=== PATIENT | female | born 1930 | race Caucasian/White ===

== ENCOUNTER 2016-10-08 07:45 | Inpatient (IN) | payer OTHER ==
[~2016-10-08] VITALS: Ht 152.4 cm; Wt 68.0 kg
--- NOTE | 2016-10-08 07:51 | ED GI/GU/ABDOMINAL COMPLAINT ---
History of Present Illness General Chief Complaint: Abdominal Pain/Flank Pain Stated Complaint: BIBA R FLANK PAIN Source: patient, EMS Exam Limitations: no limitations Vital Signs & Intake/Output Vital Signs & Intake/Output Vital Signs Date Time Temp Pulse Resp B/P Pulse O2 O2 Flow FiO2 Ox Delivery Rate 10/08 1650 98.5 69 20 200/90 92 Nasal 3.0L Cannula 10/08 1411 94 Nasal 3.0L Cannula 10/08 1410 99.0 64 22 178/75 87 Room Air 10/08 0946 98.3 10/08 0930 98.3 62 16 156/74 92 Room Air 10/08 0838 62 196/84 10/08 0819 98.3 10/08 0759 98.3 62 18 196/84 94 Room Air Allergies Coded Allergies: Penicillins (Intermediate, HIVES, ITCHING 10/08/16) Reconcile Medications Acetaminophen With Codeine (Acetaminophen-Cod #3 Tablet) 300 MG-30 MG TABLET 1 TAB PO DAILY PRN PAIN (Reported) Amlodipine Besylate/Benazepril (Amlodipine-Benazepril 10-40 MG) 10 MG-40 MG CAPSULE 1 CAP PO DAILY HEART (Reported) Clopidogrel Bisulfate (Clopidogrel) 75 MG TABLET 1 TAB PO DAILY BLOOD THINNER (Reported) Levothyroxine Sodium (Synthroid) 50 MCG TABLET 1 TAB PO DAILY AC THYROID ( Reported) Metoprolol Tartrate 25 MG TABLET 1 TAB PO BID HEART (Reported) Olanzapine 5 MG TABLET 0.5 TAB PO QPM SLEEP (Reported) Rabeprazole Sodium 20 MG TABLET.DR 1 TAB PO DAILY GI (Reported) Triage Nurses Notes Reviewed? yes ? n Is pt currently ? No Onset: Abrupt Duration: day(s): (1) Timing: multiple episodes today Location: right flank Activities at Onset: none No Modifying Factors: none Associated Symptoms: abdominal pain, nausea/vomiting HPI: 86 year female h/o previous AVR presents via EMS from home for chief complaint of sudden onset 8/10 right flank pain. Had similar symptoms 2 days ago which resolved on its own. Denies urinary symptoms. Positive vomiting, chills, epigastric pain, diarrhea. Denies chest pain, sob, blood in urine or stool. She reports vomiting all night long. Past History Travel History Traveled to [place] past 21 day No Medical History Any Pertinent Medical History? see below for history Cardiovascular: hypertension Endocrine: hypothyroidism Pneumonia Vaccine: 07/04/09 Influenza Vaccine: 04/17/12 Surgical History Surgical History: AVR Psychosocial History Who do you live with Patient/Self Services at Home None What is your primary language Romansh Tobacco Use: Quit >30 days ago Family History Hx Contributory? No Review of Systems Review of Systems Constitutional: Reports: chills, fever. EENTM: Reports: no symptoms. Respiratory: Reports: no symptoms. Cardiovascular: Reports: no symptoms. GI: Reports: abdominal pain, diarrhea, nausea, vomiting. Genitourinary: Denies: discharge, dysuria, frequency, hematuria. Musculoskeletal: Reports: no symptoms. Skin: Reports: no symptoms. Neurological/Psychological: Reports: no symptoms. Hematologic/Endocrine: Denies: bruising, bleeding, polyuria, polydipsia. Immunologic/Allergic: Denies: splenectomy. All Other Systems: Reviewed and Negative Physical Exam Physical Exam General Appearance: well developed/nourished, alert, awake, mild distress, moderate distress Head: atraumatic, normal appearance Eyes: Bilateral: normal appearance, PERRL, EOMI. Ears, Nose, Throat, Mouth: hearing grossly normal, DRY MUCUS MEMBRANES Neck: normal inspection, supple, full range of motion Respiratory: normal breath sounds, chest non-tender, no respiratory distress Cardiovascular: murmur Peripheral Pulses: 2+ radial (R), 2+ radial (L) Gastrointestinal: soft, tenderness (RUQ) Extremities: normal range of motion Neurologic/Psych: awake, alert, oriented x 3 Skin: intact, normal color, warm/dry Core Measures ACS in differential dx? No Severe Sepsis Present: No Septic Shock Present: No Progress Differential Diagnosis: biliary colic, cholecystitis, diverticulitis, gastritis, hepatitis, hernia, ischemic bowel, inflamm bowel dis, kidney stone, pancreatitis , peptic ulcer, PUD/GERD, perforated viscous, UTI/pyelo Plan of Care: Orders Procedure Date/time Status OXYGEN 10/16 UNK Complete OXYGEN DAILY CHARGE 10/16 UNK Complete INCENTIVE SPIROMETRY TRX CHG 10/15 UNK Complete OXYGEN 10/15 UNK Complete OXYGEN DAILY CHARGE 10/15 UNK Complete 12:39 PM Acute cholecystitis on MRI. Multiple gallstones, pericholecystic fluid, dilated cbp/pancreatic dilitation. CBD 1.1, panc duct 0.7 cm 1:14 PM D/W DR BOSWELL, SURGICAL PA PAGED. 3:15 PM PATIENT IN GI SUITE FOR ERCP. SUCCESSFUL ERCP. PATIENT WILL BE ADMITTD TO MEDICAL SERVICE UNDER DR WIGGINS. ([facility] ACEVEDO,CECILIA) Diagnostic Imaging: Viewed by Me: Radiology Read, CT Scan, MRI. Discussed w/RAD: Radiology Read, CT Scan, MRI. Initial ED EKG: LBBB Prior EKG: unchanged Comments: PATIENT: SRAVANTHI PARIKH PRESENT AGE: 86 PATIENT ACCOUNT NO: [id number] : [birth year] LOCATION: [facility] ORDERING PHYSICIAN: CECILIA BOURGEOIS MD SERVICE DATE: 10/08/16 EXAM TYPE: CAT - CT ABD & PELVIS W IV CONTRAST EXAMINATION: CT ABDOMEN AND PELVIS WITH CONTRAST CLINICAL INFORMATION: Right-sided abdominal pain and diarrhea. COMPARISON: CT of the abdomen and pelvis from 03/13/2010, CT chest from 01/28/2012 TECHNIQUE: Multidetector volumetric imaging was performed of the abdomen and pelvis before and after the IV administration of 95 mL of Optiray 320 intravenous contrast. Sagittal and coronal reformatted images were obtained on the technologist's workstation. DLP: 782 mGy-cm FINDINGS: LUNG BASES: There is partially visualized nodular pleural thickening along the right anterior pleural surface, stable from 2012. There are dependent changes within the lungs. Platelike opacities in the left base compatible with atelectasis. There is a large partially visualized hiatal hernia. Mild cardiomegaly is stable. There is calcification in the region of the mitral annulus are are partially imaged median sternotomy wires. A prosthetic aortic valve is imaged on the fractionating still operator. LIVER, GALLBLADDER, AND BILIARY TREE: The liver is normal in contour and attenuation. There is mild scattered intrahepatic biliary ductal dilatation. The common bile duct measures approximately 1 cm in diameter with normal tapering in the pancreatic head. There is mild prominence of the distal pancreatic duct as well, measuring 4 to 5 mm in diameter. The gallbladder is unremarkable with no evidence of radiopaque gallstones, gallbladder wall thickening, or obvious pericholecystic inflammatory changes. PANCREAS: Unremarkable. SPLEEN: Unremarkable. 2 tiny nodularities along the left anterior abdominal periphery appear to have been present previously as well and are most suggestive of small splenules. ADRENAL GLANDS: Mild thickening of the adrenal glands bilaterally, stable. KIDNEYS AND URETERS: There is no hydronephrosis or nephrolithiasis. Oval hypodensities are visualized within both kidneys, the largest of which in the interpolar region of the left kidney appears to have slightly grown in the interval since 2009 and currently measures 2.5 cm. The course of both ureters appears unremarkable. BLADDER: The bladder is under distended and unremarkable. GASTROINTESTINAL TRACT: Numerous sigmoid diverticula are visualized. Scattered diverticula are also present throughout the remainder of the colon. No convincing surrounding inflammation. 2 tiny outpouchings in the region of the cecum are noted which may reflect small diverticula although a short appendix could be represented by either 1. Otherwise no definitive appendix is visualized. Loops of small bowel appear fairly normal in caliber. ABDOMINAL WALL: No significant hernia is appreciated. LYMPH NODES: Small mesenteric and retroperitoneal lymph nodes are visualized without lymphadenopathy. A stable small calcified gastrohepatic ligament node is redemonstrated. VASCULAR: There is heavy atherosclerotic calcification without aneurysmal dilatation of the aorta. PELVIC VISCERA: There is a left adnexal cyst measuring 1.6 cm, which has grown in the interval since 2009. There appears to have been hysterectomy. OSSEOUS STRUCTURES: No compression deformities are visualized. There is multilevel spondylosis and a mild levoconvex lumbar scoliosis. No acute fractures are evident IMPRESSION: There are numerous colonic diverticula particularly in the sigmoid region without definitive superimposed inflammation. Mild intrahepatic biliary ductal dilatation. Correlation with LFTs is suggested. The common bile duct and distal pancreatic duct are slightly prominent, but taper normally. Left adnexal cyst measuring 1.6 cm. This could be further characterized with pelvic ultrasound. Partially visualized right-sided pleural plaques, stable from a chest CT of 2011. Mild cardiomegaly, aortic valve replacement, and median sternotomy wires, stable. Moderate sized hiatal hernia. Lumbar spondylosis and levoconvex lumbar scoliosis without compression deformity. DICTATED BY: DONA ELIZALDE MD DATE/TIME DICTATED:10/08/16952 ELECTRICAL INSTRUMENT MAKER:DAYAN DATE/TIME TRANSCRIBED:10/08/16952 CONFIDENTIAL, DO NOT COPY WITHOUT APPROPRIATE AUTHORIZATION. <Electronically signed in Other Vendor System> SIGNED BY: DONA ELIZALDE MD 10/08/16 1011 PATIENT: SRAVANTHI PARIKH PRESENT AGE: 86 PATIENT ACCOUNT NO: [id number] : [birth year] LOCATION: [facility] ORDERING PHYSICIAN: CECILIA BOURGEOIS MD SERVICE DATE: 10/08/16 EXAM TYPE: MRI - MRI-ABD W/O-W LILA EXAMINATION: MR ABDOMEN WITHOUT AND WITH CONTRAST CLINICAL INFORMATION: Evaluate for mass or biliary stones COMPARISON: CT abdomen and pelvis most recent prior dated 10/08/2016 TECHNIQUE: MRI of the abdomen before and after the IV administration of 14 mL of Magnevist was obtained using routine sequences. FINDINGS: Images are partly degraded by patient motion. Lung bases demonstrate dependent atelectatic changes. GALLBLADDER AND BILIARY TREE: Multiple small gallstones and sludge noted in the gallbladder extending into the gallbladder neck and cystic duct. (Series 8 image 28-51). There is mild pericholecystic edema especially evident at the level of the gallbladder neck. No gross evidence of gallbladder wall thickness. Multiple small calculi and sludge also noted within the CBD (series 8 image 32) . CBD measures approximately 1 to 1.1 cm in maximal diameter. Although it tapers the study, there is persistent presence of small amount of sludge and tiny stones. Intrahepatic biliary ductal dilatation. Distended gallbladder with mild enhancement of the gallbladder wall. LIVER: No evidence of hepatic steatosis. Post gadolinium images are degraded by patient motion. No gross evidence of abnormal enhancement. Intrahepatic biliary ductal dilatation. PANCREAS: Mild diffuse atrophy. There is pancreatic ductal dilatation especially evident at the level of the pancreatic head measuring approximately 0.6 cm (series 8 image 38). No gross evidence of peripancreatic fluid or edema. Post gadolinium images also degraded by patient motion do not demonstrate any gross evidence of abnormal enhancement. Spleen: Unremarkable. Adrenal glands: Within normal limits. Kidneys: T1 hypointense and T2 hyperintense dominant cystic structure noted in the mid outer aspect left kidney (series 3 image 22) measuring approximately 2.6 x 2.2 cm. There is suggestion of a debris level in the dependent portion of the cyst range disease series 3 image 22-23). Although the evaluation is significantly degraded post gadolinium sequences, there is subtle suggestion of enhancement along the posterior lateral aspect of the complex cyst (series 13-15 image 32/52 and series 17 image 31). Smaller T2 hyperintense cystic foci noted in bilateral renal cortices varying in size from 0.2 cm to 0.5 cm. GI TRACT: Moderate to large hiatal hernia. Visualized bowel loops are otherwise unremarkable. LYMPHOVASCULAR STRUCTURES: Evaluation of the portal venous system is limited due to motion degradation. No gross abnormality. Aorta is within normal limits in size. No gross evidence of lymphadenopathy. Additional findings: T2 hyperintense cystic foci noted in the regions of bilateral ovary/adnexa (series 2 image 10). These can be further assessed with nonemergent pelvic ultrasound. OSSEOUS STRUCTURES: Moderate scoliosis. No acute or suspicious osseous abnormality. IMPRESSION: 1. Multiple gallstones extending to the neck of the gallbladder and possibly cystic duct. Mild enhancement of the gallbladder wall with mild pericholecystic edema . Findings are suspicious for acute cholecystitis. 2. Choledocholithiasis with intrahepatic and extrahepatic biliary ductal dilatation . 3. Pancreatic ductal dilatation. No definite evidence of pancreatitis. No suspicious mass identified in the pancreas. Evaluation however is limited on the postgadolinium sequences due to motion degradation. 4. Complex cystic lesion lateral aspect mid left kidney. Urologic correlation recommended. 5. Bilateral ovarian cysts. Monitoring with nonemergent follow-up pelvic ultrasound recommended. Findings discussed with Dr. Bourgeois at 12:40 PM on 10/08/2016. DICTATED BY: LIZETH FAGAN MD DATE/TIME DICTATED:10/08/161228 ELECTRICAL INSTRUMENT MAKER:DAYAN DATE/TIME TRANSCRIBED:10/08/161228 CONFIDENTIAL, DO NOT COPY WITHOUT APPROPRIATE AUTHORIZATION. <Electronically signed in Other Vendor System> SIGNED BY: LIZETH FAGAN MD 10/08/16 1308 PATIENT: SRAVANTHI PARIKH PRESENT AGE: 86 PATIENT ACCOUNT NO: [id number] : [birth year] LOCATION: [facility] ORDERING PHYSICIAN: CECILIA BOURGEOIS MD SERVICE DATE: 10/08/16 EXAM TYPE: RAD - XRY-PORTABLE CHEST XRAY EXAMINATION: XR PORTABLE CHEST CLINICAL INFORMATION: Sepsis. Hypoxia. COMPARISON: 05/09/2012 TECHNIQUE: Portable AP view of the chest was obtained. FINDINGS: No acute pulmonary edema, focal consolidation or pleural effusion. There are old bilateral pleural plaques. Linear subpleural opacity of scarring or atelectasis is seen subjacent to a pleural plaque in the left lateral chest. Cardiomediastinal silhouette is mildly enlarged. Chronic prominence of the mediastinal fat and paracardiac fat pads. Moderate-sized hiatal hernia. Atherosclerotic calcification of the aorta. The sternotomy wires are intact. 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 IMPRESSION: 1. No evidence of acute pneumonia or pulmonary edema. 2. Moderate-sized hiatal hernia. 3. 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 DICTATED BY: RUPALI ARAYA MD DATE/TIME DICTATED:10/08/161438 ELECTRICAL INSTRUMENT MAKER:DAYAN DATE/TIME TRANSCRIBED:10/08/161438 CONFIDENTIAL, DO NOT COPY WITHOUT APPROPRIATE AUTHORIZATION. <Electronically signed in Other Vendor System> SIGNED BY: RUPALI ARAYA MD 10/08/16 1448 Departure Departure Time of Disposition: 1648 Disposition: STILL A PATIENT Condition: Stable Clinical Impression Primary Impression: Acute cholecystitis Secondary Impressions: Choledocholithiasis Referrals: ZAIDA ACEVEDO,TYLER Torrez (PCP/Family) Departure Forms: Customer Survey General Discharge Information Admission Note Spoke With: JORGITO WIGGINS MD Documentation of Exam: Documentation of any treatments & extenuating circumstances including Concerns Regarding Discharge (functional status, medication knowledge or non-compliance, living conditions, etc.) that warrant an admission rather than observation: [IV FLUIDS, IV ABX, SERIAL ABDOMINAL EXAMS, MONITOR I/O, F/U CULTURES, DR BOSWELL SURGICAL CONSULT, GI FOLLOW UP AFTER ERCP]
[2016-10-08] MEDS ORDERED: SYNTHROID50 MCG PO (08:19)
[2016-10-08] MEDS ORDERED: CLOPIDOGREL75 M1 PO (08:19)
[2016-10-08] MEDS ORDERED: AMLODIPINE-BEN1 EAC5 PO (08:19)
[2016-10-08] MEDS ORDERED: METOPROLOL TART25 M1 PO (08:19)
[2016-10-08] MEDS ORDERED: RABEPRAZOLE SOD20 M1 PO (08:20)
[2016-10-08] MEDS ORDERED: ACETAMINOPHEN-1 EAC3 PO (08:21)
--- NOTE | 2016-10-08 08:24 | NUR ---
PT BIBA FROM HOME WITH RIGHT SIDED ABDOMINAL PAIN SINCE 2AM. DENIES ANY URINARY S/S. STATES SHE HAD A FEW EPISODES OF VOMITING AND FEELS NAUSEOUS AT THIS TIME. DENIES ANY INCREASED PAIN UPON PALPATION. DENIES ANY CP/SOB. STATES SHE HAD LOOSE STOOLS YESTERDAY. PA STUDENT AND DR GROSSMAN TO [facility].
[2016-10-08 08:30] LABS: ABSOLUTE BASOPHIL COUNT 0 /CUMM (0.0-0.2); ABSOLUTE EOSINOPHIL COUNT 0 /CUMM (0.0-0.7); ABSOLUTE LYMPH COUNT 0.8 /CUMM (1.2-3.4); ABSOLUTE MONOCYTE COUNT 0.2 /CUMM (0.10-0.60); EOSINOPHIL % 0 % (0-5)
[2016-10-08 08:31] LABS: ABSOLUTE GRANULOCYTE CT 9.2 /CUMM (1.4-6.5); BASOPHIL % 0.1 % (0.0-2.0); HEMATOCRIT 49.7 % (37-47); MEAN CORPUSCULAR HGB CONC 33.2 G/DL (33.0-37.0); MEAN CORPUSCULAR VOLUME 87.3 FL (81.0-99.0); MEAN PLATELET VOLUME 9.1 FL (7.4-10.4); PLATELET COUNT 217 /CUMM (130-400); RBC DISTRIBUTION WIDTH 13.7 % (11.5-14.5); WHITE BLOOD CELL COUNT 10.3 /CUMM (4.8-10.8)
[2016-10-08] MEDS ORDERED: OLANZAPINE5 M2 PO (08:32)
[2016-10-08 08:39] LABS: PT 11.2 SEC (9.4-12.5); PTT 33 SEC (25-37)
[2016-10-08 08:43] LABS: GRANULOCYTE % 89.5 % (42.2-75.2)
--- NOTE | 2016-10-08 09:17 | NUR ---
PT AMBULATORY TO RESTROOM. URINE SENT TO LAB. REPOSITIONED IN BED.
--- NOTE | 2016-10-08 09:20 | NUR ---
[facility] ADMINISTERED ORDERED (SEE MAR) PTS BP 156/74 MANUAL POST ADMINISTRATION.
--- NOTE | 2016-10-08 09:30 | NUR ---
CRITICAL TEST RESULTS [id number] SRAVANTHI PARIKH 86 F TESTS AND RESULTS: LACTIC 2.1 Results received and read back by: HANSEL TRUJILLO Results received date and time: 10/08/16 0930 The following provider was notified of the results, and read the results back: DR GROSSMAN Notified date and time: 10/08/16 at 0925
--- NOTE | 2016-10-08 09:41 | NUR ---
PT TO CAT.
--- NOTE | 2016-10-08 09:46 | NUR ---
PT TO AND FROM CAT.
--- NOTE | 2016-10-08 09:46 | NUR ---
MEDICATED WITH MORPHINE 2MG (SEE MAR)
--- NOTE | 2016-10-08 10:11 | CT SCAN REPORT ---
EXAMINATION: CT ABDOMEN AND PELVIS WITH CONTRAST CLINICAL INFORMATION: Right-sided abdominal pain and diarrhea. COMPARISON: CT of the abdomen and pelvis from 03/13/2010, CT chest from 01/28/2012 TECHNIQUE: Multidetector volumetric imaging was performed of the abdomen and pelvis before and after the IV administration of 95 mL of Optiray 320 intravenous contrast. Sagittal and coronal reformatted images were obtained on the technologist's workstation. DLP: 782 mGy-cm FINDINGS: LUNG BASES: There is partially visualized nodular pleural thickening along the right anterior pleural surface, stable from 2012. There are dependent changes within the lungs. Platelike opacities in the left base compatible with atelectasis. There is a large partially visualized hiatal hernia. Mild cardiomegaly is stable. There is calcification in the region of the mitral annulus are are partially imaged median sternotomy wires. A prosthetic aortic valve is imaged on the health information managers. LIVER, GALLBLADDER, AND BILIARY TREE: The liver is normal in contour and attenuation. There is mild scattered intrahepatic biliary ductal dilatation. The common bile duct measures approximately 1 cm in diameter with normal tapering in the pancreatic head. There is mild prominence of the distal pancreatic duct as well, measuring 4 to 5 mm in diameter. The gallbladder is unremarkable with no evidence of radiopaque gallstones, gallbladder wall thickening, or obvious pericholecystic inflammatory changes. PANCREAS: Unremarkable. SPLEEN: Unremarkable. 2 tiny nodularities along the left anterior abdominal periphery appear to have been present previously as well and are most suggestive of small splenules. ADRENAL GLANDS: Mild thickening of the adrenal glands bilaterally, stable. KIDNEYS AND URETERS: There is no hydronephrosis or nephrolithiasis. Oval hypodensities are visualized within both kidneys, the largest of which in the interpolar region of the left kidney appears to have slightly grown in the interval since 2009 and currently measures 2.5 cm. The course of both ureters appears unremarkable. BLADDER: The bladder is under distended and unremarkable. GASTROINTESTINAL TRACT: Numerous sigmoid diverticula are visualized. Scattered diverticula are also present throughout the remainder of the colon. No convincing surrounding inflammation. 2 tiny outpouchings in the region of the cecum are noted which may reflect small diverticula although a short appendix could be represented by either 1. Otherwise no definitive appendix is visualized. Loops of small bowel appear fairly normal in caliber. ABDOMINAL WALL: No significant hernia is appreciated. LYMPH NODES: Small mesenteric and retroperitoneal lymph nodes are visualized without lymphadenopathy. A stable small calcified gastrohepatic ligament node is redemonstrated. VASCULAR: There is heavy atherosclerotic calcification without aneurysmal dilatation of the aorta. PELVIC VISCERA: There is a left adnexal cyst measuring 1.6 cm, which has grown in the interval since 2009. There appears to have been hysterectomy. OSSEOUS STRUCTURES: No compression deformities are visualized. There is multilevel spondylosis and a mild levoconvex lumbar scoliosis. No acute fractures are evident IMPRESSION: There are numerous colonic diverticula particularly in the sigmoid region without definitive superimposed inflammation. Mild intrahepatic biliary ductal dilatation. Correlation with LFTs is suggested. The common bile duct and distal pancreatic duct are slightly prominent, but taper normally. Left adnexal cyst measuring 1.6 cm. This could be further characterized with pelvic ultrasound. Partially visualized right-sided pleural plaques, stable from a chest CT of 2011. Mild cardiomegaly, aortic valve replacement, and median sternotomy wires, stable. Moderate sized hiatal hernia. Lumbar spondylosis and levoconvex lumbar scoliosis without compression deformity.
--- NOTE | 2016-10-08 10:50 | NUR ---
SPOKE TO DAUGHTER, STATES THAT PT HAS A PIG VALVE IN PLACE. UNSURE OF ANYTHING RELATED WITH THE VALVE. MRI CALLED AND MADE AWARE OF SAME - THEY ARE GOING TO CALL DAUGHTER WELL.
--- NOTE | 2016-10-08 11:03 | NUR ---
PT TO MRI.
--- NOTE | 2016-10-08 12:00 | NUR ---
REPEAT LACTIC DRAWN AND SENT BY THIS [facility] SST, LAV, LARKIN
--- NOTE | 2016-10-08 12:46 | NUR ---
PT AMBULATORY TO BATHROOM WITH WALKER, GAIT STABLE.
--- NOTE | 2016-10-08 13:08 | MRI REPORT ---
EXAMINATION: MR ABDOMEN WITHOUT AND WITH CONTRAST CLINICAL INFORMATION: Evaluate for mass or biliary stones COMPARISON: CT abdomen and pelvis most recent prior dated 10/08/2016 TECHNIQUE: MRI of the abdomen before and after the IV administration of 14 mL of Magnevist was obtained using routine sequences. FINDINGS: Images are partly degraded by patient motion. Lung bases demonstrate dependent atelectatic changes. GALLBLADDER AND BILIARY TREE: Multiple small gallstones and sludge noted in the gallbladder extending into the gallbladder neck and cystic duct. (Series 8 image 28-51). There is mild pericholecystic edema especially evident at the level of the gallbladder neck. No gross evidence of gallbladder wall thickness. Multiple small calculi and sludge also noted within the CBD (series 8 image 32) . CBD measures approximately 1 to 1.1 cm in maximal diameter. Although it tapers the study, there is persistent presence of small amount of sludge and tiny stones. Intrahepatic biliary ductal dilatation. Distended gallbladder with mild enhancement of the gallbladder wall. LIVER: No evidence of hepatic steatosis. Post gadolinium images are degraded by patient motion. No gross evidence of abnormal enhancement. Intrahepatic biliary ductal dilatation. PANCREAS: Mild diffuse atrophy. There is pancreatic ductal dilatation especially evident at the level of the pancreatic head measuring approximately 0.6 cm (series 8 image 38). No gross evidence of peripancreatic fluid or edema. Post gadolinium images also degraded by patient motion do not demonstrate any gross evidence of abnormal enhancement. Spleen: Unremarkable. Adrenal glands: Within normal limits. Kidneys: T1 hypointense and T2 hyperintense dominant cystic structure noted in the mid outer aspect left kidney (series 3 image 22) measuring approximately 2.6 x 2.2 cm. There is suggestion of a debris level in the dependent portion of the cyst range disease series 3 image 22-23). Although the evaluation is significantly degraded post gadolinium sequences, there is subtle suggestion of enhancement along the posterior lateral aspect of the complex cyst (series 13-15 image 32/52 and series 17 image 31). Smaller T2 hyperintense cystic foci noted in bilateral renal cortices varying in size from 0.2 cm to 0.5 cm. GI TRACT: Moderate to large hiatal hernia. Visualized bowel loops are otherwise unremarkable. LYMPHOVASCULAR STRUCTURES: Evaluation of the portal venous system is limited due to motion degradation. No gross abnormality. Aorta is within normal limits in size. No gross evidence of lymphadenopathy. Additional findings: T2 hyperintense cystic foci noted in the regions of bilateral ovary/adnexa (series 2 image 10). These can be further assessed with nonemergent pelvic ultrasound. OSSEOUS STRUCTURES: Moderate scoliosis. No acute or suspicious osseous abnormality. IMPRESSION: 1. Multiple gallstones extending to the neck of the gallbladder and possibly cystic duct. Mild enhancement of the gallbladder wall with mild pericholecystic edema . Findings are suspicious for acute cholecystitis. 2. Choledocholithiasis with intrahepatic and extrahepatic biliary ductal dilatation . 3. Pancreatic ductal dilatation. No definite evidence of pancreatitis. No suspicious mass identified in the pancreas. Evaluation however is limited on the postgadolinium sequences due to motion degradation. 4. Complex cystic lesion lateral aspect mid left kidney. Urologic correlation recommended. 5. Bilateral ovarian cysts. Monitoring with nonemergent follow-up pelvic ultrasound recommended. Findings discussed with Dr. Bourgeois at 12:40 PM on 10/08/2016.
--- NOTE | 2016-10-08 13:15 | NUR ---
ROCEPHIN ORDERED (SEE MAR)
--- NOTE | 2016-10-08 14:10 | NUR ---
PTS SATS NOTED TO DROP TO 90%, PLACED ON 3L O2 VIA NC.
--- NOTE | 2016-10-08 14:24 | NUR ---
DR LEOS TO [facility].
--- NOTE | 2016-10-08 14:35 | Cons- Gastroenterology ---
General Information and HPI Consulting Request Date of Consult: 10/08/16 Requested By: Saul Rosado MD Reason for Consult: Choledocholithiasis, right upper quadrant pain. Source of Information: patient, family, old records Exam Limitations: no limitations History of Present Illness: Ms. 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 The patient notes early this morning she was awoken with severe right upper quadrant pain which was associated with bilious vomiting. The pain radiated around to her right flank, but not through to her back. She was without any hematemesis. She has some chills but no documented fevers. She has not had any jaundice and she denies any kenney-colored stool or dark urine, but she has been having some loose non-bloody stool as of late. She takes a PPI at home for heartburn which is controlling that symptom well and other than some intermittent dysphagia to lettuce she has not had any significant solid food dysphagia or dysphagia to liquids. On arrival to the ER she is afebrile and hemodynamically stable and while she continues to complain of some right upper quadrant discomfort she notes it is markedly improved from when it started last night/early this morning. Allergies/Medications Allergies: Coded Allergies: Penicillins (Intermediate, HIVES, ITCHING 10/08/16) Home Med List: Acetaminophen With Codeine (Acetaminophen-Cod #3 Tablet) 300 MG-30 MG TABLET 1 TAB PO DAILY PRN PAIN (Reported) Amlodipine Besylate/Benazepril (Amlodipine-Benazepril 10-40 MG) 10 MG-40 MG CAPSULE 1 CAP PO DAILY HEART (Reported) Clopidogrel Bisulfate (Clopidogrel) 75 MG TABLET 1 TAB PO DAILY BLOOD THINNER (Reported) Levothyroxine Sodium (Synthroid) 50 MCG TABLET 1 TAB PO DAILY AC THYROID ( Reported) Metoprolol Tartrate 25 MG TABLET 1 TAB PO BID HEART (Reported) Olanzapine 5 MG TABLET 0.5 TAB PO QPM SLEEP (Reported) Rabeprazole Sodium 20 MG TABLET.DR 1 TAB PO DAILY GI (Reported) Current Medications: Current Medications Sig/Rajeev Start time Last Medication Dose Route Stop Time Status Admin Acetaminophen 0 .STK-MED ONE 10/08 0816 DC IV Acetaminophen 1,000 MG ONCE ONE 10/08 0815 DC 10/08 N/A 1 UNIT IV 10/08 0829 0819 Ceftriaxone Sodium 0 .STK-MED ONE 10/08 1313 DC .ROUTE Ceftriaxone Sodium 1,000 MG ONCE ONE 10/08 1245 DC / IV 10/08 1246 1330 Enalaprilat 0 .STK-MED ONE 10/08 0829 DC IV Enalaprilat 1.25 MG ONCE ONE 10/08 0815 DC / IV 10/08 0816 0838 Metronidazole 500 MG ONCE ONE 10/08 1245 DC 04/ N/A 1 UNIT IV 10/08 1344 1424 Morphine Sulfate 2 MG ONCE ONE 10/08 0930 DC 10/08 IV 10/08 0931 0946 Morphine Sulfate 0 .STK-MED ONE 10/08 0929 DC .ROUTE Ondansetron HCl 0 .STK-MED ONE 10/08 0816 DC .ROUTE Ondansetron HCl 4 MG ONCE ONE 10/08 0800 DC 10/08 IV 10/08 0801 0819 Sodium Chloride 500 ML BOLUS ONE 10/08 1245 DC 04/ IV 10/08 1344 1315 Sodium Chloride 500 ML BOLUS ONE 10/08 0800 DC 10/08 IV 10/08 0859 0819 Past History Travel History Traveled to [place] past 21 day No Medical History Cardiovascular: hypertension Endocrine: hypothyroidism Surgical History Surgical History: AVR Psychosocial History Services at Home: None Review of Systems Review of Systems Constitutional: Reports: chills, malaise, weakness. Denies: diaphoresis, fever. EENTM: Denies: no symptoms. Cardiovascular: Denies: no symptoms. Respiratory: Denies: no symptoms. GI: Reports: see HPI. Genitourinary: Denies: no symptoms. Musculoskeletal: Reports: joint pain, muscle pain. Denies: joint swelling. Skin: Denies: no symptoms. Neurological/Psychological: Denies: no symptoms. Hematologic/Endocrine: Denies: no symptoms. Immunologic/Allergic: Denies: no symptoms. All Other Systems: Reviewed and Negative Exam & Diagnostic Data Vital Signs and I&O Vital Signs Date Time Temp Pulse Resp B/P Pulse O2 O2 Flow FiO2 Ox Delivery Rate 10/08 1411 94 Nasal 3.0L Cannula 10/08 1410 99.0 64 22 178/75 87 Room Air 04/07 0946 98.3 10/08 0930 98.3 62 16 156/74 92 Room Air 10/08 0838 62 196/84 10/08 0819 98.3 10/08 0759 98.3 62 18 196/84 94 Room Air Intake & Output 10/08 1600 10/08 0400 10/07 04010/06 0400 Intake Total 1100 Output Total 50 Balance 1050 Intake, IV 1100 Output, Urine 50 Physical Exam General Appearance: well developed/nourished, no apparent distress, alert, awake , comfortable Head: atraumatic, normal appearance Eyes: Bilateral: normal appearance. Ears, Nose, Throat: normal pharynx, normal ENT inspection Neck: normal inspection, supple, full range of motion Respiratory: normal breath sounds, chest non-tender, no respiratory distress Cardiovascular: regular rate/rhythm Gastrointestinal: normal bowel sounds, soft, tenderness, mild tenderness to deep palpation of ruq Rectal: deferred Back: normal inspection, normal range of motion Extremities: normal inspection, normal range of motion Skin: intact, normal color, warm/dry Results Pertinent Lab Results: Laboratory Tests 10/08 10/08 1200 0913 Chemistry Lactic Acid (0.7 - 2.1 mmol/L) 2.9 H Urines Urine Color (YEL,AMB,STR) YEL Urine Clarity (CLEAR) CLEAR Urine pH (5.0 - 8.0) 6.5 Ur Specific Freedom (1.001 - 1.035) 1.020 Urine Protein (NEG,<30 MG/DL) TRACE H Urine Ketones (NEG) NEG Urine Nitrite (NEG) NEG Urine Bilirubin (NEG) NEG Urine Urobilinogen (0.1 - 1.0 EU/dl) 0.2 Ur Leukocyte Esterase (NEG) NEG Ur Microscopic SEDIMENT EXAMINED Urine RBC (0 - 5 /HPF) 1-3 Ur Epithelial Cells (NONE,FEW) FEW Urine Bacteria (NEG/NONE) FEW H Hyaline Casts (0/LPF) RARE H Urine Hemoglobin (NEG) SMALL H Urine Glucose (N MG/DL) 250 H 10/08 0810 Chemistry Sodium (137 - 145 mmol/L) 140 Potassium (3.5 - 5.1 mmol/L) 4.4 Chloride (98 - 107 mmol/L) 103 Carbon Dioxide (22 - 30 mmol/L) 24 Anion Gap (5 - 16) 13 BUN (7 - 17 mg/dL) 12 Creatinine (0.5 - 1.0 mg/dL) 0.7 Estimated GFR (>60 ml/min) > 60 BUN/Creatinine Ratio (7 - 25 %) 17.1 Glucose (65 - 99 mg/dL) 183 H Lactic Acid (0.7 - 2.1 mmol/L) 2.1 Calcium (8.4 - 10.2 mg/dL) 9.5 Total Bilirubin (0.2 - 1.3 mg/dL) 0.7 Direct Bilirubin (< 0.4 mg/dL) 0.5 H AST (14 - 36 U/L) 27 ALT (9 - 52 U/L) 37 Alkaline Phosphatase (<127 U/L) 154 H Troponin I (< 0.11 ng/ml) < 0.01 Total Protein (6.3 - 8.2 g/dL) 7.6 Albumin (3.5 - 5.0 g/dL) 4.4 Globulin (1.9 - 4.2 gm/dL) 3.2 Albumin/Globulin Ratio (1.1 - 2.2 %) 1.4 Lipase (23 - 300 U/L) 59 Coagulation PT (9.4 - 12.5 SEC) 11.2 INR (0.90 - 1.19) 1.07 APTT (25 - 37 SEC) 33 Hematology CBC w Diff NO MAN DIFF REQ WBC (4.8 - 10.8 /CUMM) 10.3 RBC (4.20 - 5.40 /CUMM) 5.70 H Hgb (12.0 - 16.0 G/DL) 16.5 H Hct (37 - 47 %) 49.7 H MCV (81.0 - 99.0 FL) 87.3 MCH (27.0 - 31.0 PG) 29.0 RDW (11.5 - 14.5 %) 13.7 Plt Count (130 - 400 /CUMM) 217 MPV (7.4 - 10.4 FL) 9.1 Gran % (42.2 - 75.2 %) 89.5 H Lymphocytes % (20.5 - 51.1 %) 8.1 L Monocytes % (1.7 - 9.3 %) 2.3 Eosinophils % (0 - 5 %) 0 Basophils % (0.0 - 2.0 %) 0.1 Absolute Granulocytes (1.4 - 6.5 /CUMM) 9.2 H Absolute Lymphocytes (1.2 - 3.4 /CUMM) 0.8 L Absolute Monocytes (0.10 - 0.60 /CUMM) 0.2 Absolute Eosinophils (0.0 - 0.7 /CUMM) 0 Absolute Basophils (0.0 - 0.2 /CUMM) 0 PUBS MCHC (33.0 - 37.0 G/DL) 33.2 Imaging/Other Studies: ct scan: EXAM TYPE: CAT - CT ABD & PELVIS W IV CONTRAST EXAMINATION: CT ABDOMEN AND PELVIS WITH CONTRAST CLINICAL INFORMATION: Right-sided abdominal pain and diarrhea. COMPARISON: CT of the abdomen and pelvis from 03/13/2010, CT chest from 01/28/2012 TECHNIQUE: Multidetector volumetric imaging was performed of the abdomen and pelvis before and after the IV administration of 95 mL of Optiray 320 intravenous contrast. Sagittal and coronal reformatted images were obtained on the technologist's workstation. DLP: 782 mGy-cm FINDINGS: LUNG BASES: There is partially visualized nodular pleural thickening along the right anterior pleural surface, stable from 2012. There are dependent changes within the lungs. Platelike opacities in the left base compatible with atelectasis. There is a large partially visualized hiatal hernia. Mild cardiomegaly is stable. There is calcification in the region of the mitral annulus are are partially imaged median sternotomy wires. A prosthetic aortic valve is imaged on the compression molding machine tender. LIVER, GALLBLADDER, AND BILIARY TREE: The liver is normal in contour and attenuation. There is mild scattered intrahepatic biliary ductal dilatation. The common bile duct measures approximately 1 cm in diameter with normal tapering in the pancreatic head. There is mild prominence of the distal pancreatic duct as well, measuring 4 to 5 mm in diameter. The gallbladder is unremarkable with no evidence of radiopaque gallstones, gallbladder wall thickening, or obvious pericholecystic inflammatory changes. PANCREAS: Unremarkable. SPLEEN: Unremarkable. 2 tiny nodularities along the left anterior abdominal periphery appear to have been present previously as well and are most suggestive of small splenules. ADRENAL GLANDS: Mild thickening of the adrenal glands bilaterally, stable. KIDNEYS AND URETERS: There is no hydronephrosis or nephrolithiasis. Oval hypodensities are visualized within both kidneys, the largest of which in the interpolar region of the left kidney appears to have slightly grown in the interval since 2009 and currently measures 2.5 cm. The course of both ureters appears unremarkable. BLADDER: The bladder is under distended and unremarkable. GASTROINTESTINAL TRACT: Numerous sigmoid diverticula are visualized. Scattered diverticula are also present throughout the remainder of the colon. No convincing surrounding inflammation. 2 tiny outpouchings in the region of the cecum are noted which may reflect small diverticula although a short appendix could be represented by either 1. Otherwise no definitive appendix is visualized. Loops of small bowel appear fairly normal in caliber. ABDOMINAL WALL: No significant hernia is appreciated. LYMPH NODES: Small mesenteric and retroperitoneal lymph nodes are visualized without lymphadenopathy. A stable small calcified gastrohepatic ligament node is redemonstrated. VASCULAR: There is heavy atherosclerotic calcification without aneurysmal dilatation of the aorta. PELVIC VISCERA: There is a left adnexal cyst measuring 1.6 cm, which has grown in the interval since 2009. There appears to have been hysterectomy. OSSEOUS STRUCTURES: No compression deformities are visualized. There is multilevel spondylosis and a mild levoconvex lumbar scoliosis. No acute fractures are evident IMPRESSION: There are numerous colonic diverticula particularly in the sigmoid region without definitive superimposed inflammation. Mild intrahepatic biliary ductal dilatation. Correlation with LFTs is suggested. The common bile duct and distal pancreatic duct are slightly prominent, but taper normally. Left adnexal cyst measuring 1.6 cm. This could be further characterized with pelvic ultrasound. Partially visualized right-sided pleural plaques, stable from a chest CT of 2011. Mild cardiomegaly, aortic valve replacement, and median sternotomy wires, stable. Moderate sized hiatal hernia. Lumbar spondylosis and levoconvex lumbar scoliosis without compression deformity. MRI: EXAM TYPE: MRI - MRI-ABD W/O-W LILA EXAMINATION: MR ABDOMEN WITHOUT AND WITH CONTRAST CLINICAL INFORMATION: Evaluate for mass or biliary stones COMPARISON: CT abdomen and pelvis most recent prior dated 10/08/2016 TECHNIQUE: MRI of the abdomen before and after the IV administration of 14 mL of Magnevist was obtained using routine sequences. FINDINGS: Images are partly degraded by patient motion. Lung bases demonstrate dependent atelectatic changes. GALLBLADDER AND BILIARY TREE: Multiple small gallstones and sludge noted in the gallbladder extending into the gallbladder neck and cystic duct. (Series 8 image 28-51). There is mild pericholecystic edema especially evident at the level of the gallbladder neck. No gross evidence of gallbladder wall thickness. Multiple small calculi and sludge also noted within the CBD (series 8 image 32) . CBD measures approximately 1 to 1.1 cm in maximal diameter. Although it tapers the study, there is persistent presence of small amount of sludge and tiny stones. Intrahepatic biliary ductal dilatation. Distended gallbladder with mild enhancement of the gallbladder wall. LIVER: No evidence of hepatic steatosis. Post gadolinium images are degraded by patient motion. No gross evidence of abnormal enhancement. Intrahepatic biliary ductal dilatation. PANCREAS: Mild diffuse atrophy. There is pancreatic ductal dilatation especially evident at the level of the pancreatic head measuring approximately 0.6 cm (series 8 image 38). No gross evidence of peripancreatic fluid or edema. Post gadolinium images also degraded by patient motion do not demonstrate any gross evidence of abnormal enhancement. Spleen: Unremarkable. Adrenal glands: Within normal limits. Kidneys: T1 hypointense and T2 hyperintense dominant cystic structure noted in the mid outer aspect left kidney (series 3 image 22) measuring approximately 2.6 x 2.2 cm. There is suggestion of a debris level in the dependent portion of the cyst range disease series 3 image 22-23). Although the evaluation is significantly degraded post gadolinium sequences, there is subtle suggestion of enhancement along the posterior lateral aspect of the complex cyst (series 13-15 image 32/52 and series 17 image 31). Smaller T2 hyperintense cystic foci noted in bilateral renal cortices varying in size from 0.2 cm to 0.5 cm. GI TRACT: Moderate to large hiatal hernia. Visualized bowel loops are otherwise unremarkable. LYMPHOVASCULAR STRUCTURES: Evaluation of the portal venous system is limited due to motion degradation. No gross abnormality. Aorta is within normal limits in size. No gross evidence of lymphadenopathy. Additional findings: T2 hyperintense cystic foci noted in the regions of bilateral ovary/adnexa (series 2 image 10). These can be further assessed with nonemergent pelvic ultrasound. OSSEOUS STRUCTURES: Moderate scoliosis. No acute or suspicious osseous abnormality. IMPRESSION: 1. Multiple gallstones extending to the neck of the gallbladder and possibly cystic duct. Mild enhancement of the gallbladder wall with mild pericholecystic edema . Findings are suspicious for acute cholecystitis. 2. Choledocholithiasis with intrahepatic and extrahepatic biliary ductal dilatation . 3. Pancreatic ductal dilatation. No definite evidence of pancreatitis. No suspicious mass identified in the pancreas. Evaluation however is limited on the postgadolinium sequences due to motion degradation. 4. Complex cystic lesion lateral aspect mid left kidney. Urologic correlation recommended. 5. Bilateral ovarian cysts. Monitoring with nonemergent follow-up pelvic ultrasound recommended. Findings discussed with Dr. Bourgeois at 12:40 PM on 10/08/2016. Assessment/Plan Assessment/Recommendations: Assessment: Ms. Norman is an 86-year-old female who presents with right upper quadrant pain and associated chills and bilious vomiting who was been found to have evidence of cholecystitis and choledocholithiasis on an MRCP. She is currently without evidence of obstructive jaundice or cholangitis, but as there are filling defects within a dilated common bile duct she should have an ERCP to remove any stones within the common bile duct which we'll arrange to do later today. If she is a surgical candidate her gallbladder should also be removed to prevent future attacks, but if it is deemed she is not a surgical candidate a prophylactic sphincterotomy may be performed as an alternative. If she has stones however, a sphincterotomy will be done anyway and this point will become moot. Recommendations: 1. Keep nothing by mouth. 2. Continue IV antibiotics. 3. Follow daily LFTs. 4. Follow-up surgical consultation recommendations. 5. We'll arrange for a ERCP to be performed later today to evaluate for choledocholithiasis and remove any visualized stones within the common bile duct. Of note, considering her history of esophageal strictures requiring dilation a diagnostic EGD with a front viewing scope may be done before blindly passing the side viewing scope. 6. GI should be notified for signs of cholangitis such as right upper quadrant pain with fevers and/or mental status changes. I will continue to follow this patient and make further recognitions based on her clinical course and results of the ERCP. Problem List: 1. Abdominal pain 2. Acute cholecystitis Copies To: ZAIDA ACEVEDO,TYLER Lundberg. Consult Acknowledgment - Thank you for your consult request.
--- NOTE | 2016-10-08 14:43 | NUR ---
PT TO GI AT THIS TIME.
--- NOTE | 2016-10-08 14:48 | RADIOLOGY REPORT ---
EXAMINATION: XR PORTABLE CHEST CLINICAL INFORMATION: Sepsis. Hypoxia. COMPARISON: 05/09/2012 TECHNIQUE: Portable AP view of the chest was obtained. FINDINGS: No acute pulmonary edema, focal consolidation or pleural effusion. There are old bilateral pleural plaques. Linear subpleural opacity of scarring or atelectasis is seen subjacent to a pleural plaque in the left lateral chest. Cardiomediastinal silhouette is mildly enlarged. Chronic prominence of the mediastinal fat and paracardiac fat pads. Moderate-sized hiatal hernia. Atherosclerotic calcification of the aorta. The sternotomy wires are intact. 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 IMPRESSION: 1. No evidence of acute pneumonia or pulmonary edema. 2. Moderate-sized hiatal hernia. 3. 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
--- NOTE | 2016-10-08 15:16 | Cons- General Surgery ---
TIFFANIE BRANDON 10/08/16 1456: General Information and HPI Consulting Request Date of Consult: 10/08/16 Requested By: Alonzo ACEVEDO Reason for Consult: acute cholecystitis with choledocolithiasis Source of Information: patient, family, old records Exam Limitations: no limitations History of Present Illness: Patient was brought in by ambulance today with complaints of abdominal and right flank pain that began one day ago. This pain was accompanied by 12 hours of vomitting as well as intermittent diarrhea. An episode like this took place two days ago with what was presumed to be a resolution of symptoms. However, what began yesterday was more significant with regard to intensity. She states that she has felt febrile over the past day. She denies any chest pain or shortness of breath. She denies any headaches or blurred vision. She denies any difficulty urinating. She denies kenney/light colored stool. She denies any discomfort to bilateral upper and lower extremities. Allergies/Medications Home Med List: Acetaminophen With Codeine (Acetaminophen-Cod #3 Tablet) 300 MG-30 MG TABLET 1 TAB PO DAILY PRN PAIN (Reported) Amlodipine Besylate/Benazepril (Amlodipine-Benazepril 10-40 MG) 10 MG-40 MG CAPSULE 1 CAP PO DAILY HEART (Reported) Clopidogrel Bisulfate (Clopidogrel) 75 MG TABLET 1 TAB PO DAILY BLOOD THINNER (Reported) Levothyroxine Sodium (Synthroid) 50 MCG TABLET 1 TAB PO DAILY AC THYROID ( Reported) Metoprolol Tartrate 25 MG TABLET 1 TAB PO BID HEART (Reported) Olanzapine 5 MG TABLET 0.5 TAB PO QPM SLEEP (Reported) Rabeprazole Sodium 20 MG TABLET.DR 1 TAB PO DAILY GI (Reported) Past History Medical History Cardiovascular: hypertension Gastrointestinal: schatzki ring Endocrine: hypothyroidism Surgical History Pertinent Surgical History: appendectomy, hysterectomy, AVR Psychosocial History Where Do You Live? Home Services at Home: None Review of Systems Review of Systems Constitutional: Reports: chills, fever, malaise. EENTM: Reports: no symptoms. Cardiovascular: Reports: no symptoms. Respiratory: Reports: no symptoms. GI: Reports: abdominal pain, diarrhea, nausea. Genitourinary: Reports: no symptoms. Musculoskeletal: Reports: no symptoms. Skin: Reports: no symptoms. Neurological/Psychological: Reports: no symptoms. Hematologic/Endocrine: Reports: no symptoms. Immunologic/Allergic: Reports: no symptoms. All Other Systems: Reviewed and Negative Exam & Diagnostic Data Vital Signs and I&O Vital Signs Date Time Temp Pulse Resp B/P Pulse O2 O2 Flow FiO2 Ox Delivery Rate 10/08 1411 94 Nasal 3.0L Cannula 10/08 1410 99.0 64 22 178/75 87 Room Air 10/08 0946 98.3 10/08 0930 98.3 62 16 156/74 92 Room Air 10/08 0838 62 196/84 10/08 0819 98.3 10/08 0759 98.3 62 18 196/84 94 Room Air Intake & Output 10/08 1600 10/08 0800 10/08 0000 10/07 1600 10/07 0800 10/07 0000 Intake Total 1100 Output Total 50 Balance 1050 Intake, IV 1100 Output, Urine 50 Imaging: PATIENT: SRAVANTHI PARIKH PRESENT AGE: 86 PATIENT ACCOUNT NO: [id number] : [birth year] LOCATION: [facility] ORDERING PHYSICIAN: CECILIA BOURGEOIS MD SERVICE DATE: 10/08/16 EXAM TYPE: MRI - MRI-ABD W/O-W LLIA EXAMINATION: MR ABDOMEN WITHOUT AND WITH CONTRAST CLINICAL INFORMATION: Evaluate for mass or biliary stones COMPARISON: CT abdomen and pelvis most recent prior dated 10/08/2016 TECHNIQUE: MRI of the abdomen before and after the IV administration of 14 mL of Magnevist was obtained using routine sequences. FINDINGS: Images are partly degraded by patient motion. Lung bases demonstrate dependent atelectatic changes. GALLBLADDER AND BILIARY TREE: Multiple small gallstones and sludge noted in the gallbladder extending into the gallbladder neck and cystic duct. (Series 8 image 28-51). There is mild pericholecystic edema especially evident at the level of the gallbladder neck. No gross evidence of gallbladder wall thickness. Multiple small calculi and sludge also noted within the CBD (series 8 image 32) . CBD measures approximately 1 to 1.1 cm in maximal diameter. Although it tapers the study, there is persistent presence of small amount of sludge and tiny stones. Intrahepatic biliary ductal dilatation. Distended gallbladder with mild enhancement of the gallbladder wall. LIVER: No evidence of hepatic steatosis. Post gadolinium images are degraded by patient motion. No gross evidence of abnormal enhancement. Intrahepatic biliary ductal dilatation. PANCREAS: Mild diffuse atrophy. There is pancreatic ductal dilatation especially evident at the level of the pancreatic head measuring approximately 0.6 cm (series 8 image 38). No gross evidence of peripancreatic fluid or edema. Post gadolinium images also degraded by patient motion do not demonstrate any gross evidence of abnormal enhancement. Spleen: Unremarkable. Adrenal glands: Within normal limits. Kidneys: T1 hypointense and T2 hyperintense dominant cystic structure noted in the mid outer aspect left kidney (series 3 image 22) measuring approximately 2.6 x 2.2 cm. There is suggestion of a debris level in the dependent portion of the cyst range disease series 3 image 22-23). Although the evaluation is significantly degraded post gadolinium sequences, there is subtle suggestion of enhancement along the posterior lateral aspect of the complex cyst (series 13-15 image 32/52 and series 17 image 31). Smaller T2 hyperintense cystic foci noted in bilateral renal cortices varying in size from 0.2 cm to 0.5 cm. GI TRACT: Moderate to large hiatal hernia. Visualized bowel loops are otherwise unremarkable. LYMPHOVASCULAR STRUCTURES: Evaluation of the portal venous system is limited due to motion degradation. No gross abnormality. Aorta is within normal limits in size. No gross evidence of lymphadenopathy. Additional findings: T2 hyperintense cystic foci noted in the regions of bilateral ovary/adnexa (series 2 image 10). These can be further assessed with nonemergent pelvic ultrasound. OSSEOUS STRUCTURES: Moderate scoliosis. No acute or suspicious osseous abnormality. IMPRESSION: 1. Multiple gallstones extending to the neck of the gallbladder and possibly cystic duct. Mild enhancement of the gallbladder wall with mild pericholecystic edema . Findings are suspicious for acute cholecystitis. 2. Choledocholithiasis with intrahepatic and extrahepatic biliary ductal dilatation . 3. Pancreatic ductal dilatation. No definite evidence of pancreatitis. No suspicious mass identified in the pancreas. Evaluation however is limited on the postgadolinium sequences due to motion degradation. 4. Complex cystic lesion lateral aspect mid left kidney. Urologic correlation recommended. 5. Bilateral ovarian cysts. Monitoring with nonemergent follow-up pelvic ultrasound recommended. Findings discussed with Dr. Bougreois at 12:40 PM on 10/08/2016. DICTATED BY: LIZETH FAGAN MD DATE/TIME DICTATED:10/08/161228 PIPE CONNECTOR:DAYAN DATE/TIME TRANSCRIBED:10/08/161228 CONFIDENTIAL, DO NOT COPY WITHOUT APPROPRIATE AUTHORIZATION. <Electronically signed in Other Vendor System> SIGNED BY: LIZETH FAGAN MD 10/08/16 1308 PATIENT: SRAVANTHI PARIKH PRESENT AGE: 86 PATIENT ACCOUNT NO: [id number] : [birth year] LOCATION: [facility] ORDERING PHYSICIAN: CECILIA BOURGEOIS MD SERVICE DATE: 10/08/1671 EXAM TYPE: CAT - CT ABD & PELVIS W IV CONTRAST EXAMINATION: CT ABDOMEN AND PELVIS WITH CONTRAST CLINICAL INFORMATION: Right-sided abdominal pain and diarrhea. COMPARISON: CT of the abdomen and pelvis from 03/13/2010, CT chest from 01/28/2012 TECHNIQUE: Multidetector volumetric imaging was performed of the abdomen and pelvis before and after the IV administration of 95 mL of Optiray 320 intravenous contrast. Sagittal and coronal reformatted images were obtained on the technologist's workstation. DLP: 782 mGy-cm FINDINGS: LUNG BASES: There is partially visualized nodular pleural thickening along the right anterior pleural surface, stable from 2011. There are dependent changes within the lungs. Platelike opacities in the left base compatible with atelectasis. There is a large partially visualized hiatal hernia. Mild cardiomegaly is stable. There is calcification in the region of the mitral annulus are are partially imaged median sternotomy wires. A prosthetic aortic valve is imaged on the public relations manager. LIVER, GALLBLADDER, AND BILIARY TREE: The liver is normal in contour and attenuation. There is mild scattered intrahepatic biliary ductal dilatation. The common bile duct measures approximately 1 cm in diameter with normal tapering in the pancreatic head. There is mild prominence of the distal pancreatic duct as well, measuring 4 to 5 mm in diameter. The gallbladder is unremarkable with no evidence of radiopaque gallstones, gallbladder wall thickening, or obvious pericholecystic inflammatory changes. PANCREAS: Unremarkable. SPLEEN: Unremarkable. 2 tiny nodularities along the left anterior abdominal periphery appear to have been present previously as well and are most suggestive of small splenules. ADRENAL GLANDS: Mild thickening of the adrenal glands bilaterally, stable. KIDNEYS AND URETERS: There is no hydronephrosis or nephrolithiasis. Oval hypodensities are visualized within both kidneys, the largest of which in the interpolar region of the left kidney appears to have slightly grown in the interval since 2009 and currently measures 2.5 cm. The course of both ureters appears unremarkable. BLADDER: The bladder is under distended and unremarkable. GASTROINTESTINAL TRACT: Numerous sigmoid diverticula are visualized. Scattered diverticula are also present throughout the remainder of the colon. No convincing surrounding inflammation. 2 tiny outpouchings in the region of the cecum are noted which may reflect small diverticula although a short appendix could be represented by either 1. Otherwise no definitive appendix is visualized. Loops of small bowel appear fairly normal in caliber. ABDOMINAL WALL: No significant hernia is appreciated. LYMPH NODES: Small mesenteric and retroperitoneal lymph nodes are visualized without lymphadenopathy. A stable small calcified gastrohepatic ligament node is redemonstrated. VASCULAR: There is heavy atherosclerotic calcification without aneurysmal dilatation of the aorta. PELVIC VISCERA: There is a left adnexal cyst measuring 1.6 cm, which has grown in the interval since 2009. There appears to have been hysterectomy. OSSEOUS STRUCTURES: No compression deformities are visualized. There is multilevel spondylosis and a mild levoconvex lumbar scoliosis. No acute fractures are evident IMPRESSION: There are numerous colonic diverticula particularly in the sigmoid region without definitive superimposed inflammation. Mild intrahepatic biliary ductal dilatation. Correlation with LFTs is suggested. The common bile duct and distal pancreatic duct are slightly prominent, but taper normally. Left adnexal cyst measuring 1.6 cm. This could be further characterized with pelvic ultrasound. Partially visualized right-sided pleural plaques, stable from a chest CT of 2012. Mild cardiomegaly, aortic valve replacement, and median sternotomy wires, stable. Moderate sized hiatal hernia. Lumbar spondylosis and levoconvex lumbar scoliosis without compression deformity. DICTATED BY: DONA ELIZALDE MD DATE/TIME DICTATED:10/08/16952 PIPE CONNECTOR:DAYAN DATE/TIME TRANSCRIBED:10/08/16952 CONFIDENTIAL, DO NOT COPY WITHOUT APPROPRIATE AUTHORIZATION. <Electronically signed in Other Vendor System> SIGNED BY: DONA ELIZALDE MD 10/08/16 1011 Physical Exam: General: Alert and oriented x3, no acute distress HEENT: sclera anicteric Cardiac: RRR, s1s2, stringer systolic murmur auscultated Pulmonary: CTA bilaterally Abdomen: Guarded exam, soft, tender to epigastric region and right upper quadrant Extremities: Moves all extremties, distal sensation intact. Motor 5/5 in plantar and dorsi flexion. Skin warm and well perfused. No peripheral edema. Bilateral calves soft and non-tender Assessment/Plan Assessment/Plan This is a 86 year old female with a past medical history significant for: HTN, diet controlled HLD, hypothyroid. Surgical history significant for Aortic Valve Replacement, appendectomy, and hysterectomy. She presents to hospital today with complaints of pain to abdomen, primarily in RUQ along with vomitting. She has an MRCP that is positive for choledocolithiasis as well as cholelithiasis with multiple stones, intra and extra hepatic ductal dilitation, and some mild pericholecystic edema suggestive of cholecystitis. -GI to see patient now, plan for ERCP -Post ERCP medicine as primary, continue abx per Dr. Davies -Surgery will closely follow Consult Acknowledgment - Thank you for your consult request. ANTHONY BOSWELL MD 10/09/16 0716: General Information and HPI Allergies/Medications Allergies: Coded Allergies: Penicillins (Intermediate, HIVES, ITCHING 10/08/16) Assessment/Plan Consult Acknowledgment - Thank you for your consult request. Attending MD Review Statement Attending Statement Attending MD Statement: discuss w/resident/PA/COUNTY ASSESSOR, reviewed images Attending Assessment/Plan: 86 yo woman presents with RUQ abdominal pain/tenderdess and imaging c/w cholelithiasis and choledocholithiasis. Now s/p ERCP with clearance of CBD. Unclear if acute cholecystitis present. Under normal circumstances, laparoscopic cholecystectomy should be performed prior to discharge. Will assess for adequate recovery from ERCP prior to surgery. Given her age, alternative would be to treat ERCP papillotomy as definitive procedure to prevent recurrent choledocholithiasis. However there exists a 20% risk of subsequent cholecystitis. Will d/w patient and plan surgery Tuesday pending clinical course and patient wishes.
--- NOTE | 2016-10-08 15:32 | NUR ---
ASSUMED CARE, PT NOT IN ROOM AND REMAINS AT GI.
--- NOTE | 2016-10-08 16:17 | NUR ---
PT STILL AT GI SUITE
--- NOTE | 2016-10-08 16:31 | NUR ---
PT REMAINS AT GI
--- NOTE | 2016-10-08 16:38 | NUR ---
TELEPHONE REPORT RECIEVED FROM GEN FROM GI, PER GEN PT WILL BE RETURNING TO ER AND THAT THEY REMOVED MULTIPLE STONES FROM PTS GALLBLADDER. WHEN QUESTIONED IF PT WILL BE ADMITTED TO SURGERY OR MEDICAL , GEN WAS UNSURE.
--- NOTE | 2016-10-08 16:49 | NUR ---
PT RETURNS TO ROOM # 2 FROM GI.
--- NOTE | 2016-10-08 16:58 | Proc Note ERCP ---
ERCP Procedure Procedure Date: 10/08/16 GI Procedure(s): ERCP with sphincterotomy/stone service crew supervisor: Pepe Davies M.D. ASA Classification: III Indications: Right upper quadrant pain, choledocholithiasis (MRCP) Instrument: gastroscope/duodenoscope Meds Received: ZOE Patient's Tolerance: good Complications: none Procedure: The patient signed informed consent, was brought to the operating room, turned into the prone position, and was medicated. Hurricaine pharyngeal spray was administered. Pulse oximetry, blood pressure and cardiac monitoring were performed continuously throughout the procedure. The Olympus high-definition gastroscope was inserted into the mouth and advanced to the stomach. A guidewire was then placed through the gastroscope into the antrum, and the gastroscope exchanged for a high-definition V duodenoscope. This was advanced to the duodenum. The esophagus had normal mucosa but was quite tortuous. There were no webs, strictures, or areas of friability, as had been previously described. The GE junction was at 30 cm at which site was a ring, and distal to which was a hiatal hernia. The proximal stomach was normal. Within the antrum there was erythema, in a spoke like pattern emanating from the pylorus. The pyloric channel, duodenal bulb and duodenal sweep were normal. The papilla was normal. The common bile duct was cannulated and opacified. The pancreatic duct was not cannulated/injected. The cholangiogram demonstrated dilatation of the common bile duct and common hepatic duct, with multiple filling defects. The hepatic ducts were normal. The cystic duct and gallbladder not opacified. A large, bloodless sphincterotomy was performed. Numerous (approximately 6) stones were removed with multiple sweeps of an extraction balloon, as well as thick bile and sludge/debris. 2 final occlusion cholangiograms/sweeps were normal. There appeared to be a small submucosal hematoma of the supra-papilla, above the apex of the cut, at the termination of the procedure. This did not impede extraction of an inflated balloon. 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
--- NOTE | 2016-10-08 17:00 | NUR ---
[facility] # [phone].
--- NOTE | 2016-10-08 17:11 | NUR ---
PT AWAKE AND ALERT BUT GROGGY, DENIES PAIN AT THIS TIME, O2 SAT 91 % ON 2L NC AT THIS TIME. FAMILY AT BEDSIDE .
--- NOTE | 2016-10-08 17:32 | NUR ---
PT ASSISTED ONTO BEDPAN, NOTED TO PASS ALOT OF GAS. PT REMAINS PAIN FREE. O2 SAT 92 % ON 2L VIA NC
--- NOTE | 2016-10-08 17:56 | RADIOLOGY REPORT ---
EXAMINATION: XR BILIARY AND PANCREATIC ERCP CLINICAL INFORMATION: Choledocholithiasis. COMPARISON: MRI of the abdomen and CT of the abdomen done today. TECHNIQUE: Fluoroscopic assistance was provided to Dr. Pepe Davies during the performance of an ERCP. The procedure was carried out in the outpatient department. FINDINGS: According to the technical notes, the common bile duct was cannulated and a sphincterotomy performed. Several balloon runs were obtained to remove common bile duct stones. The final spot film shows decompression of the intrahepatic biliary ducts. FLUOROSCOPY TIME: 6 minutes 28 seconds NUMBER OF IMAGES: 13 IMPRESSION: Status post sphincterotomy and removal of common bile duct stones. Please see the procedural notes for further details.
--- NOTE | 2016-10-08 18:09 | NUR ---
DAUGHTER DAMIÁN # [phone] PT REMAINS AWAKE AND ALERT BUT SLEEPY, DENIES PAIN. PTS DAUGHTER WENT HOME BUT STATES THAT ID THERE ARE ANY QUESTIONS SHE COULD BE CALLED AT THE ABOVE NUMBER. O2 SAT 92 % ON 2L VIA NC, DENIES FEELING SOB
--- NOTE | 2016-10-08 18:13 | NUR ---
PT GOING TO ROOM 209-2.
--- NOTE | 2016-10-08 18:20 | History & Physical ---
KRISS ACEVEDO,[facility] 10/08/16 528: General Information and HPI MD Statement: I have seen and personally examined SRAVANTHI PARIKH and documented this H&P. The patient is a 86 year old F who presented with a patient stated chief complaint of [right upper quadrant abdominal pain status post ERCP by GI earlier today]. Source of Information: patient, family, old records Exam Limitations: no limitations History of Present Illness: 86/F with PMHx of DMT2, HTN, GERD, hypothyroidism, CVA, aortic valve replacement , anxiety, Schatzki's ring s/p surgery correction, appendectomy, and hysterectomy who now presented with constant, 10/10, RUQ abdominal pain that radiated around to her right flank Pain started for the first time a week ago, patient did not seek medical attention and pain resolved spontaneous until yesterday when it starts again and became intolerable. Patient reported nausea a multiple episodes of nonbloody vomitus. She reported subjective fever. Patient also had multiple episodes of watery nonbloody diarrhea. Patient denies any similar pain in the past. Surgery and GI saw the patient while she was in the ED, she was found to have cholecystitis secondary to a stone. She was taking for ERCP and was treated with sphincterotomy/balloon extractio. ROS: She reported headache, fever, RUQ abdominal pain, watery nonbloody diarrhea , nausea and vomiting. She denies blurry vision, weakness, numbness, chest pain , shortness breath, palpitation, or cough. Allergies/Medications Allergies: Coded Allergies: Penicillins (Intermediate, HIVES, ITCHING 10/08/16) Home Med list Acetaminophen With Codeine (Acetaminophen-Cod #3 Tablet) 300 MG-30 MG TABLET 1 TAB PO DAILY PRN PAIN (Reported) Amlodipine Besylate/Benazepril (Amlodipine-Benazepril 10-40 MG) 10 MG-40 MG CAPSULE 1 CAP PO DAILY HEART (Reported) Clopidogrel Bisulfate (Clopidogrel) 75 MG TABLET 1 TAB PO DAILY BLOOD THINNER (Reported) Levothyroxine Sodium (Synthroid) 50 MCG TABLET 1 TAB PO DAILY AC THYROID ( Reported) Metoprolol Tartrate 25 MG TABLET 1 TAB PO BID HEART (Reported) Olanzapine 5 MG TABLET 0.5 TAB PO QPM SLEEP (Reported) Rabeprazole Sodium 20 MG TABLET.DR 1 TAB PO DAILY GI (Reported) Past History Travel History Traveled to [place] past 21 day No Medical History Cardiovascular: hypertension Gastrointestinal: schatzki ring Endocrine: hypothyroidism Pneumonia Vaccine: 07/04/09 Influenza Vaccine: 04/17/12 Surgical History Surgical History: appendectomy, hysterectomy, AVR Past Family/Social History Psychosocial History Where do you live? Home Services at Home: None Review of Systems Review of Systems Constitutional: Reports: see HPI, fever. Denies: chills. EENTM: Denies: blurred vision, hearing changes. Cardiovascular: Denies: chest pain, palpitations. Respiratory: Denies: cough, short of breath. GI: Reports: abdominal pain, diarrhea, nausea, vomiting. Denies: constipation, distention, bloody stool. Genitourinary: Denies: dysuria. Exam & Diagnostic Data Last 24 Hrs of Vital Signs/I&O Vital Signs Date Time Temp Pulse Resp B/P Pulse O2 O2 Flow FiO2 Ox Delivery Rate 10/08 2036 Nasal 2.0L Cannula 10/08 2036 99.5 75 20 163/76 95 Nasal 2.0L Cannula 10/08 1843 98.6 70 20 168/74 93 Nasal 2.0L Cannula 10/08 1810 98.1 68 18 170/74 92 Nasal 2.0L Cannula 10/08 1710 98.4 70 18 182/81 92 Nasal 3.0L Cannula 10/08 1650 98.5 69 20 200/90 92 Nasal 3.0L Cannula 10/08 1411 94 Nasal 3.0L Cannula 10/08 1410 99.0 64 22 178/75 87 Room Air 10/08 0946 98.3 10/08 0930 98.3 62 16 156/74 92 Room Air 10/08 0838 62 196/84 10/08 0819 98.3 10/08 0759 98.3 62 18 196/84 94 Room Air Intake & Output 10/08 1600 10/08 0800 04 0000 Intake Total 1100 Output Total 50 Balance 1050 Intake, IV 1100 Output, Urine 50 Physical Exam General Appearance Alert, Oriented X3, Cooperative, No Acute Distress Skin No Rashes HEENT Atraumatic, PERRLA, EOMI, Mucous Membr. moist/pink Cardiovascular Normal S1, Normal S2, systolic murmur Lungs Clear to Auscultation, Normal Air Movement Abdomen Normal Bowel Sounds, Soft, No Tenderness Neurological Normal Speech Extremities No Clubbing, No Cyanosis, No Edema Last 24 Hrs of Labs/Sushil: Laboratory Tests 10/08/16 1200: Lactic Acid 2.9 H 10/08/16 0913: Urine Color YEL, Urine Clarity CLEAR, Urine pH 6.5, Ur Specific [place] 1.020, Urine Protein TRACE H, Urine Ketones NEG, Urine Nitrite NEG, Urine Bilirubin NEG, Urine Urobilinogen 0.2, Ur Leukocyte Esterase NEG, Ur Microscopic SEDIMENT EXAMINED, Urine RBC 1-3, Ur Epithelial Cells FEW, Urine Bacteria FEW H, Hyaline Casts RARE H, Urine Hemoglobin SMALL H, Urine Glucose 250 H 10/08/16 0810: Anion Gap 13, Estimated GFR > 60, BUN/Creatinine Ratio 17.1, Glucose 183 H, Lactic Acid 2.1, Calcium 9.5, Total Bilirubin 0.7, Direct Bilirubin 0.5 H, AST 27, ALT 37, Alkaline Phosphatase 154 H, Troponin I < 0.01, Total Protein 7.6, Albumin 4.4, Globulin 3.2, Albumin/Globulin Ratio 1.4, Lipase 59, PT 11.2, INR 1.07, APTT 33, CBC w Diff NO MAN DIFF REQ, RBC 5.70 H, MCV 87.3, MCH 29.0, RDW 13.7, MPV 9.1, Gran % 89.5 H, Lymphocytes % 8.1 L, Monocytes % 2.3, Eosinophils % 0, Basophils % 0.1, Absolute Granulocytes 9.2 H, Absolute Lymphocytes 0.8 L, Absolute Monocytes 0.2, Absolute Eosinophils 0, Absolute Basophils 0, PUBS MCHC 33.2 Microbiology 10/08 1328 BLOOD: Blood Culture - RECD 10/08 1318 BLOOD: Blood Culture - RECD Assessment/Plan Assessment: 86/F who presented with right upper quadrant pain. CT abdomen and pelvis was done and reveals Multiple gallstones with the findings being suspicious for acute cholecystitis. She was been found to have evidence of cholecystitis and choledocholithiasis on an MRCP. She was then taking for ERCP when she was treated with sphincterotomy/balloon extraction, approximately 6 stones were removed. On admission examination has no RUQ tenderness. Lactic acid was elevated to 2.9. Her liver function test was abnormal. Urinalysis was benign #Cholecystitis secondary to obstructive stones ERCP was performed and obstruction was relieved, GI and surgery are on board. * Admit to general medicine * Continue Cipro 400 mg IV twice a day as per GI * Continue omeprazole 20 mg daily * Pain management with tramadol, oxycodone, and morphine as per pain scale * We will trend lactic acid. * We will follow-up liver enzymes * Patient is nothing by mouth for now, waiting for surgical recommendation. * If candidates will go for cholecystectomy. Waiting for surgical recommendation. #History of aortic valve replacement On admission patient EKG shows nonspecific abnormalities. It's not significantly different from the last EKG that we had in 2012. However given the long history of valve replacement, and abnormal baseline EKG is not bad idea to repeat troponin and EKG and I am. (First troponin was WNL) * We will repeat EKG and troponin in a.m. #Hypothyroidism * Continue levothyroxin 0.05 mg daily #Hypertension * Continue metoprolol 25 mg daily * Continue amlodipine 10 mg daily #DM * Finger stick * Insulin sliding scale Continue all other home medication Nothing by mouth for now DVT prophylaxis with Lovenox Full code As Ranked By This Provider Problem List: 1. Choledocholithiasis 2. Acute cholecystitis 3. Abdominal pain Core Measures/Miscellaneous Acute Coronary Syndrome ACS Diagnosis: No Cerebrovascular Accident CVA/TIA Diagnosis: No Congestive Heart Failure CHF Diagnosis: No Venous Thromboembolism VTE Risk Factors: Acute medical illness, Age > 40 No [facility] prophylaxis d/t: No contraindications No VTE Pharm Prophylaxis d/t: No contraindications VTE Diagnosis: No VTE Type: NONE VTE Confirmed by (Test): NONE Severe Sepsis Severe Sepsis Present: No Septic Shock Septic Shock Present: No Miscellaneous Documentation Attending Case Discussed With: JORGITO WIGGINS MD Primary Care Physician: TYLER CERDA MD Patient sees these Specialists GI and surgery Level of Patient Care: General Medicine ARRON SMITH MD 10/09/16 0630: Resident Review Statement Resident Statement: examined this patient, discussed with internet ecommerce specialist, agreed with internet ecommerce specialist, discussed with family, reviewed EMR data (avail), discussed with nursing , reviewed images, amended to note Other Findings: 81 yo female with pmh of HTN, DM, s/p AVR on plavix, CVA, anxiety, hypothyroidism presented with Rt. sided flank pain for 2 days associated with chills, nausea/vomiting, epigastric pain and diarrhea. Initial V/S: 98.1F SD 68 RR 18 SD 196/84 Sat 94% on RA, WBC 10.3, granulocytosis 89.5%, direct bilirubin 0.5, ALT/ALT 27/37, Alk phos 154, trop <0.01, EKG: LAD, AVL T inv, old LBBB, prolonged Qtc 516, MRCP: acute cholecystitis with choledocholithiasis with intrahepatic/extrahepatic biliary ductal dilatation. A/P 1. Acute cholecystitis & choledocholithiasis s/p ERCP: Pt had sphincterectomy/ balloon extraction by Dr. Davies, keep pt NPO for now, continue IV cipro 400mg bid per GI, c/w IV hydration, f/u LFT/lipase/blood culture, lactic acid became normal. f/u GI & general surgery. 2. HTN: c/w po metoprolol, norvasc as home dose 3. DM: not on home meds, check HbA1c, IV D5NS while NPO, novolog NPO s/s, accucheck 4. s/p AVR: hold plavix for now per general surgery for possible procedure. 5. Hypothyroidism: c/w home dose thyroxine 0.05mg daily SC lovenox, full code, pain pathway. FELICIANO ACEVEDO,[facility] 10/09/16 1317: Attending MD Review Statement Attending Statement Attending MD Statement: examined this patient, discuss w/resident/PA/COCKTAIL LOUNGE MANAGER, discussed with family, reviewed EMR data (avail)
--- NOTE | 2016-10-08 18:38 | NUR ---
REPORT TO JUS.
--- NOTE | 2016-10-08 18:44 | NUR ---
HOUSE STAFF DOWN STATES THAT THEY NEED EKG PRIOR TO GOING TO FLOOR DUE TO FIRST ONE SAID AFLUTTER THIS AM. QUESTION IF PT NEEDS TO GO TO TELE
--- NOTE | 2016-10-08 18:52 | NUR ---
TRANSPORT SENT AWAY.
--- NOTE | 2016-10-08 19:09 | NUR ---
PER [facility] ARRON PROVIDER PT IS OKAY TO GO TO [facility]. TRANSPORT BOOKED.
[2016-10-08 20:37] VITALS: BP 163/76
[2016-10-08 23:25] VITALS: BP 155/62
--- NOTE | 2016-10-08 23:59 | NUR ---
PATIENT ARRIVED TO FLOOR AT 0 ON 2L OF 02. PATIENT RESTING COMFORTABLY, DENIES ANY PAIN, NAUSUEA, OR VOMITING. LEFT FACIAL DROOP FROM CVA OVER 20 YEARS AGO. SKIN INTACT. PATIENT WEAK, ASSIST OF 1 WITH RW TO BEDSIDE COMMODE. LUNGS CLEAR. CALL GONSALES WITHIN REACH.
[2016-10-09 07:09] VITALS: BP 146/69
--- NOTE | 2016-10-09 08:07 | PN- General Surgery ---
See Addendum Subjective Subjective: Patient with mild pain in the right upper quadrant, no nausea, no vomiting. She feels as though she may have had a fever overnight, she had chills and was very cold overnight. She feels well after the ERCP procedure yesterday Objective Vital Signs and I&Os Vital Signs Date Time Temp Pulse Resp B/P Pulse O2 O2 Flow FiO2 Ox Delivery Rate 10/09 708 97.4 71 20 146/69 94 Nasal 2.0L Cannula 10/09 0000 Nasal 2.0L Cannula 10/08 2325 98.4 73 20 155/62 94 Nasal 2.0L Cannula 10/08 2223 163/76 10/08 203 Nasal 2.0L Cannula 10/08 203 99.5 75 20 163/76 95 Nasal 2.0L Cannula 10/08 1843 98.6 70 20 168/74 93 Nasal 2.0L Cannula 10/08 1810 98.1 68 18 170/74 92 Nasal 2.0L Cannula 10/08 1710 98.4 70 18 182/81 92 Nasal 3.0L Cannula 10/08 1650 98.5 69 20 200/90 92 Nasal 3.0L Cannula 10/08 1411 94 Nasal 3.0L Cannula 10/08 1410 99.0 64 22 178/75 87 Room Air 10/08 0946 98.3 10/08 0930 98.3 62 16 156/74 92 Room Air 10/08 0838 62 196/84 10/08 0819 98.3 Intake & Output 10/09 1600 10/09 0800 /08 0000 10/08 1600 10/08 0800 10/08 0000 Intake Total 1100 Output Total 550 100 50 Balance -550 -100 1050 Intake, IV 1100 Output, Urine 550 100 50 Patient 150 lb Weight Physical Exam: Well-developed well-nourished no apparent distress. HEENT: Atraumatic, extraocular motion intact, dry mucous membranes Neck: Supple, no lymphadenopathy Respiratory: No respiratory distress Abdomen: Keloid noted epigastric region, transverse. Mild to moderate tenderness in the right upper quadrant. The remainder of the abdomen is soft and nontender. Minimal soft distention. Extremities: No edema, calves nontender Neuro: Alert and oriented x3 Psych: Mood affect normal, normal memory normal judgment. Skin: Warm and dry, no rash on exposed skin Assessment/Plan Assessment/Plan 86-year-old female hospital day #2 status post ERCP with sphincterotomy due to choledocholithiasis -Continue IV antibiotics, Cipro per medicine and GI -Await a.m. labs this morning -Consider cholecystectomy in the next few days versus discharge home and schedule elective cholecystectomy. Unlikely surgery today however will keep nothing by mouth until discussion with Dr. Rosado after laboratory values are resulted today.
[2016-10-09 08:14] LABS: ABSOLUTE BASOPHIL COUNT 0 /CUMM (0.0-0.2); ABSOLUTE EOSINOPHIL COUNT 0 /CUMM (0.0-0.7); ABSOLUTE GRANULOCYTE CT 10.5 /CUMM (1.4-6.5); ABSOLUTE LYMPH COUNT 0.9 /CUMM (1.2-3.4); ABSOLUTE MONOCYTE COUNT 0.9 /CUMM (0.10-0.60); BASOPHIL % 0.1 % (0.0-2.0); EOSINOPHIL % 0 % (0-5); HEMATOCRIT 45.4 % (37-47); MEAN CORPUSCULAR HGB 28.9 PG (27.0-31.0); MEAN CORPUSCULAR VOLUME 87.6 FL (81.0-99.0); MEAN PLATELET VOLUME 9.1 FL (7.4-10.4); PLATELET COUNT 173 /CUMM (130-400); RBC DISTRIBUTION WIDTH 13.9 % (11.5-14.5); RED BLOOD CELL CT 5.19 /CUMM (4.20-5.40)
--- NOTE | 2016-10-09 09:20 | PN- Housestaff ---
Subjective Follow-up For: Cholecystitis status post ERCP Subjective: Afebrile, dynamically stable, saturating well on 2 L of oxygen. No acute overnight events reported. Diet was advanced after surgery decided no cholecystectomy, liver she will be nothing by mouth starting midnight for possible cholecystectomy tomorrow. She denies any active complain. Review of Systems Constitutional: Reports: no symptoms. Objective Last 24 Hrs of Vital Signs/I&O Vital Signs Date Time Temp Pulse Resp B/P Pulse O2 O2 Flow FiO2 Ox Delivery Rate 10/09 1152 150/76 10/09 1152 150/76 10/09 0709 97.4 71 20 146/69 94 Nasal 2.0L Cannula 10/09 0000 Nasal 2.0L Cannula 10/08 2325 98.4 73 20 155/62 94 Nasal 2.0L Cannula 10/08 2223 163/76 10/08 2037 Nasal 2.0L Cannula 10/08 203 99.5 75 20 163/76 95 Nasal 2.0L Cannula 10/08 1843 98.6 70 20 168/74 93 Nasal 2.0L Cannula 10/08 1810 98.1 68 18 170/74 92 Nasal 2.0L Cannula 10/08 1710 98.4 70 18 182/81 92 Nasal 3.0L Cannula 10/08 1650 98.5 69 20 200/90 92 Nasal 3.0L Cannula 10/08 1411 94 Nasal 3.0L Cannula 10/08 1410 99.0 64 22 178/75 87 Room Air Intake & Output 10/09 1600 10/09 0800 04 0000 Intake Total 400 Output Total 550 100 Balance -150 -100 Intake, IV 400 Output, Urine 550 100 Patient 68.039 kg Weight Physical Exam General Appearance: Alert, Oriented X3, Cooperative, No Acute Distress Skin: No Rashes, No Breakdown, No Significant Lesion HEENT: Atraumatic, PERRLA, EOMI, Dry mouth Cardiovascular: Regular Rate, Normal S1, Normal S2, systolic murmur Lungs: Clear to Auscultation, Normal Air Movement Abdomen: Soft, No Tenderness, increased bowel sounds Neurological: Normal Speech Extremities: No Clubbing, No Cyanosis, No Edema Current Medications: Current Medications Sig/Rajeev Start time Last Medication Dose Route Stop Time Status Admin Amlodipine Besylate 10 MG DAILY 10/09 1000 AC 10/09 PO 1152 Ceftriaxone Sodium 0 .STK-MED ONE 10/08 1313 DC .ROUTE Ciprofloxacin 400 MG Q12 10/08 2200 AC 10/09 Dextrose/Water 200 ML IV 1108 Ciprofloxacin 400 MG ONCE ONE 10/08 1500 DC Dextrose/Water 200 ML IV 10/08 1559 Dextrose/Sodium 1,000 ML Q20H 10/08 2345 AC 10/09 Chloride IV 10/09 1944 0011 Enoxaparin Sodium 40 MG DAILY 10/09 1000 AC 10/09 SC 1152 Glycerin 2 SPRAY Q2P PRN 10/09 0930 AC PO Influenza Virus 0.5 ML ONCE ONE 10/08 2100 DC Vaccine IM 10/08 2101 Insulin Human Regular 0 Q6 10/09 0823 AC SC Levothyroxine Sodium 0.05 MG DAILY AC 10/09 07 AC 10/09 PO 0444 Metoprolol Tartrate 25 MG BID 10/08 220 AC 10/09 PO 1152 Metronidazole 500 MG IQ8 10/09 1600 AC N/A 1 UNIT IV Metronidazole 500 MG ONCE ONE 10/08 124 IA 10/08 N/A 1 UNIT IV 10/08 1344 1424 Morphine Sulfate 2 MG Q6P PRN 10/09 1999 AC IV Olanzapine 2.5 MG QPM 10/08 220 AC 10/08 PO 2223 Omeprazole 20 MG DAILY AC 10/09 07 AC 10/09 PO 0444 Oxycodone HCl 5 MG Q6 PRN 10/09 1999 AC PO Patient Medication 1 UNIT ONE NR 10/09 1999 IA Teaching ED 10/08 2030 Patient Medication 1 UNIT ONE NR 10/09 1999 IA Teaching ED 10/08 2030 Patient Medication 1 UNIT ONE NR 10/09 1999 IA Teaching ED 10/08 2030 Sodium Chloride 500 ML BOLUS ONE 10/08 1245 IA 10/08 IV 10/08 1344 1315 Tramadol HCl 25 MG Q6 PRN 10/08 194 AC PO Last 24 Hrs of Lab/Sushil Results Last 24 Hrs of Labs/Mics: Laboratory Tests 10/09/16 0655: Anion Gap 10, Estimated GFR > 60, BUN/Creatinine Ratio 12.9, Total Bilirubin 1.2 , Direct Bilirubin 0.7 H, AST 45 H, ALT 55 H, Alkaline Phosphatase 113, Troponin I < 0.01, Total Protein 5.8 L, Albumin 3.2 L, Lipase 3096 H, CBC w Diff NO MAN DIFF REQ, RBC 5.19, MCV 87.6, MCH 28.9, RDW 13.9, MPV 9.1, Gran % 85.0 H, Lymphocytes % 7.4 L, Monocytes % 7.5, Eosinophils % 0, Basophils % 0.1 , Absolute Granulocytes 10.5 H, Absolute Lymphocytes 0.9 L, Absolute Monocytes 0.9 H, Absolute Eosinophils 0, Absolute Basophils 0, PUBS MCHC 33.0 10/08/16 2255: Troponin I < 0.01 10/08/16 2255: Lactic Acid 1.6 Microbiology 10/08 1328 BLOOD: Blood Culture - RES 10/08 1318 BLOOD: Blood Culture - RES Assessment/Plan Assessment: 86/F who presented with right upper quadrant pain. CT abdomen and pelvis was done and reveals Multiple gallstones with the findings being suspicious for acute cholecystitis. She was been found to have evidence of cholecystitis and choledocholithiasis on an MRCP. She was then taking for ERCP when she was treated with sphincterotomy/balloon extraction, approximately 6 stones were removed. On admission examination has no RUQ tenderness. Lactic acid was elevated to 2.9. Her liver function test was abnormal. Urinalysis was benign #Cholecystitis secondary to obstructive stones ERCP was performed and obstruction was relieved, GI and surgery are on board. Patient will be nothing by mouth starting midnight for possible cholecystectomy by surgery tomorrow. WBCs mildly elevated this morning. Over she is afebrile. Lactic acid trended. * Continue Cipro 400 mg IV twice a day as per GI * He will be started on Flagyl every 8 * Continue omeprazole 20 mg daily * Pain management with tramadol, oxycodone, and morphine as per pain scale * We will follow-up liver enzymes * Nothing by mouth midnight for cholecystectomy tomorrow #History of aortic valve replacement On admission patient EKG shows nonspecific abnormalities. It's not significantly different from the last EKG that we had in 2011. However given the long history of valve replacement, troponin and EKG trended * Nothing to do #Hypothyroidism * Continue levothyroxin 0.05 mg daily #Hypertension * Continue metoprolol 25 mg daily * Continue amlodipine 10 mg daily #DM * Finger stick * Insulin sliding scale Continue all other home medication Clear diet for now nothing by mouth starting midnight DVT prophylaxis with Lovenox Full code Problem List: 1. Acute cholecystitis 2. Choledocholithiasis 3. SCHIZOPHRENIFORM Pain Ratin Pain Location: LUQ abd Pain Goal: Remain pain free Pain Plan: see A&P Tomorrow's Labs & Rationales: cbc and bep
[2016-10-09 09:57] LABS: WHITE BLOOD CELL COUNT 12.4 /CUMM (4.8-10.8)
--- NOTE | 2016-10-09 13:08 | Admission Certification ---
Admission Certification Certification Statement - As attending physician, I certify that at the time of - admission, based on clinical presentation, severity of - symptoms, need for further diagnostic testing and - therapeutic interventions, and risk of adverse outcomes - without in-hospital treatment, in my clinical assessment, - this patient requires an acute hospital stay for a minimum - of two nights or longer. I have also considered psychsocial - factors such as support system, advanced age, financial - issues, cognitive issues, and failed out-patient treatments, - past re-admission history, safety of patient, and lack of - compliance as applicable. Specific rationale supporting this admission is: Choledocholithiasis and cholecystitis
--- NOTE | 2016-10-09 13:17 | PN- Att Addend ---
Attending Addendum Attending Brief Note Patient has minimal right upper quadrant tenderness General Appearance: Alert, No Acute Distress Skin: Grossly normal HEENT: PEERLA Neck: Supple, No JVD Cardiovascular: Regular Rate, Normal S1, Normal S2, No Murmurs Lungs: Clear to Auscultation, Normal Air Movement Abdomen: Right upper quadrant tenderness Neurological: Normal Speech, Strength at 5/5 X4 Ext, Cranial Nerves 3-12 NL, Reflexes 2+ Extremities: No Clubbing, No Cyanosis, No Edema Vascular: Normal Pulses Assessment 86-year-old with history of diabetes, hypertension, GERD, hypothyroidism, history of CVA and aortic valve replacement, presenting with right upper quadrant pain. MRCP confirmed mild cholecystitis with choledocholithiasis for which she underwent ERCP status post balloon dilatation and sphincterotomy. She is currently on IV antibiotics with overall improvement of symptoms. Plan will be for cholecystectomy in a.m. The blood cultures are negative and she doesn't appear to be septic since ERCP, she should be stable for cholecystectomy tomorrow. Plan Continue Cipro and start Flagyl Continue nothing by mouth Continue IV fluids Monitor for change in status Cholecystectomy tomorrow Continue other home medications including insulin subcutaneous DVT prophylaxis Current Medications Sig/Rajeev Start time Last Medication Dose Route Stop Time Status Admin Amlodipine Besylate 10 MG DAILY 10/09 1000 AC 10/09 PO 1152 Ciprofloxacin 400 MG Q12 10/080 AC 10/09 Dextrose/Water 200 ML IV 1108 Ciprofloxacin 400 MG ONCE ONE 10/08 1500 DC Dextrose/Water 200 ML IV 10/08 1559 Dextrose/Sodium 1,000 ML Q20H 10/08 2345 AC 10/09 Chloride IV 10/09 1944 0011 Enoxaparin Sodium 40 MG DAILY 10/09 1000 DC 10/09 SC 1152 Glycerin 2 SPRAY Q2P PRN 10/09 0930 AC PO Influenza Virus 0.5 ML ONCE ONE 10/08 2100 DC Vaccine IM 10/08 2101 Insulin Human Regular 0 Q6 10/09 0823 AC SC Levothyroxine Sodium 0.05 MG DAILY AC 10/09 0700 AC 10/09 PO 0444 Metoprolol Tartrate 25 MG BID 10/08 2200 AC 10/09 PO 1152 Metronidazole 500 MG IQ8 10/09 1600 AC N/A 1 UNIT IV Metronidazole 500 MG ONCE ONE 10/08 1245 DC 10/08 N/A 1 UNIT IV 10/08 1344 1424 Morphine Sulfate 2 MG Q6P PRN 10/09 1999 AC IV Olanzapine 2.5 MG QPM 10/08 2200 AC 10/08 PO 2223 Omeprazole 20 MG DAILY AC 10/09 07 AC 10/09 PO 0444 Oxycodone HCl 5 MG Q6 PRN 10/09 1999 AC PO Patient Medication 1 UNIT ONE NR 10/09 1999 [facility] ED 10/08 2029 Patient Medication 1 UNIT ONE NR 10/09 1999 [facility] ED 10/08 2029 Patient Medication 1 UNIT ONE NR 10/09 1999 [facility] ED 10/08 2029 Sodium Chloride 500 ML BOLUS ONE 10/08 1245 DC 10/08 IV 10/08 1344 1315 Tramadol HCl 25 MG Q6 PRN 10/08 194 AC PO Laboratory Tests 10/09 10/08 10/08 0655 2255 2255 Chemistry Sodium (137 - 145 mmol/L) 138 Potassium (3.5 - 5.1 mmol/L) 3.5 Chloride (98 - 107 mmol/L) 101 Carbon Dioxide (22 - 30 mmol/L) 27 Anion Gap (5 - 16) 10 BUN (7 - 17 mg/dL) 9 Creatinine (0.5 - 1.0 mg/dL) 0.7 Estimated GFR (>60 ml/min) > 60 BUN/Creatinine Ratio (7 - 25 %) 12.9 Lactic Acid (0.7 - 2.1 mmol/L) 1.6 Total Bilirubin (0.2 - 1.3 mg/dL) 1.2 Direct Bilirubin (< 0.4 mg/dL) 0.7 H AST (14 - 36 U/L) 45 H ALT (9 - 52 U/L) 55 H Alkaline Phosphatase (<127 U/L) 113 Troponin I (< 0.11 ng/ml) < 0.01 < 0.01 Total Protein (6.3 - 8.2 g/dL) 5.8 L Albumin (3.5 - 5.0 g/dL) 3.2 L Lipase (23 - 300 U/L) 3096 H Hematology CBC w Diff NO MAN DIFF REQ WBC (4.8 - 10.8 /CUMM) 12.4 H RBC (4.20 - 5.40 /CUMM) 5.19 Hgb (12.0 - 16.0 G/DL) 15.0 Hct (37 - 47 %) 45.4 MCV (81.0 - 99.0 FL) 87.6 MCH (27.0 - 31.0 PG) 28.9 RDW (11.5 - 14.5 %) 13.9 Plt Count (130 - 400 /CUMM) 173 MPV (7.4 - 10.4 FL) 9.1 Gran % (42.2 - 75.2 %) 85.0 H Lymphocytes % (20.5 - 51.1 %) 7.4 L Monocytes % (1.7 - 9.3 %) 7.5 Eosinophils % (0 - 5 %) 0 Basophils % (0.0 - 2.0 %) 0.1 Absolute Granulocytes (1.4 - 6.5 /CUMM) 10.5 H Absolute Lymphocytes (1.2 - 3.4 /CUMM) 0.9 L Absolute Monocytes (0.10 - 0.60 /CUMM) 0.9 H Absolute Eosinophils (0.0 - 0.7 /CUMM) 0 Absolute Basophils (0.0 - 0.2 /CUMM) 0 PUBS MCHC (33.0 - 37.0 G/DL) 33.0 Vital Signs Date Time Temp Pulse Resp B/P Pulse O2 O2 Flow FiO2 Ox Delivery Rate 10/09 1152 150/76 10/09 1152 150/76 10/09 0709 97.4 71 20 146/69 94 Nasal 2.0L Cannula 10/09 0000 Nasal 2.0L Cannula 10/08 2325 98.4 73 20 155/62 94 Nasal 2.0L Cannula 10/08 2223 163/76 04 203 Nasal 2.0L Cannula 10/08 2036 99.5 75 20 163/76 95 Nasal 2.0L Cannula 10/08 1843 98.6 70 20 168/74 93 Nasal 2.0L Cannula 10/08 1810 98.1 68 18 170/74 92 Nasal 2.0L Cannula 10/08 1710 98.4 70 18 182/81 92 Nasal 3.0L Cannula 10/08 1650 98.5 69 20 200/90 92 Nasal 3.0L Cannula 10/08 1411 94 Nasal 3.0L Cannula 10/08 1410 99.0 64 22 178/75 87 Room Air
[2016-10-09 14:28] VITALS: BP 141/59
[2016-10-09 21:30] VITALS: BP 152/60
[2016-10-10 05:37] VITALS: BP 142/58
[2016-10-10 08:44] LABS: ABSOLUTE BASOPHIL COUNT 0 /CUMM (0.0-0.2); ABSOLUTE EOSINOPHIL COUNT 0 /CUMM (0.0-0.7); ABSOLUTE GRANULOCYTE CT 6.3 /CUMM (1.4-6.5); ABSOLUTE LYMPH COUNT 0.8 /CUMM (1.2-3.4); ABSOLUTE MONOCYTE COUNT 0.7 /CUMM (0.10-0.60); BASOPHIL % 0 % (0.0-2.0); EOSINOPHIL % 0.6 % (0-5); GRANULOCYTE % 79.5 % (42.2-75.2); MEAN CORPUSCULAR HGB 28.9 PG (27.0-31.0); MEAN CORPUSCULAR HGB CONC 32.9 G/DL (33.0-37.0); MEAN CORPUSCULAR VOLUME 87.8 FL (81.0-99.0); MEAN PLATELET VOLUME 9.1 FL (7.4-10.4); PLATELET COUNT 146 /CUMM (130-400); RBC DISTRIBUTION WIDTH 13.8 % (11.5-14.5); RED BLOOD CELL CT 4.55 /CUMM (4.20-5.40); WHITE BLOOD CELL COUNT 7.9 /CUMM (4.8-10.8)
--- NOTE | 2016-10-10 08:49 | PN- Housestaff ---
Subjective Follow-up For: Acute cholecystitis Subjective: Patient was not in the room when visited. Currently in the room getting a laparoscopic cholecystectomy. Nursing reports no acute overnight event. Pt returned later in the evening and stated that she still has some abdominal pain. Review of Systems Constitutional: Reports: see HPI. Objective Last 24 Hrs of Vital Signs/I&O Vital Signs Date Time Temp Pulse Resp B/P Pulse O2 O2 Flow FiO2 Ox Delivery Rate 10/10 0537 98.4 64 18 142/58 93 Nasal 2.0L Cannula 10/10 0000 96 Nasal 2.0L Cannula 10/09 2130 99.1 68 18 152/60 93 Nasal 2.0L Cannula 10/09 2113 68 152/60 10/09 1600 Nasal 2.0L Cannula 10/09 1428 98.1 62 20 141/59 95 Nasal 2.0L Cannula Intake & Output 10/10 1600 10/10 0800 10/10 0000 Intake Total 600 680 Output Total 450 225 Balance 150 455 Intake, IV 600 200 Intake, Oral 480 Output, Urine 450 225 Physical Exam General Appearance: Alert, Oriented X3, Cooperative, Mild Distress Skin: No Significant Lesion Lymphatic: Cervical nl Cardiovascular: Regular Rate, Normal S1, Normal S2 Lungs: Clear to Auscultation, Normal Air Movement Abdomen: mild tenderness RUQ Assessment/Plan Assessment: 86/F who presented with right upper quadrant pain. CT abdomen and pelvis was done and reveals Multiple gallstones with the findings being suspicious for acute cholecystitis. She was been found to have evidence of cholecystitis and choledocholithiasis on an MRCP. She was then taking for ERCP when she was treated with sphincterotomy/balloon extraction, approximately 6 stones were removed. On admission examination has no RUQ tenderness. Lactic acid was elevated to 2.9. Her liver function test was abnormal. Urinalysis was benign #Cholecystitis secondary to obstructive stones * POD#0 LAP CHOLEY * Continue Cipro 400 mg IV twice a day as per GI * He will be started on Flagyl every 8 * Continue omeprazole 20 mg daily * Pain management with tramadol, oxycodone, and morphine as per pain scale * We will follow-up liver enzymes #History of aortic valve replacement On admission patient EKG shows nonspecific abnormalities. It's not significantly different from the last EKG that we had in 2011. However given the long history of valve replacement, troponin and EKG trended * Nothing to do #Hypothyroidism * Continue levothyroxin 0.05 mg daily #Hypertension * Continue metoprolol 25 mg daily * Continue amlodipine 10 mg daily #DM * Finger stick * Insulin sliding scale Continue all other home medication Clear diet for now nothing by mouth starting midnight DVT prophylaxis with Lovenox Full code Problem List: 1. Choledocholithiasis 2. Acute cholecystitis Pain Ratin Pain Location: ABDOMEN Pain Goal: Remain pain free Pain Plan: PER PAIN PATHWAY Tomorrow's Labs & Rationales: cbc bep
--- NOTE | 2016-10-10 10:37 | Operative Report ---
Operative/Inv Procedure Report Surgery Date: 10/10/16 Name of Procedure: Laparoscopic cholecystectomy Pre-Operative Diagnosis: 1. Choledocholithiasis 2. Cholelithiasis Post-Operative Diagnosis: 1. Same 2. Acute cholecystitis Estimated Blood Loss: less than 50ml Surgeon/Torch Straightener And Heater: Saul Rosado M.D./Yola MARSH Anesthesia: general endotracheal tube Specimens: Gallbladder Operative/Procedure Note Note: After informed consent patient is brought to the operating room and laid supine. General anesthesia was obtained and her abdomen was prepped and draped. The skin above the umbilicus infiltrated with local anesthesia and a curvilinear incision made sharply. We came down through the subcutaneous tissues bluntly and grasped the fascia with Laura's. A fasciotomy was created sharply and stay sutures placed. The peritoneum was entered sharply and a blunt Lomas port was placed. Pneumoperitoneum was achieved. There were omental adhesions which precluded visualization. I was able to find a window to guide the camera up to the right upper quadrant. The gallbladder was markedly distended with a thickened wall. 3, 5 mm ports were placed in the epigastrium and right upper quadrant after local anesthesia was instilled and under direct vision the camera. She's placed in reverse Trendelenburg and rotated towards the left. The gallbladder is identified. It was grasped at the dome and retracted towards the head. Infundibulum was then grasped. Adhesions to the undersurface were taken down with blunt and cautery dissection. We dissected both sides the triangle Calot peritoneal tissue with cautery. There was a node of Calot that was cautery way to expose the artery. The artery was medial and its normal anatomic position. It was cauterized medially to allow it to be mobilized away from the duct. [place] was cleared of areolar tissue with cautery. The arteries and duct were doubly ligated with clips. The cystic duct was significantly inflamed and thickened. We had upsized the epigastric port to a 12 mm port to allow use of 10 mm darren Cain clips to come across the cystic duct. Gallbladder is removed from the fossa electrocautery. It was placed in Endo Catch bag and cinched up. Right upper quadrant was and suction irrigated normal saline. Hemostasis achieved with cautery. The ports were then removed and the gallbladder delivered and passed off the field. The fascia was closed with 0 Vicryl suture. Skin incisions closed with 4-0 Vicryl. Steri-Strips and sterile dressing applied. Sponge and needle counts are correct. CC: FELICIANO ACEVEDO,JORGITO
--- NOTE | 2016-10-10 11:32 | PN- Att Addend ---
Attending Addendum Attending Brief Note unable to examine patient since she is in the OR Assessment 86-year-old with history of diabetes, hypertension, GERD, hypothyroidism, history of CVA and aortic valve replacement, presenting with right upper quadrant pain. MRCP confirmed mild cholecystitis with choledocholithiasis for which she underwent ERCP status post balloon dilatation and sphincterotomy. She is currently in OR for cholecystectomy. Plan Continue Cipro and start Flagyl Resume diet Continue other home medications including insulin subcutaneous DVT prophylaxis Current Medications Sig/Rajeev Start time Last Medication Dose Route Stop Time Status Admin Amlodipine Besylate 10 MG DAILY 10/09 1000 AC 10/09 PO 1152 Ciprofloxacin 400 MG Q12 10/08 2200 AC 10/09 Dextrose/Water 200 ML IV 2113 Dextrose/Sodium 1,000 ML Q13H 10/09 2330 AC 10/10 Chloride IV 10/10 1229 0012 Dextrose/Sodium 1,000 ML Q20H 10/08 2345 DC 10/09 Chloride IV 10/09 1944 0011 Enoxaparin Sodium 40 MG DAILY 10/09 1000 DC 10/09 SC 1152 Glycerin 2 SPRAY Q2P PRN 10/09 0930 AC PO Insulin Human Regular 2 UNITS .STK-MED ONE 10/10 0007 DC IV 10/10 0008 Insulin Human Regular 0 Q6 10/09 0823 AC 10/10 SC 0544 Levothyroxine Sodium 0.05 MG DAILY AC 10/09 07 AC 10/10 PO 0544 Metoprolol Tartrate 25 MG BID 10/08 2200 AC 10/09 PO 2113 Metronidazole 500 MG IQ8 10/09 1600 AC 10/10 N/A 1 UNIT IV 0011 Morphine Sulfate 2 MG Q6P PRN 10/09 1999 AC IV Olanzapine 2.5 MG QPM 10/08 220 AC 10/09 PO 2113 Omeprazole 20 MG DAILY AC 10/09 07 AC 10/10 PO 0544 Oxycodone HCl 5 MG Q6 PRN 10/09 1999 AC PO Tramadol HCl 25 MG Q6 PRN 10/08 1945 AC 10/09 PO 1543 Laboratory Tests 10/10 0635 Hematology CBC w Diff NO MAN DIFF REQ WBC (4.8 - 10.8 /CUMM) 7.9 RBC (4.20 - 5.40 /CUMM) 4.55 Hgb (12.0 - 16.0 G/DL) 13.1 Hct (37 - 47 %) 40.0 MCV (81.0 - 99.0 FL) 87.8 MCH (27.0 - 31.0 PG) 28.9 RDW (11.5 - 14.5 %) 13.8 Plt Count (130 - 400 /CUMM) 146 MPV (7.4 - 10.4 FL) 9.1 Gran % (42.2 - 75.2 %) 79.5 H Lymphocytes % (20.5 - 51.1 %) 10.7 L Monocytes % (1.7 - 9.3 %) 9.2 Eosinophils % (0 - 5 %) 0.6 Basophils % (0.0 - 2.0 %) 0 L Absolute Granulocytes (1.4 - 6.5 /CUMM) 6.3 Absolute Lymphocytes (1.2 - 3.4 /CUMM) 0.8 L Absolute Monocytes (0.10 - 0.60 /CUMM) 0.7 H Absolute Eosinophils (0.0 - 0.7 /CUMM) 0 Absolute Basophils (0.0 - 0.2 /CUMM) 0 PUBS MCHC (33.0 - 37.0 G/DL) 32.9 L Vital Signs Date Time Temp Pulse Resp B/P Pulse O2 O2 Flow FiO2 Ox Delivery Rate 10/10 0537 98.4 64 18 142/58 93 Nasal 2.0L Cannula 10/10 0000 96 Nasal 2.0L Cannula 10/09 2130 99.1 68 18 152/60 93 Nasal 2.0L Cannula 10/09 2113 68 152/60 10/09 1600 Nasal 2.0L Cannula 10/09 1428 98.1 62 20 141/59 95 Nasal 2.0L Cannula 10/09 1152 150/76 10/09 1152 150/76
[2016-10-10 12:30] VITALS: BP 162/70
--- NOTE | 2016-10-10 13:08 | PN- General Surgery ---
Subjective Subjective: Post op check s/p lap adeel Awake, alert No specific complaints at this time Denies nausea, pain tolerable Objective Vital Signs and I&Os Vital Signs Date Time Temp Pulse Resp B/P Pulse O2 O2 Flow FiO2 Ox Delivery Rate 10/10 0537 98.4 64 18 142/58 93 Nasal 2.0L Cannula 10/10 0000 96 Nasal 2.0L Cannula 10/09 2130 99.1 68 18 152/60 93 Nasal 2.0L Cannula 10/09 2113 68 152/60 10/09 1600 Nasal 2.0L Cannula 10/09 1428 98.1 62 20 141/59 95 Nasal 2.0L Cannula Intake & Output 10/10 1600 10/10 0800 10/10 0000 10/09 1600 10/09 0810/09 0000 Intake Total 600 680 500 400 Output Total 450 225 420 550 100 Balance 150 455 80 -150 -100 Intake, IV 600 200 400 400 Intake, Oral 480 100 Number 0 Bowel Movements Output, Urine 450 225 420 550 100 Patient 99 lb 0.01 oz 150 lb Weight Physical Exam: VSS, afebrile General: alert and oriented Chest: clear anteriorly Abd: soft, hypoactive bs Ext: warm, no edema Wounds: dressed, dry Assessment/Plan Assessment/Plan 86 yo female s/p lap adeel with multiple medical comorbidities clear liquids - advance as tolerated to regular diet this evening ambulate - will likely need PT Pain management DM - change insulin regimen after pt is tolerating po dc planning - will likely need rehab Anticoag - restart lovenox today, recommend waiting for post op day [address] Rosado
[2016-10-10 13:52] VITALS: BP 178/70
--- NOTE | 2016-10-10 19:48 | NUR ---
NSG NOTE LATE ENTRY: PATIENT ARRIVED BACK TO FLOOR FROM OR ACCOMPANIED BY DISTRIBUTION; A/O/ DROWSY/AROUSABLE; PATIENT ON 3LNC SATTING 92%; THIS RN INCREASED 02 TO 4LNC; VSS OTHERWISE; WILL CONT TO MONITOR
[2016-10-10 22:24] VITALS: BP 128/64
[2016-10-11 06:27] VITALS: BP 158/72
--- NOTE | 2016-10-11 07:31 | PN- Housestaff ---
Subjective Follow-up For: Cholecystitis status post ERCP and cholecystectomy Subjective: Afebrile, hemodynamically stable, saturating well on 4 L of oxygen. No acute overnight events reported. S/P cholecystectomy, POD#1, she is only complaining mild expected alee-incisional discomfort. She denies any other complain. Review of Systems Constitutional: Reports: see HPI. Objective Last 24 Hrs of Vital Signs/I&O Vital Signs Date Time Temp Pulse Resp B/P Pulse O2 O2 Flow FiO2 Ox Delivery Rate 10/11 836 64 158/72 10/11 0837 64 158/72 10/11 08 92 Nasal 4.0L Cannula 10/11 0627 98.0 64 20 158/72 92 10/11 0000 94 Nasal 4.0L Cannula 10/10 2224 98.5 68 18 128/64 92 Nasal 4.0L Cannula 10/10 2158 128/64 10/10 1600 92 Nasal 3.0L Cannula 10/10 1352 97.6 67 18 178/70 93 Nasal 4.5L Cannula 10/10 1230 98.0 60 18 162/70 92 Nasal 3.0L Cannula Intake & Output 10/11 1600 10/11 0800 10/11 0000 Intake Total 120 320 Output Total 400 250 Balance -280 70 Intake, IV 200 Intake, Oral 120 120 Output, Urine 400 250 Physical Exam General Appearance: Alert, Oriented X3, Cooperative, No Acute Distress Skin: No Rashes HEENT: Atraumatic, PERRLA, EOMI, Mucous Membr. moist/pink Cardiovascular: Regular Rate, Normal S1, Normal S2, No Murmurs Lungs: Clear to Auscultation, Normal Air Movement Abdomen: Normal Bowel Sounds, Soft, mild tendereness over the surgical incisions Neurological: Normal Speech Extremities: No Clubbing, No Cyanosis, No Edema Current Medications: Current Medications Sig/Rajeev Start time Last Medication Dose Route Stop Time Status Admin Amlodipine Besylate 10 MG DAILY 10/11 1000 AC 10/11 PO 0837 Ciprofloxacin 400 MG Q12 10/10 2199 DC 10/10 Dextrose/Water 200 ML IV 10/11 599 2158 Ciprofloxacin 400 MG Q12 10/080 DC 10/10 Dextrose/Water 200 ML IV 10/10 2159 1248 Dextrose/Sodium 1,000 ML Q13H 10/09 2330 DC 10/10 Chloride IV 10/10 1229 0012 Enoxaparin Sodium 40 MG DAILY 10/11 1000 AC 10/11 SC 0837 Glycerin 2 SPRAY Q2P PRN 10/10 1145 AC PO Insulin Human Regular 4 UNITS .STK-MED ONE 10/11 0013 DC IV 10/11 0014 Insulin Human Regular 0 Q6 10/10 1200 AC 10/11 SC 0618 Levothyroxine Sodium 0.05 MG DAILY AC 10/11 0700 AC 10/11 PO 0617 Metoprolol Tartrate 25 MG BID 10/10 2200 AC 10/11 PO 0837 Metronidazole 500 MG IQ8 10/10 1600 DC 10/10 N/A 1 UNIT IV 10/10 1700 1703 Metronidazole 500 MG IQ8 10/09 1600 DC 10/10 N/A 1 UNIT IV 10/10 1559 1702 Morphine Sulfate 2 MG Q6P PRN 10/10 1145 AC IV Olanzapine 2.5 MG QPM 10/10 2200 AC 10/10 PO 2158 Omeprazole 20 MG DAILY AC 10/11 0700 AC 10/11 PO 0617 Oxycodone HCl 5 MG Q6 PRN 10/10 1145 AC 10/11 PO 0749 Patient Medication 1 UNIT ONE NR 10/10 1315 DC Teaching ED 10/10 1330 Tramadol HCl 25 MG Q6 PRN 10/10 1145 AC PO Last 24 Hrs of Lab/Sushil Results Last 24 Hrs of Labs/Mics: Laboratory Tests 10/11/16 0630: CBC w Diff NO MAN DIFF REQ, RBC 4.56, MCV 88.2, MCH 28.8, RDW 14.4, MPV 8.9, Gran % 87.8 H, Lymphocytes % 5.1 L, Monocytes % 7.0, Eosinophils % 0, Basophils % 0.1, Absolute Granulocytes 7.9 H, Absolute Lymphocytes 0.5 L, Absolute Monocytes 0.6, Absolute Eosinophils 0, Absolute Basophils 0, PUBS MCHC 32.7 L Assessment/Plan Assessment: 86/F who presented with right upper quadrant pain. CT abdomen and pelvis was done and reveals Multiple gallstones with the findings being suspicious for acute cholecystitis. She was been found to have evidence of cholecystitis and choledocholithiasis on an MRCP. She was then taking for ERCP when she was treated with sphincterotomy/balloon extraction, approximately 6 stones were removed. On admission examination has no RUQ tenderness. Initially Lactic acid was elevated to 2.9. Her liver function test was abnormal. Urinalysis was benign. #Cholecystitis secondary to obstructive stones, cholecystectomy POD#1 * We will DC antibiotic * Continue omeprazole 20 mg daily * Pain management with tramadol, oxycodone, and morphine as per pain scale * We will follow-up liver enzymes * We will continue Lovenox for DVT prophylaxis, we will resume plavix on POD#2 as per surgery. * follow up with in 2 weeks #History of aortic valve replacement On admission patient EKG shows nonspecific abnormalities. It's not significantly different from the last EKG that we had in 2011. However given the long history of valve replacement, troponin and EKG were trended * Nothing to do #Hypothyroidism * Continue levothyroxin 0.05 mg daily #Hypertension * Continue metoprolol 25 mg daily * Continue amlodipine 10 mg daily #DM * Finger stick * Insulin sliding scale Continue all other home medication Clear diet for now nothing by mouth starting midnight DVT prophylaxis with Lovenox Full code Problem List: 1. Choledocholithiasis 2. Acute cholecystitis 3. Abdominal pain Pain Ratin Pain Location: alee inceisional Pain Goal: Remain pain free Pain Plan: Oxycodone Tomorrow's Labs & Rationales: See assessment and plan
[2016-10-11 07:47] LABS: ABSOLUTE BASOPHIL COUNT 0 /CUMM (0.0-0.2); ABSOLUTE EOSINOPHIL COUNT 0 /CUMM (0.0-0.7); ABSOLUTE GRANULOCYTE CT 7.9 /CUMM (1.4-6.5); ABSOLUTE LYMPH COUNT 0.5 /CUMM (1.2-3.4); ABSOLUTE MONOCYTE COUNT 0.6 /CUMM (0.10-0.60); BASOPHIL % 0.1 % (0.0-2.0); EOSINOPHIL % 0 % (0-5); HEMATOCRIT 40.2 % (37-47); MEAN CORPUSCULAR HGB 28.8 PG (27.0-31.0); MEAN CORPUSCULAR HGB CONC 32.7 G/DL (33.0-37.0); MEAN CORPUSCULAR VOLUME 88.2 FL (81.0-99.0); MEAN PLATELET VOLUME 8.9 FL (7.4-10.4); PLATELET COUNT 181 /CUMM (130-400); RBC DISTRIBUTION WIDTH 14.4 % (11.5-14.5); RED BLOOD CELL CT 4.56 /CUMM (4.20-5.40); WHITE BLOOD CELL COUNT 8.9 /CUMM (4.8-10.8)
--- NOTE | 2016-10-11 08:03 | PN- General Surgery ---
See Addendum Subjective Subjective: No complaints. Tolerating diet. Denies nausea. Expected alee-incisional discomfort. Objective Vital Signs and I&Os Vital Signs Date Time Temp Pulse Resp B/P Pulse O2 O2 Flow FiO2 Ox Delivery Rate 10/11 0627 98.0 64 20 158/72 92 10/11 0000 94 Nasal 4.0L Cannula 10/10 2224 98.5 68 18 128/64 92 Nasal 4.0L Cannula 10/10 2158 128/64 10/10 1600 92 Nasal 3.0L Cannula 10/10 1352 97.6 67 18 178/70 93 Nasal 4.5L Cannula 10/10 1230 98.0 60 18 162/70 92 Nasal 3.0L Cannula Intake & Output 10/11 1600 10/11 0800 10/11 0000 10/10 1600 10/10 0800 10/10 0000 Intake Total 310 076 4156 600 680 Output Total 400 250 150 450 225 Balance -280 70 970 150 455 Intake, IV 200 400 600 200 Intake, Oral 120 120 720 480 Number 0 Bowel Movements Output, Urine 400 250 150 450 225 Physical Exam: General - alert & oriented x 3. comfortable. no acute distress. Abdomen - soft. dressings c/d/i. expected alee-incisional tenderness. Assessment/Plan Assessment/Plan This 86 year old female PPD#3 s/p ercp, POD#1 s/p lap adeel for choledocholithiasis / acute cholecystitis tolerating diet pain control as needed lovenox - dvt ppx restart plavix on POD#2 management of co-morbidities as per primary team follow up with in 2 weeks call for surgical issues if needed
[2016-10-11 08:26] LABS: GRANULOCYTE % 87.8 % (42.2-75.2)
--- NOTE | 2016-10-11 08:26 | Patient Discharge Instructions ---
Discharge Instructions General Discharge Information You were seen/treated for: choledocholithiasis acute cholecystitis You had these procedures: ercp (10/08/16) laparoscopic cholecystectomy (10/10/16) Watch for these problems: fever>101.3, increased pain, redness/swelling/drainage No bath, but you may shower: Yes Other wound care: ok to remove bandaids. leave white steri strips in place until they fall off Special Instructions: Keep incisions clean & dry. Please visit your iron launder operator Dr Vilchis, and lung doctor Dr Lobo within 7 days of discharge. Please visit your primary care physician within 7 days of discharge. please follow up with 7 days after discharge Please return to emergency if symptoms worsen. Diet Continue normal diet: No Recommended Diet: regular diet, with chopped food and nectar thick liquid Activity Full Activity/No Limits: No Activity Self Limited: Yes Pounds, do NOT lift more than: 10 Activity Limited to: Weight bear as tolerated Other activity limits: no heavy lifting. no strenuous activity. Acute Coronary Syndrome Inclusion Criteria At DC or during hospital stay patient has or had the following: ACS DIAGNOSIS No Discharge Core Measures Meds if any: Prescribed or Continued at Discharge Meds if any: NOT Prescribed or Continued at Discharge Congestive Heart Failure Inclusion Criteria At DC or during hospital stay patient has or had the following: CHF DIAGNOSIS No Discharge Core Measures Meds if any: Prescribed or Continued at Discharge Meds if any: NOT Prescribed or Continued at Discharge Cerebrovascular accident Inclusion Criteria At DC or during hospital stay patient has or had the following: CVA/TIA Diagnosis No Discharge Core Measures Meds if any: Prescribed or Continued at Discharge Meds if any: NOT Prescribed or Continued at Discharge Venous thromboembolism Inclusion Criteria VTE Diagnosis No VTE Type NONE VTE Confirmed by (Test) NONE Discharge Core Measures - Per Current guidelines, there needs to be overlap - treatment for the first 5 days of Warfarin therapy. - If discharged on Warfarin prior to 5 days of - overlap therapy, the patient will need to be - assessed for post discharge needs including - *Post discharge parental anticoagulation - *Warfarin and/or parental anticoagulation education - *Follow up date to check INR post discharge At least 5 days overlap therapy as Inpatient No Meds if any: Prescribed or Continued at Discharge Note: Overlap Therapy is Warfarin and Anticoagulant Meds if any: NOT Prescribed or Continued at Discharge
--- NOTE | 2016-10-11 09:18 | PN- Att Addend ---
Attending Addendum Attending Brief Note Patient complains of significant pain at the surgical site. Otherwise she is tolerating by mouth diet. General Appearance: Alert, No Acute Distress Skin: Grossly normal HEENT: PEERLA Neck: Supple, No JVD Cardiovascular: Regular Rate, Normal S1, Normal S2, No Murmurs Lungs: Clear to Auscultation, Normal Air Movement Abdomen: Right quadrant pain Neurological: Normal Speech, Strength at 5/5 X4 Ext, Cranial Nerves 3-12 NL, Reflexes 2+ Extremities: No Clubbing, No Cyanosis, No Edema Vascular: Normal Pulses Assessment 86-year-old with history of diabetes, hypertension, GERD, hypothyroidism, history of CVA and aortic valve replacement, presenting with right upper quadrant pain. MRCP confirmed mild cholecystitis with choledocholithiasis for which she underwent ERCP status post balloon dilatation and sphincterotomy. She is currently status post cholecystectomy currently being followed off antibiotics. Plan Follow off antibiotics Continue pain meds PT evaluation Continue other home medications including insulin subcutaneous DVT prophylaxis Current Medications Sig/Rajeev Start time Last Medication Dose Route Stop Time Status Admin Amlodipine Besylate 10 MG DAILY 10/11 1000 AC 10/11 PO 0837 Amlodipine Besylate 10 MG DAILY 10/09 1000 DC 10/09 PO 1152 Ciprofloxacin 400 MG Q12 10/10 2200 DC 10/10 Dextrose/Water 200 ML IV 10/11 06 2158 Ciprofloxacin 400 MG Q12 10/08 2200 DC 10/10 Dextrose/Water 200 ML IV 10/10 2159 1248 Dextrose/Sodium 1,000 ML Q13H 10/09 2330 DC 10/10 Chloride IV 10/10 1229 0012 Enoxaparin Sodium 40 MG DAILY 10/11 1000 AC 10/11 SC 0837 Glycerin 2 SPRAY Q2P PRN 10/10 1145 AC PO Glycerin 2 SPRAY Q2P PRN 10/09 0930 DC PO Insulin Human Regular 4 UNITS .STK-MED ONE 10/11 0013 DC IV 10/11 0014 Insulin Human Regular 0 Q6 10/10 1200 AC 10/11 SC 0618 Insulin Human Regular 0 Q6 10/09 0823 DC 10/10 SC 0544 Levothyroxine Sodium 0.05 MG DAILY AC 10/11 0700 AC 10/11 PO 0617 Levothyroxine Sodium 0.05 MG DAILY AC 10/09 0700 DC 10/10 PO 0544 Metoprolol Tartrate 25 MG BID 10/10 2200 AC 10/11 PO 0837 Metoprolol Tartrate 25 MG BID 10/08 2200 DC 10/09 PO 2113 Metronidazole 500 MG IQ8 10/10 1600 DC 10/10 N/A 1 UNIT IV 10/10 1700 1703 Metronidazole 500 MG IQ8 10/09 1600 DC 10/10 N/A 1 UNIT IV 10/10 1559 1702 Morphine Sulfate 2 MG Q6P PRN 10/10 1145 AC IV Morphine Sulfate 2 MG Q6P PRN 10/08 2000 DC IV Olanzapine 2.5 MG QPM 10/10 2200 AC 10/10 PO 2158 Olanzapine 2.5 MG QPM 10/08 2200 DC 10/09 PO 2113 Omeprazole 20 MG DAILY AC 10/11 07 AC 10/11 PO 0617 Omeprazole 20 MG DAILY AC 10/09 0700 DC 10/10 PO 0544 Ondansetron HCl 4 MG .STK-MED ONE 10/10 1120 DC IM 10/10 1121 Oxycodone HCl 5 MG Q6 PRN 10/10 1145 AC 10/11 PO 0749 Oxycodone HCl 5 MG Q6 PRN 10/09 1999 DC PO Patient Medication 1 UNIT ONE NR 10/10 1315 DC Teaching ED 10/10 1330 Tramadol HCl 25 MG Q6 PRN 10/10 1145 AC PO Tramadol HCl 25 MG Q6 PRN 10/08 1945 DC 10/09 PO 1543 Laboratory Tests 10/11 0630 Hematology CBC w Diff NO MAN DIFF REQ WBC (4.8 - 10.8 /CUMM) 8.9 RBC (4.20 - 5.40 /CUMM) 4.56 Hgb (12.0 - 16.0 G/DL) 13.2 Hct (37 - 47 %) 40.2 MCV (81.0 - 99.0 FL) 88.2 MCH (27.0 - 31.0 PG) 28.8 RDW (11.5 - 14.5 %) 14.4 Plt Count (130 - 400 /CUMM) 181 MPV (7.4 - 10.4 FL) 8.9 Gran % (42.2 - 75.2 %) 87.8 H Lymphocytes % (20.5 - 51.1 %) 5.1 L Monocytes % (1.7 - 9.3 %) 7.0 Eosinophils % (0 - 5 %) 0 Basophils % (0.0 - 2.0 %) 0.1 Absolute Granulocytes (1.4 - 6.5 /CUMM) 7.9 H Absolute Lymphocytes (1.2 - 3.4 /CUMM) 0.5 L Absolute Monocytes (0.10 - 0.60 /CUMM) 0.6 Absolute Eosinophils (0.0 - 0.7 /CUMM) 0 Absolute Basophils (0.0 - 0.2 /CUMM) 0 PUBS MCHC (33.0 - 37.0 G/DL) 32.7 L Vital Signs Date Time Temp Pulse Resp B/P Pulse O2 O2 Flow FiO2 Ox Delivery Rate 10/11 0837 64 158/72 10/11 0837 64 158/72 10/11 0627 98.0 64 20 158/72 92 10/11 0000 94 Nasal 4.0L Cannula 10/10 2224 98.5 68 18 128/64 92 Nasal 4.0L Cannula 10/10 2158 128/64 10/10 1600 92 Nasal 3.0L Cannula 10/10 1352 97.6 67 18 178/70 93 Nasal 4.5L Cannula 10/10 1230 98.0 60 18 162/70 92 Nasal 3.0L Cannula
[2016-10-11 14:24] VITALS: BP 110/70
--- NOTE | 2016-10-11 15:30 | Discharge Summary ---
Visit Information Visit Dates Admission Date: 10/08/16 Discharge Date: 10/16/2016 Hospital Course Course Attending Physician: JORGITO WIGGINS MD Primary Care Physician: TYLER CERDA MD Hospital Course: 81 yo female with pmh of HTN, DM, s/p AVR on plavix, CVA, anxiety, hypothyroidism presented with Rt. sided flank pain for 2 days associated with chills, nausea/vomiting, epigastric pain and diarrhea. Initial V/S: 98.1F TN 68 RR 18 TN 196/84 Sat 94% on RA, WBC 10.3, granulocytosis 89.5%, direct bilirubin 0.5, ALT/ALT 27/37, Alk phos 154, trop <0.01, EKG: LAD, AVL T inv, old LBBB, prolonged Qtc 516, MRCP: acute cholecystitis with choledocholithiasis with intrahepatic/extrahepatic biliary ductal dilatation. Was admitted on [facility] floor and following issues were adressed. 1. Acute cholecystitis & choledocholithiasis s/p ERCP: Laparoscopic cholecystectomy was done on 10/10/16. Patient developed respiratory distress during the hospitalization after the surgeryand was transferred to ICU unit for one day, requiring high flow oxygen however CTA was negative for PE. Pulmonology consult was on board. A culture was positive for diphtheroids. She was put on chopped for solids and nectar for liquid diets due to abnormal modified barium swallow. Patient clinical status improved significantly and she was transferred to telemetry floor. her o2 requirements decreased and she was using incentive spirometry as well.patient is stable to be disharged to STR.patient needs to use incentive spirometry in rehab as well. 2. Cardiac bradycardia with atrial and ventricular ectopy. Cardiology was on board. Echocardiogram showed "Left ventricle not well visualized, grossly normal. No obvious regional wall motion abnormalities. Normal size left ventricle. Borderline normal left ventricular ejection fraction estimated at 50-55%. "We continued Norvasc and clopidogrel. patient should follow with in outpatient setting after discharge. Complications: none Allergies: Coded Allergies: Penicillins (Intermediate, HIVES, ITCHING 10/08/16) Significant Procedures: Operative/Inv Procedure Report Surgery Date: 10/10/16 Name of Procedure: Laparoscopic cholecystectomy Pre-Operative Diagnosis: 1. Choledocholithiasis 2. Cholelithiasis Post-Operative Diagnosis: 1. Same 2. Acute cholecystitis Estimated Blood Loss: less than 50ml Surgeon/General Service Technician: Saul Rosado M.D./Yola MARSH Anesthesia: general endotracheal tube Specimens: Gallbladder Operative/Procedure Note Note: After informed consent patient is brought to the operating room and laid supine. General anesthesia was obtained and her abdomen was prepped and draped. The skin above the umbilicus infiltrated with local anesthesia and a curvilinear incision made sharply. We came down through the subcutaneous tissues bluntly and grasped the fascia with Laura's. A fasciotomy was created sharply and stay sutures placed. The peritoneum was entered sharply and a blunt Lomas port was placed. Pneumoperitoneum was achieved. There were omental adhesions which precluded visualization. I was able to find a window to guide the camera up to the right upper quadrant. The gallbladder was markedly distended with a thickened wall. 3, 5 mm ports were placed in the epigastrium and right upper quadrant after local anesthesia was instilled and under direct vision the camera. She's placed in reverse Trendelenburg and rotated towards the left. The gallbladder is identified. It was grasped at the dome and retracted towards the head. Infundibulum was then grasped. Adhesions to the undersurface were taken down with blunt and cautery dissection. We dissected both sides the triangle Calot peritoneal tissue with cautery. There was a node of Calot that was cautery way to expose the artery. The artery was medial and its normal anatomic position. It was cauterized medially to allow it to be mobilized away from the duct. Cherry Log was cleared of areolar tissue with cautery. The arteries and duct were doubly ligated with clips. The cystic duct was significantly inflamed and thickened. We had upsized the epigastric port to a 12 mm port to allow use of 10 mm he Melotte clips to come across the cystic duct. Gallbladder is removed from the fossa electrocautery. It was placed in Endo Catch bag and cinched up. Right upper quadrant was and suction irrigated normal saline. Hemostasis achieved with cautery. The ports were then removed and the gallbladder delivered and passed off the field. The fascia was closed with 0 Vicryl suture. Skin incisions closed with 4-0 Vicryl. Steri-Strips and sterile dressing applied. Sponge and needle counts are correct. CC: [facility] Pertinent Lab Results: SERVICE DATE: 10/08/16- EXAM TYPE: RAD - XRY-ERCP BILIARY & PANCREATIC EXAMINATION: XR BILIARY AND PANCREATIC ERCP CLINICAL INFORMATION: Choledocholithiasis. COMPARISON: MRI of the abdomen and CT of the abdomen done today. TECHNIQUE: Fluoroscopic assistance was provided to Dr. Pepe Davies during the performance of an ERCP. The procedure was carried out in the outpatient department. FINDINGS: According to the technical notes, the common bile duct was cannulated and a sphincterotomy performed. Several balloon runs were obtained to remove common bile duct stones. The final spot film shows decompression of the intrahepatic biliary ducts. FLUOROSCOPY TIME: 6 minutes 28 seconds NUMBER OF IMAGES: 13 IMPRESSION: Status post sphincterotomy and removal of common bile duct stones. Please see the procedural notes for further details. PATIENT: SRAVANTHI PARIKH PRESENT AGE: 86 PATIENT ACCOUNT NO: [id number] : [birth year] LOCATION: [facility] ORDERING PHYSICIAN: ADAM JIANG MD SERVICE DATE: 10/14/16 EXAM TYPE: RAD - XRY-PORTABLE CHEST XRAY EXAMINATION: XR PORTABLE CHEST CLINICAL INFORMATION: Worsening breathing. Increased oxygen requirement. History of aortic valve replacement. COMPARISON: CXR from 10/13/2016. TECHNIQUE: Portable AP view of the chest was obtained. FINDINGS: Patient is rotated to the left. Lungs are hypoinflated and without acute edema. Linear opacities of discoid atelectasis in each lung. Also, mild atelectasis is present in the medial left lower lobe adjacent to the hiatal hernia. Aortic valve is replaced. Mild cardiomegaly. Atherosclerotic calcification of the aorta. Bone density appears diffusely decreased. Dextroscoliosis of thoracic spine. Mild osteoarthritis of glenohumeral joints. IMPRESSION: 1. Cardiomegaly without acute pulmonary edema. 2. Pulmonary hypoinflation and persistent mild atelectasis in each lung. No acute pulmonary findings compared to the prior radiograph. DICTATED BY: RUPALI ARAYA MD DATE/TIME DICTATED:10/14/16803 OPERATOR HELPER:DAYAN DATE/TIME TRANSCRIBED:10/14/16803 CONFIDENTIAL, DO NOT COPY WITHOUT APPROPRIATE AUTHORIZATION. <Electronically signed in Other Vendor System> SIGNED BY: RUPALI ARAYA MD 10/14/16811 PATIENT: SRAVANTHI PARIKH PRESENT AGE: 86 PATIENT ACCOUNT NO: [id number] : [birth year] LOCATION: [facility] ORDERING PHYSICIAN: ADAM JIANG MD SERVICE DATE: 10/13/16 EXAM TYPE: RAD - XRY-MODIFIED BARIUM SWALLOW EXAMINATION: XR MODIFIED BARIUM SWALLOW CLINICAL INFORMATION: Difficulty breathing. Evidence of hiatal hernia on CT scan. Evaluate for possible aspiration. COMPARISON: CTA of the chest dated 10/12/2016. TECHNIQUE: A modified barium swallow was performed with speech pathologist in attendance. Pur?e, nectar thick, thin, bread, and cracker consistencies were given to the patient and the swallowing mechanism was observed fluoroscopically with 10 spot films taken using the last image hold feature. FLUOROSCOPY TIME: 1 minute 40 seconds. FINDINGS: With all consistencies, the oropharyngeal phase of swallowing is normal with no laryngeal or nasopharyngeal aspiration seen. There is premature spillage of contrast into the piriform sinuses with all consistencies and undercoating of the epiglottis with all consistencies. With thin liquid barium, transient penetration of contrast to above the level of the vocal cords is seen on 2 or 3 occasions without eliciting a cough reflex. IMPRESSION: 1. Transient penetration of contrast to above the level of the vocal cords is seen with thin liquid barium without eliciting a cough reflex. 2. Undercoating of the epiglottis seen with all other consistencies. 3. Mildly disordered oropharyngeal phase of swallowing with premature spillage of contrast into the piriform sinuses. 4. Speech pathologist assessment issued separately. DICTATED BY: ÁNGELA ZAFAR MD DATE/TIME DICTATED:10/13/161738 OPERATOR HELPER:DAYAN DATE/TIME TRANSCRIBED:10/13/161738 CONFIDENTIAL, DO NOT COPY WITHOUT APPROPRIATE AUTHORIZATION. <Electronically signed in Other Vendor System> SIGNED BY: ÁNGELA ZAFAR MD [id number] ======== PATIENT: SRAVANTHI PARIKH PRESENT AGE: 86 PATIENT ACCOUNT NO: [id number] : [birth year] LOCATION: [facility] ORDERING PHYSICIAN: CASEY CLINE MD SERVICE DATE: 10/13/16 EXAM TYPE: CARD - ECHOCARDIOGRAM SRAVANTHI PARIKH Age: 86 : 1930 Gender: F Exam Date: 10/13/2016 11:10 Exam Location: [facility] Ht (in): 60 Wt (lb): 150 BSA: 1.72 BP: 131 / 59 Ordering Physician: CASEY CLINE MD Referring Physician: CASEY CLINE MD Technologist: Dolores Villegas Room Number: 111 Indications: ARRHYTHMIAS Rhythm: Sinus Technical Quality: Poor, Technically difficult study FINDINGS Left Ventricle Left ventricle not well visualized, grossly normal. No obvious regional wall motion abnormalities. Normal size left ventricle. Borderline normal left ventricular ejection fraction estimated at 50-55%. Right Ventricle Right ventricle not well visualized, grossly normal. Right Atrium Normal right atrial size. Left Atrium Moderate left atrial dilatation. Mitral Valve Mild thickening/calcification of the anterior mitral valve leaflet. Moderate mitral annular calcification. [id number] mitral regurgitation. 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 The valve was not well visualized anatomically Tricuspid Valve Tricuspid valve not well visualized. Ccel-bj-xomkewns tricuspid regurgitation. Right ventricular systolic pressure estimated at 40 mmHg. Pulmonic Valve Pulmonic valve not well visualized. Pericardium No pericardial effusion. Great Vessels Aortic root and proximal ascending aorta not well visualized. CONCLUSIONS 1. This was a technically difficult and limited examination due to the patient's body habitus. 2. 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 The valve was not well visualized anatomically. The peak gradient across the aortic outflow tract is 13 mmHg. 3. Thickening and calcification of the mitral leaflets is present with moderate anular calcification and mild to moderate mitral insufficiency with moderate left atrial enlargement. 4. There is no obvious pericardial fluid present. 5. The left ventricular chamber size and systolic function appear normal. Accurate wall motion assessment was not possible. Mild diastolic dysfunction is present 6. The right heart structures were not optimally visualized. Mild to moderate tricuspid insufficiency is present with no evidence of significant pulmonary hypertension. Tiffany Guy M.D. (Electronically Signed) Final Date: 13 October 2016 17:18 MEASUREMENTS (Male / Female) Normal Values 2D ECHO LV Diastolic Diameter PLAX 2.6 cm 4.2 - 5.9 / 3.9 - 5.3 cm LV Systolic Diameter PLAX 2.2 cm 2.1 - 4.0 cm LV Fractional Shortening PLAX 15.4 % 25 - 46 % LV Ejection Fraction 2D Teich 34.1 % IVS Diastolic Thickness 0.9 cm LVPW Diastolic Thickness 0.9 cm LV Relative Wall Thickness 0.7 RV Internal Dim ED PLAX 2.5 cm 1.9 - 3.8 cm LVOT Diameter 1.7 cm LA Systolic Diameter LX 4.8 cm 3.0 - 4.0 / 2.7 - 3.8 cm LA Volume 51.0 cm 18 - 58 / 22 - 52 cm DOPPLER AV Peak Velocity 178.0 cm/s AV Peak Gradient 12.7 mmHg AV Mean Velocity 130.0 cm/s AV Mean Gradient 8.0 mmHg AV Velocity Time Integral 33.3 cm LVOT Peak Velocity 106.0 cm/s LVOT Peak Gradient 4.5 mmHg LVOT Mean Velocity 76.2 cm/s LVOT Mean Gradient 3.0 mmHg LVOT Velocity Time Integral 21.2 cm LVOT Stroke Volume 48.1 cm AV Area Cont Eq vti 1.4 cm AV Area Cont Eq pk 1.4 cm MV Peak Velocity 145.0 cm/s MV Peak Gradient 8.4 mmHg MV Mean Velocity 89.3 cm/s MV Mean Gradient 4.0 mmHg Mitral E Point Velocity 87.4 cm/s Mitral A Point Velocity 115.0 cm/s Mitral E to A Ratio 0.8 MV PHT Velocity 128.0 cm/s MV Deceleration Rock 449.0 cm/s MV Pressure Half Time 85.5 ms MV Area PHT 2.6 cm MV Deceleration Time 338.0 ms MR Peak Velocity 567.0 cm/s MR Peak Gradient 128.6 mmHg TR Peak Velocity 260.0 cm/s TR Peak Gradient 27.0 mmHg Right Atrial Pressure 10.0 mmHg Pulmonary Artery Systolic Pressu 37.0 mmHg Right Ventricular Systolic Press 37.0 mmHg LV E' Lateral Velocity 6.0 cm/s Mitral E to LV E' Lateral Ratio 14.5 LV E' Septal Velocity 6.3 cm/s Mitral E to LV E' Septal Ratio 13.8 DICTATED BY: Patti GUY MD DATE/TIME DICTATED:10/13/161717 OPERATOR HELPER:DAYAN DATE/TIME TRANSCRIBED:10/13/161717 CONFIDENTIAL, DO NOT COPY WITHOUT APPROPRIATE AUTHORIZATION. <Electronically signed in Other Vendor System> SIGNED BY: Patti GUY MD 10/13/161718 PATIENT: SRAVANTHI PARIKH PRESENT AGE: 86 PATIENT ACCOUNT NO: [id number] : [birth year] LOCATION: [facility] ORDERING PHYSICIAN: CATHERINE LEON MD SERVICE DATE: 10/12/16 EXAM TYPE: CAT - CTA CHEST-PULMONARY EMBOLISM EXAMINATION: CT ANGIOGRAM OF THE CHEST WITH AND WITHOUT CONTRAST (CT PULMONARY ANGIOGRAM FOR PE) CLINICAL INFORMATION: Acute onset hypoxia, progressive mentation change. COMPARISON: Portable chest 10/12/2016 TECHNIQUE: Prior to contrast administration, noncontrast localization images were obtained. Subsequently, multidetector volumetric imaging was performed from the thoracic inlet to below the diaphragms following the administration of 60 mL Optiray 350 intravenous contrast. No contrast reaction reported. Sagittal, coronal, and MIP oblique sagittal reformatted images were obtained on the CT workstation, uploaded to PACS, and reviewed. Total exam dose-length product 420.57 mGy-cm. FINDINGS: QUALITY OF STUDY/CONTRAST BOLUS: Satisfactory PULMONARY ARTERIES: No central or segmental pulmonary emboli. THORACIC AORTA: Atherosclerotic vascular wall calcifications of aorta. Status post aortic valve replacement. There is vascular calcification of coronary arteries. LUNG: Minimal dependent atelectasis at lung bases bilateral. Lungs are otherwise clear. The central bronchial airways are open. PLEURA: Focal pleural thickening anterior right hemithorax without calcification. MEDIASTINUM: Normal heart size. No pericardial effusion. No hilar or mediastinal lymphadenopathy. No evidence of septal bowing or right heart strain. Large hiatal hernia. CHEST WALL/AXILLA: No axillary or internal mammary lymphadenopathy. OSSEOUS STRUCTURES: Status post median sternotomy. Kyphosis of dorsal spine with multilevel degenerative spondylosis. UPPER ABDOMEN: Unremarkable. No reflux of contrast into the hepatic veins to suggest elevated right heart pressures. IMPRESSION: 1. No evidence of pulmonary embolism. No acute change of the chest. VTE: negative DICTATED BY: ABBE VIRK MD DATE/TIME DICTATED:10/12/162030 OPERATOR HELPER:DAYAN DATE/TIME TRANSCRIBED:10/12/162030 CONFIDENTIAL, DO NOT COPY WITHOUT APPROPRIATE AUTHORIZATION. <Electronically signed in Other Vendor System> SIGNED BY: ABBE VIRK MD 10/12/162039 PATIENT: SRAVANTHI PARIKH PRESENT AGE: 86 PATIENT ACCOUNT NO: [id number] : [birth year] LOCATION: [facility] ORDERING PHYSICIAN: CECILIA GROSSMAN MD SERVICE DATE: 10/08/16 EXAM TYPE: MRI - MRI-ABD W/O-W LILA EXAMINATION: MR ABDOMEN WITHOUT AND WITH CONTRAST CLINICAL INFORMATION: Evaluate for mass or biliary stones COMPARISON: CT abdomen and pelvis most recent prior dated 10/08/2016 TECHNIQUE: MRI of the abdomen before and after the IV administration of 14 mL of Magnevist was obtained using routine sequences. FINDINGS: Images are partly degraded by patient motion. Lung bases demonstrate dependent atelectatic changes. GALLBLADDER AND BILIARY TREE: Multiple small gallstones and sludge noted in the gallbladder extending into the gallbladder neck and cystic duct. (Series 8 image 28-51). There is mild pericholecystic edema especially evident at the level of the gallbladder neck. No gross evidence of gallbladder wall thickness. Multiple small calculi and sludge also noted within the CBD (series 8 image 32) . CBD measures approximately 1 to 1.1 cm in maximal diameter. Although it tapers the study, there is persistent presence of small amount of sludge and tiny stones. Intrahepatic biliary ductal dilatation. Distended gallbladder with mild enhancement of the gallbladder wall. LIVER: No evidence of hepatic steatosis. Post gadolinium images are degraded by patient motion. No gross evidence of abnormal enhancement. Intrahepatic biliary ductal dilatation. PANCREAS: Mild diffuse atrophy. There is pancreatic ductal dilatation especially evident at the level of the pancreatic head measuring approximately 0.6 cm (series 8 image 38). No gross evidence of peripancreatic fluid or edema. Post gadolinium images also degraded by patient motion do not demonstrate any gross evidence of abnormal enhancement. Spleen: Unremarkable. Adrenal glands: Within normal limits. Kidneys: T1 hypointense and T2 hyperintense dominant cystic structure noted in the mid outer aspect left kidney (series 3 image 22) measuring approximately 2.6 x 2.2 cm. There is suggestion of a debris level in the dependent portion of the cyst range disease series 3 image 22-23). Although the evaluation is significantly degraded post gadolinium sequences, there is subtle suggestion of enhancement along the posterior lateral aspect of the complex cyst (series 13-15 image 32/52 and series 17 image 31). Smaller T2 hyperintense cystic foci noted in bilateral renal cortices varying in size from 0.2 cm to 0.5 cm. GI TRACT: Moderate to large hiatal hernia. Visualized bowel loops are otherwise unremarkable. LYMPHOVASCULAR STRUCTURES: Evaluation of the portal venous system is limited due to motion degradation. No gross abnormality. Aorta is within normal limits in size. No gross evidence of lymphadenopathy. Additional findings: T2 hyperintense cystic foci noted in the regions of bilateral ovary/adnexa (series 2 image 10). These can be further assessed with nonemergent pelvic ultrasound. OSSEOUS STRUCTURES: Moderate scoliosis. No acute or suspicious osseous abnormality. IMPRESSION: 1. Multiple gallstones extending to the neck of the gallbladder and possibly cystic duct. Mild enhancement of the gallbladder wall with mild pericholecystic edema . Findings are suspicious for acute cholecystitis. 2. Choledocholithiasis with intrahepatic and extrahepatic biliary ductal dilatation . 3. Pancreatic ductal dilatation. No definite evidence of pancreatitis. No suspicious mass identified in the pancreas. Evaluation however is limited on the postgadolinium sequences due to motion degradation. 4. Complex cystic lesion lateral aspect mid left kidney. Urologic correlation recommended. 5. Bilateral ovarian cysts. Monitoring with nonemergent follow-up pelvic ultrasound recommended. Findings discussed with Dr. Grossman at 12:40 PM on 10/08/2016. DICTATED BY: LIZETH FAGAN MD DATE/TIME DICTATED:10/08/161228 OPERATOR HELPER:DAYAN DATE/TIME TRANSCRIBED:10/08/161228 CONFIDENTIAL, DO NOT COPY WITHOUT APPROPRIATE AUTHORIZATION. <Electronically signed in Other Vendor System> SIGNED BY: LIZETH FAGAN MD 10/08/16 1308 Disposition Summary Disposition Principal Diagnosis: Cholecystitis secondary to obstructive stones, cholecystectomy Additional Diagnosis: Hypertension Discharge Disposition: SNF Discharge Instructions General Discharge Information Code Status: Full Code Patient's Diet: regular diet no added salt chopped for soild and nectar for fluids Patient's Activity: as needed with assistance Follow-Up Instructions/Appts: Keep incisions clean & dry. Please visit your model technician Dr Guy, and lung doctor Dr Lobo within 7 days of discharge. Please visit your primary care physician within 7 days of discharge. please follow up with 7 days after discharge Please return to emergency if symptoms worsen. Medications at Discharge Discharge Medications: Continue taking these medications: Clopidogrel Bisulfate (Clopidogrel) 75 MG TABLET 1 Tablet ORAL DAILY Qty = 90 Comments: Last Taken: 10/16/16 Time: 9:30 AM Levothyroxine Sodium (Synthroid) 50 MCG TABLET 1 Tablet ORAL DAILY BEFORE BREAKFAST Qty = 90 Comments: Last Taken: 10/16/16 Time: 6:30 AM Amlodipine Besylate/Benazepril (Amlodipine-Benazepril 10-40 MG) 10 MG-40 MG CAPSULE 1 Capsule ORAL DAILY Qty = 90 Comments: Last Taken: 10/16/16 Time: 9:30 AM Metoprolol Tartrate (Metoprolol Tartrate) 25 MG TABLET 1 Tablet ORAL TWICE DAILY Qty = 180 Comments: Last Taken: 10/16/16 Time: 9:30 AM Rabeprazole Sodium (Rabeprazole Sodium) 20 MG TABLET.DR 1 Tablet ORAL DAILY Qty = 90 Comments: NOT GIVEN IN HOSPITAL Acetaminophen With Codeine (Acetaminophen-Cod #3 Tablet) 300 MG-30 MG TABLET 1 Tablet ORAL DAILY as needed for PAIN Qty = 30 Comments: NOT GIVEN IN HOSPITAL Olanzapine (Olanzapine) 5 MG TABLET 0.5 Tablet ORAL Every night Qty = 30 Comments: Last Taken: 10/15/16 Time: 9:30 PM Copies To: ZAIDA ACEVEDO,TYLER Torrez; Patti GUY MD; ELBERT ACEVEDO,SAUL Finney; KANDY ACEVEDO,BENJI Attending MD Review Statement Documenting Attending: JORGITO WIGGINS MD
[2016-10-11 23:26] VITALS: BP 142/65
--- NOTE | 2016-10-12 00:48 | NUR ---
ALERT AND ORIENTED X 3. VITAL SIGNS STABLE. DENIES CHEST PAIN. + PULSES MEDICATION GIVEN FOR DISCOMFORT. DSGS ARE C/D/I. PATIENT RESTING AT THIS TIME. WILL CONTINUE TO MONITOR
[2016-10-12 06:19] VITALS: BP 110/60
--- NOTE | 2016-10-12 07:47 | PN- Housestaff ---
Subjective Follow-up For: Cholecystitis status post ERCP follow by laparoscopic cholecystectomy Subjective: Afebrile, WBCs within normal limits, hemodynamically stable, denies any current complaint. Overnight patient required oxycodone for surgical incisions pain after which she had difficulty breathing and desaturated to 88% while on 4 L of oxygen, oxygen saturation went back to 90s without any interventions. Her review of system was benign this morning. Review of Systems Constitutional: Reports: no symptoms. Objective Last 24 Hrs of Vital Signs/I&O Vital Signs Date Time Temp Pulse Resp B/P Pulse O2 O2 Flow FiO2 Ox Delivery Rate 10/12 0916 70 110/60 10/12 0915 70 110/16 10/12 0619 98.9 71 20 110/60 93 Nasal 4.0L Cannula 10/12 0000 Nasal 4.0L Cannula 10/11 2326 98.8 70 20 142/65 93 Nasal 4.0L Cannula 10/11 2134 72 150/70 10/11 1600 Nasal 4.0L Cannula 10/11 1424 97.8 68 20 110/70 94 Nasal 4.0L Cannula 10/11 1223 Nasal 4.0L Cannula Intake & Output 10/12 1600 10/12 0800 10/12 0000 Intake Total 120 200 Output Total 400 Balance -280 200 Intake, Oral 120 200 Output, Urine 400 Physical Exam General Appearance: Alert, Oriented X3, Cooperative, No Acute Distress Cardiovascular: Regular Rate, Normal S1, Normal S2, No Murmurs Lungs: Normal Air Movement, mild crackles at both lungs base Abdomen: Normal Bowel Sounds, Soft, tenderness over surgical incisions Neurological: Normal Speech Extremities: No Clubbing, No Cyanosis, No Edema Current Medications: Current Medications Sig/Rajeev Start time Last Medication Dose Route Stop Time Status Admin Amlodipine Besylate 10 MG DAILY 10/11 1000 AC 10/12 PO 0916 Docusate Sodium 100 MG DAILY NEEDED PRN 10/12 0230 AC 10/12 PO 0621 Enoxaparin Sodium 40 MG DAILY 10/11 1000 AC 10/12 SC 0916 Glycerin 2 SPRAY Q2P PRN 10/10 1145 AC PO Insulin Aspart 0 TIDAC 10/11 1700 AC SC Insulin Human Regular 0 Q6 10/10 1200 DC 10/11 SC 0618 Levothyroxine Sodium 0.05 MG DAILY AC 10/11 0700 AC 10/12 PO 0621 Metoprolol Tartrate 25 MG BID 10/10 2200 AC 10/12 PO 0915 Morphine Sulfate 2 MG Q6P PRN 10/10 1145 AC IV Olanzapine 2.5 MG QPM 10/10 2200 AC 10/11 PO 2134 Omeprazole 20 MG DAILY AC 10/11 0700 AC 10/12 PO 0621 Oxycodone HCl 5 MG Q6 PRN 10/10 1145 AC 10/12 PO 0636 Senna/Docusate Sodium 2 TAB DAILY NEEDED PRN 10/12 0230 AC PO Tramadol HCl 25 MG Q6 PRN 10/10 1145 AC PO Last 24 Hrs of Lab/Sushil Results Last 24 Hrs of Labs/Mics: Microbiology 10/12 1133 BLOOD: Blood Culture - RECD 10/12 1122 BLOOD: Blood Culture - RECD Assessment/Plan Assessment: 86/F who presented with right upper quadrant pain. CT abdomen and pelvis was done and reveals Multiple gallstones with the findings being suspicious for acute cholecystitis. She was been found to have evidence of cholecystitis and choledocholithiasis on an MRCP. She was then taking for ERCP when she was treated with sphincterotomy/balloon extraction, approximately 6 stones were removed. On admission examination: RUQ tenderness. Initially Lactic acid was elevated to 2.9. Her liver function test was abnormal. Urinalysis was benign. #Cholecystitis secondary to obstructive stones, cholecystectomy POD#2 One of two blood cultures that were sent on admission growing a gram-positive rods today. Patient WBCs within normal limits, she is hemodynamically stable, and afebrile. * We'll continue watch of antibiotic as per ID recommendations. * Continue omeprazole 20 mg daily * Pain management with tramadol, oxycodone, and morphine as per pain scale * We will follow-up liver enzymes * We will resume plavix today (POD2) as per surgery note post surgery. * follow up with in 2 weeks post DC. #History of aortic valve replacement On admission patient EKG shows nonspecific abnormalities. It's not significantly different from the last EKG that we had in 2011. However given the long history of valve replacement, troponin and EKG were trended * Nothing to do #Hypothyroidism * Continue levothyroxin 0.05 mg daily #Hypertension * Continue metoprolol 25 mg daily * Continue amlodipine 10 mg daily #DM * Finger stick * Insulin sliding scale Continue all other home medication Regular diet DVT prophylaxis plavix Full code Problem List: 1. Choledocholithiasis 2. Acute cholecystitis 3. Status post cholecystectomy Pain Ratin Pain Location: Over surgical incisions Pain Goal: Remain pain free Pain Plan: see A&P Tomorrow's Labs & Rationales: CBC and BEP Tomorrow's Labs & Rationales: CBC and BEP
--- NOTE | 2016-10-12 08:04 | NUR ---
late entry PT presneted as alert and confused this am, baseline is alert and oriented. Oxygen was low initally and increased w/ deep breaths. MD haddad made aware, chest xray will be ordered.
--- NOTE | 2016-10-12 09:46 | PN- Att Addend ---
Attending Addendum Attending Brief Note Patient complains of pain at the surgical site. Otherwise she is tolerating by mouth diet and no bowel movements yet. General Appearance: Alert, No Acute Distress Skin: Grossly normal HEENT: PEERLA Neck: Supple, No JVD Cardiovascular: Regular Rate, Normal S1, Normal S2, No Murmurs Lungs: Clear to Auscultation, Normal Air Movement Abdomen: Right quadrant pain Neurological: Normal Speech, Strength at 5/5 X4 Ext, Cranial Nerves 3-12 NL, Reflexes 2+ Extremities: No Clubbing, No Cyanosis, No Edema Vascular: Normal Pulses Assessment 86-year-old with history of diabetes, hypertension, GERD, hypothyroidism, history of CVA and aortic valve replacement, presenting with right upper quadrant pain. MRCP confirmed mild cholecystitis with choledocholithiasis for which she underwent ERCP status post balloon dilatation and sphincterotomy. She is currently status post cholecystectomy currently being followed off antibiotics. Now she has 1 out of 2 bottles positive for gram positive rods that appears likely contamination. We will repeat blood cultures and also get an ID evaluation. Plan Repeat blood cultures ID consult Follow off antibiotics Continue pain meds PT evaluation Continue other home medications including insulin subcutaneous DVT prophylaxis Current Medications Sig/Rajeev Start time Last Medication Dose Route Stop Time Status Admin Amlodipine Besylate 10 MG DAILY 10/11 1000 AC 10/12 PO 0916 Docusate Sodium 100 MG DAILY NEEDED PRN 10/12 0230 AC 10/12 PO 0621 Enoxaparin Sodium 40 MG DAILY 10/11 1000 AC 10/12 SC 0916 Glycerin 2 SPRAY Q2P PRN 10/10 1145 AC PO Insulin Aspart 0 TIDAC 10/11 1700 AC SC Insulin Human Regular 0 Q6 10/10 1200 DC 10/11 SC 0618 Levothyroxine Sodium 0.05 MG DAILY AC 10/11 0700 AC 10/12 PO 0621 Metoprolol Tartrate 25 MG BID 10/10 2200 AC 10/12 PO 0915 Morphine Sulfate 2 MG Q6P PRN 10/10 1145 AC IV Olanzapine 2.5 MG QPM 10/10 2200 AC 10/11 PO 2134 Omeprazole 20 MG DAILY AC 10/11 0700 AC 10/12 PO 0621 Oxycodone HCl 5 MG Q6 PRN 10/10 1145 AC 10/12 PO 0636 Senna/Docusate Sodium 2 TAB DAILY NEEDED PRN 10/12 0230 AC PO Tramadol HCl 25 MG Q6 PRN 10/10 1145 AC PO Vital Signs Date Time Temp Pulse Resp B/P Pulse O2 O2 Flow FiO2 Ox Delivery Rate 10/12 0916 70 110/60 10/12 0915 70 110/16 10/12 0619 98.9 71 20 110/60 93 Nasal 4.0L Cannula 10/12 0000 Nasal 4.0L Cannula 10/11 2326 98.8 70 20 142/65 93 Nasal 4.0L Cannula 10/11 2134 72 150/70 10/11 1600 Nasal 4.0L Cannula 10/11 1424 97.8 68 20 110/70 94 Nasal 4.0L Cannula 10/11 1223 Nasal 4.0L Cannula
--- NOTE | 2016-10-12 11:57 | Cons- Infect Disease ---
General Information and HPI Consulting Request Date of Consult: 10/12/16 Requested By: JORGITO WIGGINS MD Reason for Consult: Positive blood culture for gram-positive rods Source of Information: patient History of Present Illness: This is an 86-year-old woman status post porcine aortic valve replacement 8 years prior to admission, diabetes, hypertension, status post CVA with some residual dysarthria, esophageal strictures, status post dilatation, admitted on October 08 with the acute onset of right upper quadrant abdominal pain associated with vomiting and diarrhea following a previous episode 2 days earlier which had resolved. On admission she was afebrile. Laboratory data revealed a white blood cell count of 10,000, BUN/creatinine 12 and 0.7, lipase normal, alkaline phosphatase 154. Urinalysis 1-[address] of the abdomen and pelvis revealed mild intrahepatic biliary ductal dilatation with prominent common bile and distal pancreatic ducts. MRCP revealed multiple gallstones extending to the neck of the gallbladder and possibly cystic duct, with mild enhancement of the gallbladder wall with mild pericholecystic edema, choledocholithiasis with intrahepatic and extrahepatic biliary ductal dilatation, pancreatic ductal dilatation, a complex cystic lesion in the lateral aspect of the mid left kidney and bilateral ovarian cysts. She was evaluated by GI and underwent an ERCP on the day of admission revealing choledocholithiasis, which was managed with sphincterotomy and balloon extraction of approximately 6 stones. She was given a dose of Ceftriaxone and then placed on Ciprofloxacin and Flagyl, which were continued until October 10, when she underwent a laparoscopic cholecystectomy. She has been afebrile since admission. Her white blood cell count increased slightly to 12,000 on October 09 but has been normal since. She does report abdominal pain and anorexia but she has been taking po. This morning 1 blood culture from admission was reported positive for gram-positive rods. Allergies/Medications Allergies: Coded Allergies: Penicillins (Intermediate, HIVES, ITCHING 10/08/16) Home Med List: Acetaminophen With Codeine (Acetaminophen-Cod #3 Tablet) 300 MG-30 MG TABLET 1 TAB PO DAILY PRN PAIN (Reported) Amlodipine Besylate/Benazepril (Amlodipine-Benazepril 10-40 MG) 10 MG-40 MG CAPSULE 1 CAP PO DAILY HEART (Reported) Clopidogrel Bisulfate (Clopidogrel) 75 MG TABLET 1 TAB PO DAILY BLOOD THINNER (Reported) Levothyroxine Sodium (Synthroid) 50 MCG TABLET 1 TAB PO DAILY AC THYROID ( Reported) Metoprolol Tartrate 25 MG TABLET 1 TAB PO BID HEART (Reported) Olanzapine 5 MG TABLET 0.5 TAB PO QPM SLEEP (Reported) Rabeprazole Sodium 20 MG TABLET.DR 1 TAB PO DAILY GI (Reported) Past History Travel History Traveled to [place] past 21 day No Medical History Blood Transfusion Hx: No Neurological: CVA Cardiovascular: hypertension Gastrointestinal: schatzki ring status post dilatation Musculoskeletal: osteoarthritis Psychiatric: anxiety Endocrine: hypothyroidism History of MRSA: No History of VRE: No History of CDIFF: No Isolation History: Standard Pneumonia Vaccine: 07/04/09 Influenza Vaccine: 10/11/16 Surgical History Surgical History: appendectomy, hysterectomy, status post porcine aortic valve replacement Psychosocial History Where Do You Live? Home Services at Home: None Smoking Status: Never Smoked Review of Systems Review of Systems Cardiovascular: Denies: chest pain. Respiratory: Reports: cough. Denies: short of breath. Genitourinary: Reports: no symptoms. Exam & Diagnostic Data Last 24 Hrs of Vital Signs/I&O Vital Signs Date Time Temp Pulse Resp B/P Pulse O2 O2 Flow FiO2 Ox Delivery Rate 10/12 0916 70 110/60 10/12 0915 70 110/16 10/12 0619 98.9 71 20 110/60 93 Nasal 4.0L Cannula 10/12 0000 Nasal 4.0L Cannula 10/11 2326 98.8 70 20 142/65 93 Nasal 4.0L Cannula 10/11 2134 72 150/70 10/11 1600 Nasal 4.0L Cannula 10/11 1424 97.8 68 20 110/70 94 Nasal 4.0L Cannula 10/11 1223 Nasal 4.0L Cannula Intake & Output 10/12 1600 10/12 0800 10/12 0000 Intake Total 120 200 Output Total 400 Balance -280 200 Intake, Oral 120 200 Output, Urine 400 Physical Exam Other Physical Findings: She is awake and alert in no acute distress. She is afebrile. Skin reveals no rash. HEENT exam is negative. Neck is supple with no adenopathy. Lungs bibasilar crackles. Heart regular rhythm with a 2/6 systolic murmur. Abdomen is soft, tender on minimal palpation, with positive bowel sounds. Back no CVA tenderness. Extremities no cyanosis, clubbing or edema. Neuro is without focality. Last 24 Hours of Lab Results: Laboratory Tests 10/11 0630 Hematology CBC w Diff NO MAN DIFF REQ WBC (4.8 - 10.8 /CUMM) 8.9 RBC (4.20 - 5.40 /CUMM) 4.56 Hgb (12.0 - 16.0 G/DL) 13.2 Hct (37 - 47 %) 40.2 MCV (81.0 - 99.0 FL) 88.2 MCH (27.0 - 31.0 PG) 28.8 RDW (11.5 - 14.5 %) 14.4 Plt Count (130 - 400 /CUMM) 181 MPV (7.4 - 10.4 FL) 8.9 Gran % (42.2 - 75.2 %) 87.8 H Lymphocytes % (20.5 - 51.1 %) 5.1 L Monocytes % (1.7 - 9.3 %) 7.0 Eosinophils % (0 - 5 %) 0 Basophils % (0.0 - 2.0 %) 0.1 Absolute Granulocytes (1.4 - 6.5 /CUMM) 7.9 H Absolute Lymphocytes (1.2 - 3.4 /CUMM) 0.5 L Absolute Monocytes (0.10 - 0.60 /CUMM) 0.6 Absolute Eosinophils (0.0 - 0.7 /CUMM) 0 Absolute Basophils (0.0 - 0.2 /CUMM) 0 PUBS MCHC (33.0 - 37.0 G/DL) 32.7 L Last 24 Hours of Sushil Results: Blood cultures October 08 one bottle positive for gram-positive rods Diagnostic Data Recent Imaging Findings: CT of the abdomen and pelvis revealed mild intrahepatic biliary ductal dilatation with prominent common bile and distal pancreatic ducts. MRCP revealed multiple gallstones extending to the neck of the gallbladder and possibly cystic duct, with mild enhancement of the gallbladder wall with mild pericholecystic edema, choledocholithiasis with intrahepatic and extrahepatic biliary ductal dilatation, pancreatic ductal dilatation, a complex cystic lesion in the lateral aspect of the mid left kidney and bilateral ovarian cysts. Chest x-ray October 08 no acute process Assessment/Plan Assessment/Plan Impression: This is an 86-year-old woman status post porcine aortic valve replacement, diabetes, hypertension, status post CVA and esophageal strictures admitted on October 08 with the acute onset of right upper quadrant pain and vomiting felt to be secondary to acute cholecystitis, with imaging studies revealing cholelithiasis and choledocholithiasis, status post ERCP with sphincterotomy and laparoscopic cholecystectomy, now with one blood culture positive for gram- positive rods. This most likely represents a contaminant as it took nearly 4 days to grow and, therefore, do not feel that antibiotics need to be restarted. She has overall improved with temperatures and white blood cell count remaining normal and feel that she can continue to be followed off antibiotics. Suggestion: 1. Follow-up final blood culture results 2. Continue to follow off antibiotics pending above Consult Acknowledgment - Thank you for your consult request.
--- NOTE | 2016-10-12 13:19 | PN- General Surgery ---
Surgical Brief Attending Note Brief Attending Note: Pain at umbilicus when twisting. Blood cultures 3 days ago show new growth of gram-positive andrés. Defer to infectious disease. From a surgical perspective, patient is suitable for discharge pending ID evaluation.
[2016-10-12 15:09] VITALS: BP 145/69
--- NOTE | 2016-10-12 15:48 | RADIOLOGY REPORT ---
EXAMINATION: XR PORTABLE CHEST CLINICAL INFORMATION: Status post aortic valve replacement. "Crackles "a physical examination suggesting a pleural effusion and/or congestive changes. COMPARISON: AP upright view of the chest from 05/09/2012. TECHNIQUE: Portable AP view of the chest was obtained. FINDINGS: The patient is rotated to the left. Again noted are the presence of sternotomy wires. The lung volumes are reduced bilaterally. Atelectatic changes are present at both lung bases. There is suggestion of a left pleural effusion. There may be consolidation in the retrocardiac left lower lobe as well. There appears to be vascular congestive changes of the pulmonary circulation. The heart is not enlarged. IMPRESSION: 1. Bibasilar atelectasis. 2. Probable left lower lobe consolidation and left pleural effusion. 3. Suggestion of mild pulmonary congestive changes.
[2016-10-12 17:26] VITALS: BP 130/74
[2016-10-12 19:13] LABS: ABSOLUTE BASOPHIL COUNT 0.1 /CUMM (0.0-0.2); ABSOLUTE EOSINOPHIL COUNT 0.1 /CUMM (0.0-0.7); ABSOLUTE LYMPH COUNT 0.9 /CUMM (1.2-3.4); ABSOLUTE MONOCYTE COUNT 0.8 /CUMM (0.10-0.60); BASOPHIL % 0.6 % (0.0-2.0); EOSINOPHIL % 0.6 % (0-5); GRANULOCYTE % 80.2 % (42.2-75.2); HEMATOCRIT 40.2 % (37-47); MEAN CORPUSCULAR HGB 28.4 PG (27.0-31.0); MEAN CORPUSCULAR HGB CONC 32.5 G/DL (33.0-37.0); MEAN CORPUSCULAR VOLUME 87.5 FL (81.0-99.0); MEAN PLATELET VOLUME 8.4 FL (7.4-10.4); PLATELET COUNT 197 /CUMM (130-400); RBC DISTRIBUTION WIDTH 13.6 % (11.5-14.5); WHITE BLOOD CELL COUNT 8.8 /CUMM (4.8-10.8)
--- NOTE | 2016-10-12 20:18 | NUR ---
LATE ENTRY : PATIENT WAS RECEIVING A TREATMENT FROM THE RESP THERAPIST @ 181 WHEN SHE INFORMED ME THAT PATIENT'S SPO2 WAS 88-85% ON 4L OF 02. O2 INCREASED TO 6L AND SPO2 REMAINED @ 88% WITH NO ACUTE RESP DISTRESS. ISMAIL THE BEER STILL RUNNER COMPOUNDER WAS MADE AWARE- MD THEN ORDERED ABG'S. THE RT THEN PUT THE PATIENT ON AN OXIMIZER VIA NC TO BETTER ASSIST PT'S O2 SATS- O2 SAT INCREASED TO 93% PATIENT REMAINED FAIRLY ASYMPTOMATIC. THE MD CAHTERINE LEON THEN ARRIVED ON THE FLOOR AT THIS TIME- RAPID RESPONSE CALLED D/T PT'S INCREASED OXYGEN NEEDS. PATIENT'S VITALS FAIRLY STABLE AND PATIENT REMAINED RESPONSIVE. FINGERSTICK BS 130. CT SCAN ORDERED TO RULE OUT POSSIBLE PE. 20 GAUGE IV PLACED TO RAC. IV NARCAN 0.4 MG ADMINISTERED WELL. PATIENT WAS TRANSFERED TO ICU- LEAVING THE UNIT WITH RN LEARNING DEVELOPER JOSSELINE AND BENCH LATHE OPERATOR MARIO. REPORT GIVEN TO BENCH LATHE OPERATOR.
--- NOTE | 2016-10-12 20:40 | CT SCAN REPORT ---
EXAMINATION: CT ANGIOGRAM OF THE CHEST WITH AND WITHOUT CONTRAST (CT PULMONARY ANGIOGRAM FOR PE) CLINICAL INFORMATION: Acute onset hypoxia, progressive mentation change. COMPARISON: Portable chest 10/12/2016 TECHNIQUE: Prior to contrast administration, noncontrast localization images were obtained. Subsequently, multidetector volumetric imaging was performed from the thoracic inlet to below the diaphragms following the administration of 60 mL Optiray 350 intravenous contrast. No contrast reaction reported. Sagittal, coronal, and MIP oblique sagittal reformatted images were obtained on the CT workstation, uploaded to PACS, and reviewed. Total exam dose-length product 420.57 mGy-cm. FINDINGS: QUALITY OF STUDY/CONTRAST BOLUS: Satisfactory PULMONARY ARTERIES: No central or segmental pulmonary emboli. THORACIC AORTA: Atherosclerotic vascular wall calcifications of aorta. Status post aortic valve replacement. There is vascular calcification of coronary arteries. LUNG: Minimal dependent atelectasis at lung bases bilateral. Lungs are otherwise clear. The central bronchial airways are open. PLEURA: Focal pleural thickening anterior right hemithorax without calcification. MEDIASTINUM: Normal heart size. No pericardial effusion. No hilar or mediastinal lymphadenopathy. No evidence of septal bowing or right heart strain. Large hiatal hernia. CHEST WALL/AXILLA: No axillary or internal mammary lymphadenopathy. OSSEOUS STRUCTURES: Status post median sternotomy. Kyphosis of dorsal spine with multilevel degenerative spondylosis. UPPER ABDOMEN: Unremarkable. No reflux of contrast into the hepatic veins to suggest elevated right heart pressures. IMPRESSION: 1. No evidence of pulmonary embolism. No acute change of the chest. VTE: negative
--- NOTE | 2016-10-12 20:59 | Event Note ---
Event Note Event Note: Yesterday overnight patient desaturates to 88% after which her oxygen saturation requirement increased from 2 L to 4 L. Through the morning patient was alert and oriented however was mildly lethargic. Around 1730 I notes that she is mildly confused and looks lethargic comparing to the morning, her daughter was on bedside and she confirmed that her mother is below her baseline. Patient oxygen requirement increased from 4 at 1730 to 10 L on 1800. Bedside physical exam Patient was alert and oriented X3, she looked lethargic and tired. Cardiovascular: Irregular heart rate, with systolic murmur. Respiratory: Clear chest auscultation with no additional sounds Nervous system: Intact cranial nerves, strength is 5/5 all over. EKG and troponin, BMP, magnesium, calcium, phosphorus, and CBC where ordered. ABG 7.47,39,68,28,94. Assessment and plan Given the progressive increase in oxygen requirements, Old with the ABG finding, with recent history of surgery, CT was ordered to rule out pulmonary embolism, results came back negative for PE. Patient was found to have multiple pauses on the heart monitoring, he was transferred to ICU. Plan was discussed and agreed with resident
--- NOTE | 2016-10-12 21:41 | NUR ---
RECEIVED FROM VIA STRETCHER AT 2000-100%NRB, EKG MONITORING, [address] PT PLAC[address] IN BED AND ATTACHED TO BEDSIDE MONITOR. ORIENTATION TO UNIT DONE. PT ALERT, CONFUSED, FOLLOWS COMMANDS. C/O ABD PAIN-RATES 5 OUT OF 10 AT PRESENT. BREATH SOUNDS CLEAR WITH DIMINISHED BREATH SOUNDS AT BASES BILATERALLY. NO COUGH, SOB OR RESP DISTRESS NOTED AT PRESENT. 02 CHANGE TO 10L NC WITH RESEVOIR. SEE FLOW SHEET FOR VS, 02 SATS, I/O'S. MONITOR SHOWS NSR WITH BBB, FREQUENT LUDY DOWN TO 48-58-COMES BACK UP ON OWN. PACER PADS ON. DENIES ANY CHEST PAIN AT PRESENT. HAS NOT VOIDED OF YET. SKIN INTACT. ABD DRESSING C/D/I. ABD SOFT, TENDER, TO TOUCH, NONDISTENDED, HYPOACTIVE BOWEL SOUNDS AT PRESENT. SKIN INTACT. FAMILY AT BEDSIDE AT PRESENT
[2016-10-12 23:00] VITALS: BP 134/70
--- NOTE | 2016-10-13 01:30 | NUR ---
PT DESATURATED DOWN TO 85-90% ON 10LC PENDENT-REPORTED TO RESP THERAPIST- PLACED ON HIGH FLOW 02 AT 60%-WILL MONITOR-O2 SATS UP TO 96-97%. SBP 160'S-2200 DOSE OF LOPRESSOR HELD PT WAS HAVING PAUSES-REPORTED TO DR. SALDIVAR-NO ORDERS GIVEN AT PRESENT-WILL MONITOR. INCREASE IN [address] SALDIVAR
--- NOTE | 2016-10-13 02:15 | NUR ---
BP REMAINS 167/77-REPORTED TO DR. SALDIVAR-HYDRALAZINE 25MG PO GIVEN ORDERED-SEE EMAR-WILL MONITOR
[2016-10-13 06:02] LABS: ABSOLUTE BASOPHIL COUNT 0 /CUMM (0.0-0.2); ABSOLUTE EOSINOPHIL COUNT 0.1 /CUMM (0.0-0.7); ABSOLUTE GRANULOCYTE CT 4.8 /CUMM (1.4-6.5); ABSOLUTE LYMPH COUNT 0.9 /CUMM (1.2-3.4); ABSOLUTE MONOCYTE COUNT 0.6 /CUMM (0.10-0.60); BASOPHIL % 0.3 % (0.0-2.0); EOSINOPHIL % 1.2 % (0-5); GRANULOCYTE % 75.1 % (42.2-75.2); HEMATOCRIT 38.9 % (37-47); MEAN CORPUSCULAR HGB 28.8 PG (27.0-31.0); MEAN CORPUSCULAR HGB CONC 32.6 G/DL (33.0-37.0); MEAN CORPUSCULAR VOLUME 88.3 FL (81.0-99.0); MEAN PLATELET VOLUME 8.8 FL (7.4-10.4); PLATELET COUNT 174 /CUMM (130-400); RBC DISTRIBUTION WIDTH 14.3 % (11.5-14.5); RED BLOOD CELL CT 4.41 /CUMM (4.20-5.40); WHITE BLOOD CELL COUNT 6.4 /CUMM (4.8-10.8)
--- NOTE | 2016-10-13 06:29 | NUR ---
PT AWAKE MOST OF NIGHT-SLEPT IN SHORT SPURTS ONLY, FINALLY FELL ASLEEP AT 0600. PT WITH C/O INCISIONAL ABD PAIN ONLY WITH COUGHING OR MOVING-PT DENIED THE NEED FOR PAIN MEDS THOUGHOUT SHIFT. BREATH SOUNDS CLEAR WITH CRACKLES AT BASES. 02 SATS 91-96% ON HIGH FLOW 02 AT 60%. NO COUGH OR SOB NOTED THOUGHOUT SHIFT. MONITOR SHOWED NSR WITH OCC PAC'S AND PVC'S-NO FURTHER PAUSES AFTER KCL AND K PHOS BOLUSES. BP 150'S AFTER PO HYDRALAZINE DOSE. VOIDING CLEAR YELLOW URINE. SKIN INTACT. ABD OBESE, TENDER, NONDISTENDED, POSITIVE BOWEL SOUNDS. BANDAIDS ON ABD C/D/I. HYPOACTIVE BS. DAUGHTER SPENT NIGHT WITH PT-SUPPORTIVE OF PT
--- NOTE | 2016-10-13 08:02 | PN- Housestaff ---
Assessment/Plan Assessment: 86/F who presented with right upper quadrant pain. CT abdomen and pelvis was done and reveals Multiple gallstones with the findings being suspicious for acute cholecystitis. She was been found to have evidence of cholecystitis and choledocholithiasis on an MRCP. She was then taking for ERCP when she was treated with sphincterotomy/balloon extraction, approximately 6 stones were removed. On admission examination: RUQ tenderness. Initially Lactic acid was elevated to 2.9. Her liver function test was abnormal. Urinalysis was benign. #Cholecystitis secondary to obstructive stones, cholecystectomy POD#2 One of two blood cultures that were sent on admission growing a gram-positive rods today. Patient WBCs within normal limits, she is hemodynamically stable, and afebrile. * We'll continue watch of antibiotic as per ID recommendations. * Continue omeprazole 20 mg daily * Pain management with tramadol, oxycodone, and morphine as per pain scale * We will follow-up liver enzymes * We will resume plavix today (POD2) as per surgery note post surgery. * follow up with in 2 weeks post DC. #History of aortic valve replacement On admission patient EKG shows nonspecific abnormalities. It's not significantly different from the last EKG that we had in 2012. However given the long history of valve replacement, troponin and EKG were trended * Nothing to do #Hypothyroidism * Continue levothyroxin 0.05 mg daily #Hypertension * Continue metoprolol 25 mg daily * Continue amlodipine 10 mg daily #DM * Finger stick * Insulin sliding scale Continue all other home medication Regular diet DVT prophylaxis plavix Full code
[2016-10-13 08:22] VITALS: BP 149/72
--- NOTE | 2016-10-13 08:34 | Cons- CRCU ---
[facility] 10/13/16 0834: General Information and HPI Consulting Request Date of Consult: 10/13/16 Requested By: DR. JORGITO WIGGINS Reason for Consult: HYPOXIC RESPIRATORY FAILURE Source of Information: patient, family Exam Limitations: no limitations History of Present Illness: Ms Britton is a 86 lady with PMH significant for DM type 2, HTN, GERD, hypothyroidism, CVA, aortic valve replacement, anxiety, Schatzki's ring s/p surgery correction, appendectomy, and hysterectomy who presented to the ED with RUQ abdominal pain of one week with episodes of nonbloody watery diarrhea on 01/2017. Abdominal CT revealed mild intrahepatic biliary ductal dilatation and MRI indicated multiple gallstones; she underwent ERCP on the same day with sphincterotomy and removal of common bile duct stones. This was followed by a cholecystectomy two days later on 10/10/16. Patient was on general medicine floor until yesterday evening when she was found to be desaturating to 88% on 4L oxygen per NC and with changes in mentation with confusion and lethargy, she also reportedly had pauses on the surveillance system monitor, however no records are available. Patient was transferred to the ICU for close monitoring. Currently she is high flow O2 (60%), not in any distress, alert and oriented. Reports pain in the abdomen when taking deep breaths. Allergies/Medications Allergies: Coded Allergies: Penicillins (Intermediate, HIVES, ITCHING 10/08/16) Home Med List: Acetaminophen With Codeine (Acetaminophen-Cod #3 Tablet) 300 MG-30 MG TABLET 1 TAB PO DAILY PRN PAIN (Reported) Amlodipine Besylate/Benazepril (Amlodipine-Benazepril 10-40 MG) 10 MG-40 MG CAPSULE 1 CAP PO DAILY HEART (Reported) Clopidogrel Bisulfate (Clopidogrel) 75 MG TABLET 1 TAB PO DAILY BLOOD THINNER (Reported) Levothyroxine Sodium (Synthroid) 50 MCG TABLET 1 TAB PO DAILY AC THYROID ( Reported) Metoprolol Tartrate 25 MG TABLET 1 TAB PO BID HEART (Reported) Olanzapine 5 MG TABLET 0.5 TAB PO QPM SLEEP (Reported) Rabeprazole Sodium 20 MG TABLET.DR 1 TAB PO DAILY GI (Reported) Review of Systems Review of Systems Constitutional: Denies: chills, fever. EENTM: Reports: no symptoms. Cardiovascular: Denies: chest pain, palpitations, peripheral edema. Respiratory: Reports: cough. Denies: short of breath, sputum production. GI: Reports: abdominal pain (with deep breaths). Genitourinary: Reports: no symptoms. Musculoskeletal: Reports: no symptoms. Skin: Reports: no symptoms. Past History Travel History Traveled to [place] past 21 day No Medical History Blood Transfusion Hx: No Neurological: CVA Cardiovascular: hypertension Gastrointestinal: schatzki ring status post dilatation Musculoskeletal: osteoarthritis Psychiatric: anxiety Endocrine: hypothyroidism Surgical History Surgical History: appendectomy, hysterectomy, status post porcine aortic valve replacement Psychosocial History Where Do You Live? Home Services at Home: None Smoking Status: Never Smoked Exam & Diagnostic Data Last 24 Hrs of Vital Signs/I&O Vital Signs Date Time Temp Pulse Resp B/P Pulse O2 O2 Flow FiO2 Ox Delivery Rate 10/13 0822 96.8 76 24 149/72 96 Nasal 60% Cannula 10/13 0800 95 Nasal 60% Cannula 10/13 0529 98 Nasal 60% Cannula 10/13 0400 97 Nasal 60% Cannula 10/13 0210 80 23 167/77 10/13 0129 98 Nasal 60% Cannula 10/13 0054 91 Nasal Cannula 10/13 0000 94 Nasal 10L Cannula 10/12 2300 97.4 80 27 134/70 94 Nasal 10L Cannula 10/12 2210 49 20 168/82 10/12 2000 93 Nasal 10L Cannula 10/12 1928 Nasal 10L Cannula 10/12 1726 98.4 78 18 130/74 91 Nasal 4.0L Cannula 10/12 1509 98.9 76 20 145/69 92 Nasal 4.0L Cannula Intake & Output 10/13 1600 10/13 0800 10/13 0000 Intake Total 310 260 Output Total 400 200 Balance -90 60 Intake, IV 250 200 Intake, Oral 60 60 Number 0 0 Bowel Movements Output, Urine 400 200 Physical Exam General Appearance: well developed/nourished, no apparent distress, comfortable Head: atraumatic, normal appearance Eyes: Bilateral: normal appearance, PERRL, EOMI. Ears, Nose, Throat: normal ENT inspection Neck: normal inspection, supple Respiratory: chest non-tender, quiet respiration, decreased breath sounds, decreased air entry, no crackles or rhocnhi heard Cardiovascular: regular rate/rhythm Peripheral Pulses: 2+ radial (R), 2+ radial (L), 2+ dorsalis pedis (R), 2+ dorsalis pedis (L) Gastrointestinal: tenderness, there are 4 small areas of skin on the abdomen that are covered with dressing, 1 in RUQ, 2 in the midline and 1 in LUQ, s/p laparascopic cholecystectomy, which are tender to touch. Back: kyphosis peresent Extremities: normal inspection, normal capillary refill, normal range of motion Neurologic/Psych: awake, alert, oriented x 3 Cranial Nerves: normal hearing, normal speech Skin: intact Last 48 Hrs of Labs/Sushil: Laboratory Tests 10/13/16 0624: Anion Gap 7, Estimated GFR > 60, BUN/Creatinine Ratio 18.3, Magnesium Pending, Total Bilirubin 0.9, Direct Bilirubin 0.5 H, AST 15, ALT 34, Alkaline Phosphatase 94, Total Protein 5.1 L, Albumin 2.6 L 10/13/16 0425: CBC w Diff NO MAN DIFF REQ, RBC 4.41, MCV 88.3, MCH 28.8, RDW 14.3, MPV 8.8, Gran % 75.1, Lymphocytes % 13.8 L, Monocytes % 9.6 H, Eosinophils % 1.2, Basophils % 0.3, Absolute Granulocytes 4.8, Absolute Lymphocytes 0.9 L, Absolute Monocytes 0.6, Absolute Eosinophils 0.1, Absolute Basophils 0, PUBS MCHC 32.6 L 10/13/16 0108: Troponin I < 0.01 10/12/16 1924: D-Dimer 976 H 10/12/16 1902: pH 7.47 H, pCO2 39, pO2 68 L, HCO3 28, ABG O2 Sat (Measured) 94.0 L, Carboxyhemoglobin 0.6 L, O2 Concentration % 10L, O2 Delivery Method NC, Phlebotomy Draw Site LEFT RADIAL 10/12/16 1850: Anion Gap 10, Estimated GFR > 60, BUN/Creatinine Ratio 21.4, Calcium 8.2 L, Phosphorus 2.6, Magnesium 2.1, Troponin I < 0.01, Albumin 2.7 L, CBC w Diff NO MAN DIFF REQ, RBC 4.60, MCV 87.5, MCH 28.4, RDW 13.6, MPV 8.4, Gran % 80.2 H, Lymphocytes % 9.9 L, Monocytes % 8.7, Eosinophils % 0.6, Basophils % 0.6, Absolute Granulocytes 7.0 H, Absolute Lymphocytes 0.9 L, Absolute Monocytes 0.8 H, Absolute Eosinophils 0.1, Absolute Basophils 0.1, PUBS MCHC 32.5 L 10/12/16 1759: Phosphorus Cancelled, CBC w Diff Cancelled, WBC Cancelled, RBC Cancelled, Hgb Cancelled, Hct Cancelled, MCV Cancelled, MCH Cancelled, RDW Cancelled, Plt Count Cancelled, MPV Cancelled, PUBS MCHC Cancelled 10/12/16 1000: Albumin Cancelled Assessment/Plan Impression/Plan: Ms Britton is a 86 lady with PMH significant for DM type 2, HTN, GERD, hypothyroidism, CVA, aortic valve replacement, anxiety, Schatzki's ring s/p surgery correction, appendectomy, and hysterectomy who presented to the ED with RUQ abdominal pain of one week with episodes of nonbloody watery diarrhea on 01/2017. She underwent ERCP with sphincterotomy and removal of common bile duct stones, followed by a cholecystectomy two days later on 10/10/16. On 10/12/2016 in he evening the patient was found to be desaturating to 88% on 4L oxygen per NC and with changes in mentation with confusion and lethargy, she also reportedly had pauses on the surveillance system monitor. Patient was transferred to the ICU for close monitoring. Problem list and plan: Respiratory - Acute hypoxic respiratory failure * On high flow oxygen with 60% FiO2 * CTA of the chest revealed large hiatal hernia, no evidence of a PE, minimal dependent atelectasis at lung bases bilaterally. Patient also has severe kyphosis that restricts lung expansion, in addition to the abdominal pain post cholecystectomy * continue on O2 supplementation to keep SO2>92%, and try to taper down the FiO2 Cardiovascular - Episode of pause in the monitor last night, no similar episode or bradyarrhythmia since moving to ICU. No chest pain or palpitations, no dizziness. history of aortic valve replacement. EKG: NSR, rate 82, LBBB. troponin (-)x3 * cardiac monitoring * cardiology consult placed, appreciated recommendations * continue metoprolol 25 mg BID - History of CVA * continue plavix 75 daily - HTN * Amlodipine 10 mg daily and metoprolol 25 mg BID ID - Positive blood culture * Diphtheroids, possibly contamination * watch off ABx * monitor for fever abd repeat CBC in am GI - Abdominal pain s/p cholecystectomy * reports abdominal pain with coughing and deep breaths. diet has started on the patient. has not had bowel movement since admission * modifies bowel * Dulcolax suppository once * Continue bowel regimen including colace and senokot * Control mild pain with tramadol, moderate pain with oxycodone, severe pain with morphine. * GI and surgery recommendations appreciated - GERD * omeprazole 40 mg daily Endocrine - DM, hypothyroidism * Accuchecks and novolog insulin SS * levothyroxine 0.05 mg daily Alimentary - Diet * modified barium swallow ordered given large hiatal hernia and possible risk of aspiration * she is on regular diet, changed to chopped and nectar thick liquids Pain * will control mild pain, tramadol. moderate pain, oxycodone, severe pain morphine. DVT px * SC lovenox FULL code Consult Acknowledgment - Thank you for your consult request. ELMER GAITAN MD 10/13/16 0945: Past History Family History Relations & Conditions If Any: Relation not specified for: *No pertinent family history Assessment/Plan Other Findings/Comments: Elmer Molina M.D. have examined this patient, reviewed available EMR data, personally reviewed images, discussed with resident/PA/PROFESSOR OF PHYSICS, discussed management plan with housestaff and nursing staff, discussed managment plan all of healthcare providers, discussed management plan with patient and/or family, agreed with resident/PA/PROFESSOR OF PHYSICS. The past history and parts of the chart have been autopopulated. Impression 86-year-old woman * Postoperative respiratory failure and hypoxemia likely secondary to hypoinflation requiring high flow oxygen, all likely related to atelectasis * Arrhythmia with long pauses and atrial and ventricular ectopy * History of aVR * Hypertension and hypothyroidism Plan Respiratory -Reduce FiO2 requirements as tolerated to maintain oxygen saturation above 92% -Incentive spirometry coupled with pain control judiciously -No evidence of pulmonary emboli, no effusions or congestion ID -Diphtheroids and the blood possibly contaminants per primary team -Monitor white count and fevers CVS -Cardiology consultation with Dr. Vilchis -Continue Plavix -Medication adjustments will be performed by cardiology -Hemodynamic monitoring -Arrhythmia monitoring/telemetry monitoring Heme -Monitor coags and H&H Metabolic -Monitor electrolytes including magnesium phosphate and potassium. Replete as needed -Monitor ins and outs Alimentary -Per surgery, surgical and GI follow-up Neuro -History of CVA no active issues at this time DVT prophylaxis at all times Discussed with patient and family TTS 45 min Consult Acknowledgment - Thank you for your consult request.
--- NOTE | 2016-10-13 08:46 | Cons- Cardiology ---
General Information and HPI Consulting Request Date of Consult: 10/13/16 Requested By: JORGITO WIGGINS MD Reason for Consult: HYPOXIC RESPIRATORY FAILURE; REPORTED LONG PAUSES ON MONITOR Source of Information: patient, family, old records History of Present Illness: The patient is an 86-year-old female, previously followed by Dr. Egan. The patient has a history of a prosthetic aortic valve. The patient is admitted now with cholecystitis. She underwent an ERCP with removal of several gallstones. Last night, the patient had some deterioration in her respiratory status requiring high flow oxygen. A CTA was obtained. At that time, the patient was reportedly noted to have several long pauses on her bedside monitor. There is no recording available of these episodes. The patient otherwise denies any symptoms. She has had no evidence of any further significant bradycardia arrhythmias since arrival in the ICU. Allergies/Medications Allergies: Coded Allergies: Penicillins (Intermediate, HIVES, ITCHING 10/08/16) Home Med List: Acetaminophen With Codeine (Acetaminophen-Cod #3 Tablet) 300 MG-30 MG TABLET 1 TAB PO DAILY PRN PAIN (Reported) Amlodipine Besylate/Benazepril (Amlodipine-Benazepril 10-40 MG) 10 MG-40 MG CAPSULE 1 CAP PO DAILY HEART (Reported) Clopidogrel Bisulfate (Clopidogrel) 75 MG TABLET 1 TAB PO DAILY BLOOD THINNER (Reported) Levothyroxine Sodium (Synthroid) 50 MCG TABLET 1 TAB PO DAILY AC THYROID ( Reported) Metoprolol Tartrate 25 MG TABLET 1 TAB PO BID HEART (Reported) Olanzapine 5 MG TABLET 0.5 TAB PO QPM SLEEP (Reported) Rabeprazole Sodium 20 MG TABLET.DR 1 TAB PO DAILY GI (Reported) Current Medications: Current Medications Sig/Rajeev Start time Last Medication Dose Route Stop Time Status Admin Amlodipine Besylate 10 MG DAILY 10/11 1000 AC 10/12 PO 0916 Clopidogrel Bisulfate 75 MG DAILY 10/12 1437 AC 10/12 PO 1659 Docusate Sodium 100 MG DAILY NEEDED PRN 10/12 0230 AC 10/12 PO 0621 Enoxaparin Sodium 40 MG DAILY 10/11 1000 AC 10/12 SC 0916 Glycerin 2 SPRAY Q2P PRN 10/12 2100 CAN PO Glycerin 2 SPRAY Q2P PRN 10/10 1145 AC 10/12 PO 2154 Hydralazine HCl 25 MG ONCE ONE 10/13 0215 DC 10/13 PO 10/13 0216 0210 Insulin Aspart 0 TIDAC 10/11 1700 AC SC Levothyroxine Sodium 0.05 MG DAILY AC 10/11 07 AC 10/13 PO 0552 Metoprolol Tartrate 25 MG BID 10/10 2200 AC 10/12 PO 0915 Morphine Sulfate 2 MG Q6P PRN 10/10 1145 AC IV Naloxone HCl 0.4 MG ONCE ONE 10/12 1944 DC IV 10/12 194 Olanzapine 2.5 MG QPM 10/10 2200 AC 10/12 PO 2153 Omeprazole 20 MG DAILY AC 10/11 07 AC 10/13 PO 0552 Oxycodone HCl 5 MG Q6 PRN 10/10 1145 AC 10/12 PO 0636 Potassium Chloride 10 MEQ Q1H 10/12 1944 DC 10/12 IV 10/12 204 2248 Potassium Phosphate 15 mMol ONE ONE 10/12 2200 DC 10/13 Dextrose/Water 250 ML IV 10/13 0203 0006 Senna/Docusate Sodium 2 TAB DAILY NEEDED PRN 10/12 0230 AC PO Sodium Chloride 2 SPRAY Q4P PRN 10/12 2215 AC HARSHIL Tramadol HCl 25 MG Q6 PRN 10/10 1145 AC PO Past History Travel History Traveled to [place] past 21 day No Medical History Blood Transfusion Hx: No Neurological: CVA Cardiovascular: hypertension Gastrointestinal: schatzki ring status post dilatation Musculoskeletal: osteoarthritis Psychiatric: anxiety Endocrine: hypothyroidism Surgical History Surgical History: appendectomy, hysterectomy, status post porcine aortic valve replacement Psychosocial History Where Do You Live? Home Services at Home: None Smoking Status: Never Smoked Exam & Diagnostic Data Vital Signs and I&O Vital Signs Date Time Temp Pulse Resp B/P Pulse O2 O2 Flow FiO2 Ox Delivery Rate 10/13 0822 96.8 76 24 149/72 96 Nasal 60% Cannula 10/13 0800 95 Nasal 60% Cannula 10/13 0529 98 Nasal 60% Cannula 10/13 0400 97 Nasal 60% Cannula 10/13 0210 80 23 167/77 10/13 0129 98 Nasal 60% Cannula 10/13 0054 91 Nasal Cannula 10/13 0000 94 Nasal 10L Cannula 10/12 2300 97.4 80 27 134/70 94 Nasal 10L Cannula 10/12 2210 49 20 168/82 10/13 1999 93 Nasal 10L Cannula 10/13 1927 Nasal 10L Cannula 10/12 1726 98.4 78 18 130/74 91 Nasal 4.0L Cannula 10/12 1509 98.9 76 20 145/69 92 Nasal 4.0L Cannula 10/12 0916 70 110/60 10/12 0915 70 110/16 Intake & Output 10/13 1600 10/13 0800 10/13 0000 10/12 1600 10/12 0800 10/12 0000 Intake Total 310 260 720 120 200 Output Total 400 200 200 400 Balance -90 60 520 -280 200 Intake, IV 250 200 Intake, Oral 60 60 720 120 200 Number 0 0 0 Bowel Movements Output, Urine 400 200 200 400 Physical Exam: General Appearance Alert, Oriented X3, Cooperative, No Acute Distress Skin No Rashes HEENT Atraumatic, PERRLA, EOMI, Mucous Membr. moist/pink Cardiovascular Normal S1, Normal S2, 2/6 systolic murmur Lungs Clear to Auscultation, Normal Air Movement Abdomen Normal Bowel Sounds, Soft, No Tenderness Neurological Normal Speech Extremities No Clubbing, No Cyanosis, No Edema Labs/Sushil Results: Laboratory Tests 10/13 10/13 10/13 10/12 0624 0425 0108 1924 Chemistry Sodium (137 - 145 mmol/L) 136 L Potassium (3.5 - 5.1 mmol/L) 3.7 Chloride (98 - 107 mmol/L) 99 Carbon Dioxide (22 - 30 mmol/L) 30 Anion Gap (5 - 16) 7 BUN (7 - 17 mg/dL) 11 Creatinine (0.5 - 1.0 mg/dL) 0.6 Estimated GFR (>60 ml/min) > 60 BUN/Creatinine Ratio (7 - 25 %) 18.3 Troponin I (< 0.11 ng/ml) < 0.01 Coagulation D-Dimer (70 - 232 ng/ml) 976 H Hematology CBC w Diff NO MAN DIFF REQ WBC (4.8 - 10.8 /CUMM) 6.4 RBC (4.20 - 5.40 /CUMM) 4.41 Hgb (12.0 - 16.0 G/DL) 12.7 Hct (37 - 47 %) 38.9 MCV (81.0 - 99.0 FL) 88.3 MCH (27.0 - 31.0 PG) 28.8 RDW (11.5 - 14.5 %) 14.3 Plt Count (130 - 400 /CUMM) 174 MPV (7.4 - 10.4 FL) 8.8 Gran % (42.2 - 75.2 %) 75.1 Lymphocytes % (20.5 - 51.1 %) 13.8 L Monocytes % (1.7 - 9.3 %) 9.6 H Eosinophils % (0 - 5 %) 1.2 Basophils % (0.0 - 2.0 %) 0.3 Absolute Granulocytes (1.4 - 6.5 /CUMM) 4.8 Absolute Lymphocytes (1.2 - 3.4 /CUMM) 0.9 L Absolute Monocytes (0.10 - 0.60 /CUMM) 0.6 Absolute Eosinophils (0.0 - 0.7 /CUMM) 0.1 Absolute Basophils (0.0 - 0.2 /CUMM) 0 PUBS MCHC (33.0 - 37.0 G/DL) 32.6 L 10/12 10/12 1902 1850 Blood Gas pH (7.35 - 7.45 PH) 7.47 H pCO2 (35 - 45 TORR) 39 pO2 (80 - 100 TORR) 68 L HCO3 (21 - 28 MEQ/L) 28 ABG O2 Sat (Measured) (>96.0 %) 94.0 L Carboxyhemoglobin (1.5 - 5.0 %) 0.6 L O2 Concentration % 10L O2 Delivery Method NC Chemistry Sodium (137 - 145 mmol/L) 139 Potassium (3.5 - 5.1 mmol/L) 3.2 L Chloride (98 - 107 mmol/L) 101 Carbon Dioxide (22 - 30 mmol/L) 28 Anion Gap (5 - 16) 10 BUN (7 - 17 mg/dL) 15 Creatinine (0.5 - 1.0 mg/dL) 0.7 Estimated GFR (>60 ml/min) > 60 BUN/Creatinine Ratio (7 - 25 %) 21.4 Calcium (8.4 - 10.2 mg/dL) 8.2 L Phosphorus (2.5 - 4.5 mg/dL) 2.6 Magnesium (1.6 - 2.3 mg/dL) 2.1 Troponin I (< 0.11 ng/ml) < 0.01 Albumin (3.5 - 5.0 g/dL) 2.7 L Hematology CBC w Diff NO MAN DIFF REQ WBC (4.8 - 10.8 /CUMM) 8.8 RBC (4.20 - 5.40 /CUMM) 4.60 Hgb (12.0 - 16.0 G/DL) 13.1 Hct (37 - 47 %) 40.2 MCV (81.0 - 99.0 FL) 87.5 MCH (27.0 - 31.0 PG) 28.4 RDW (11.5 - 14.5 %) 13.6 Plt Count (130 - 400 /CUMM) 197 MPV (7.4 - 10.4 FL) 8.4 Gran % (42.2 - 75.2 %) 80.2 H Lymphocytes % (20.5 - 51.1 %) 9.9 L Monocytes % (1.7 - 9.3 %) 8.7 Eosinophils % (0 - 5 %) 0.6 Basophils % (0.0 - 2.0 %) 0.6 Absolute Granulocytes (1.4 - 6.5 /CUMM) 7.0 H Absolute Lymphocytes (1.2 - 3.4 /CUMM) 0.9 L Absolute Monocytes (0.10 - 0.60 /CUMM) 0.8 H Absolute Eosinophils (0.0 - 0.7 /CUMM) 0.1 Absolute Basophils (0.0 - 0.2 /CUMM) 0.1 PUBS MCHC (33.0 - 37.0 G/DL) 32.5 L Miscellaneous Phlebotomy Draw Site LEFT RADIAL 10/12 10/12 1832 UNK Chemistry Phosphorus Cancelled Albumin Cancelled Hematology CBC w Diff Cancelled WBC Cancelled RBC Cancelled Hgb Cancelled Hct Cancelled MCV Cancelled MCH Cancelled RDW Cancelled Plt Count Cancelled MPV Cancelled PUBS MCHC Cancelled Diagnostic Data CXR Results IMPRESSION: 1. Bibasilar atelectasis. 2. Probable left lower lobe consolidation and left pleural effusion. 3. Suggestion of mild pulmonary congestive changes. Other Results CTA CHEST: FINDINGS: QUALITY OF STUDY/CONTRAST BOLUS: Satisfactory PULMONARY ARTERIES: No central or segmental pulmonary emboli. THORACIC AORTA: Atherosclerotic vascular wall calcifications of aorta. Status post aortic valve replacement. There is vascular calcification of coronary arteries. LUNG: Minimal dependent atelectasis at lung bases bilateral. Lungs are otherwise clear. The central bronchial airways are open. PLEURA: Focal pleural thickening anterior right hemithorax without calcification. MEDIASTINUM: Normal heart size. No pericardial effusion. No hilar or mediastinal lymphadenopathy. No evidence of septal bowing or right heart strain. Large hiatal hernia. CHEST WALL/AXILLA: No axillary or internal mammary lymphadenopathy. OSSEOUS STRUCTURES: Status post median sternotomy. Kyphosis of dorsal spine with multilevel degenerative spondylosis. UPPER ABDOMEN: Unremarkable. No reflux of contrast into the hepatic veins to suggest elevated right heart pressures. IMPRESSION: 1. No evidence of pulmonary embolism. No acute change of the chest. Assessment/Plan Assessment/Plan Assessment: 1. Hypoxemic respiratory failure of unclear etiology - No CHF, effusion or PE on CTA; bibasilar atelectasis noted. At the present time, there is no obvious cardiac etiology for her hypoxemia. On examination, there is no evidence of overt prosthetic valve failure. Echocardiogram is pending. Other issues such as intracardiac shunt with platypnea/orthodeoxia, etc. will hopefully be excluded by the echocardiogram. 2. Reported arrhythmia with long pauses 3. Frequent atrial and ventricular ectopy. 4. History of AVR 5. HTN 6. Hypothyroidism Recommendations: - Echocardiogram today. - Despite the presence of atrial and ventricular ectopy, there has been no further evidence of any bradyarrhythmias on the monitor since the patient has been in the ICU. Please keep the patient on the monitor. - Please check serial troponins - Monitor K+ and Mg2+ and replete as necessary -Await formal input from the pulmonary service -Further plans after the above. Consult Acknowledgment - Thank you for your consult request.
--- NOTE | 2016-10-13 08:58 | PN- Att Addend ---
See Addendum Attending Addendum Attending Brief Note There is a change in status overnight with patient requiring high flow oxygen, she has been transferred to the ICU for close observation. On evaluation this morning she remains on high flow oxygen appears lethargic. General Appearance: Lethargic Skin: Grossly normal HEENT: PEERLA Neck: Supple, No JVD Cardiovascular: Regular Rate, Normal S1, Normal S2, No Murmurs Lungs: Clear to Auscultation, Normal Air Movement Abdomen: Right quadrant pain Neurological: Normal Speech, Strength at 5/5 X4 Ext, Cranial Nerves 3-12 NL, Reflexes 2+ Extremities: No Clubbing, No Cyanosis, No Edema Vascular: Normal Pulses Assessment 86-year-old with history of diabetes, hypertension, GERD, hypothyroidism, history of CVA and aortic valve replacement, presenting with right upper quadrant pain. MRCP confirmed mild cholecystitis with choledocholithiasis for which she underwent ERCP status post balloon dilatation and sphincterotomy. She is currently status post cholecystectomy currently being followed off antibiotics. Diphtheroids and 1 out of 2 bottles likely contamination. Now requiring high flow oxygen with CTA negative. There is no evidence of pause on the telemetry. Suspect hypoxic respiratory failure is in the setting of anesthesia and Roxicodone. Plan Discontinue all pain meds and opioids Pulmonary consult Follow off antibiotics Out of bed to chair Taper oxygen as tolerated PT evaluation Continue other home medications including insulin subcutaneous DVT prophylaxis Current Medications Sig/Rajeev Start time Last Medication Dose Route Stop Time Status Admin Amlodipine Besylate 10 MG DAILY 10/11 1000 AC 10/12 PO 0916 Clopidogrel Bisulfate 75 MG DAILY 10/12 1437 AC 10/12 PO 1659 Docusate Sodium 100 MG DAILY NEEDED PRN 10/12 0230 AC 10/12 PO 0621 Enoxaparin Sodium 40 MG DAILY 10/11 1000 AC 10/12 SC 0916 Glycerin 2 SPRAY Q2P PRN 10/12 2100 CAN PO Glycerin 2 SPRAY Q2P PRN 10/10 1145 AC 10/12 PO 2154 Hydralazine HCl 25 MG ONCE ONE 10/13 0215 DC 10/13 PO 10/13 0216 0210 Insulin Aspart 0 TIDAC 10/11 1700 AC SC Levothyroxine Sodium 0.05 MG DAILY AC 10/11 0700 AC 10/13 PO 0552 Metoprolol Tartrate 25 MG BID 10/10 2200 AC 10/12 PO 0915 Morphine Sulfate 2 MG Q6P PRN 10/10 1145 AC IV Naloxone HCl 0.4 MG ONCE ONE 10/12 1944 DC IV 10/12 194 Olanzapine 2.5 MG QPM 10/10 2199 AC 10/12 PO 2153 Omeprazole 20 MG DAILY AC 10/11 0700 AC 10/13 PO 0552 Oxycodone HCl 5 MG Q6 PRN 10/10 1145 AC 10/12 PO 0636 Potassium Chloride 10 MEQ Q1H 10/12 1944 DC 10/12 IV 10/12 2045 2248 Potassium Phosphate 15 mMol ONE ONE 10/12 2199 DC 10/13 Dextrose/Water 250 ML IV 10/13 0203 0006 Senna/Docusate Sodium 2 TAB DAILY NEEDED PRN 10/12 0230 AC PO Sodium Chloride 2 SPRAY Q4P PRN 10/12 221 AC HARSHIL Tramadol HCl 25 MG Q6 PRN 10/10 1145 AC PO Laboratory Tests 10/13 10/13 10/13 0624 0425 0108 Chemistry Sodium (137 - 145 mmol/L) 136 L Potassium (3.5 - 5.1 mmol/L) 3.7 Chloride (98 - 107 mmol/L) 99 Carbon Dioxide (22 - 30 mmol/L) 30 Anion Gap (5 - 16) 7 BUN (7 - 17 mg/dL) 11 Creatinine (0.5 - 1.0 mg/dL) 0.6 Estimated GFR (>60 ml/min) > 60 BUN/Creatinine Ratio (7 - 25 %) 18.3 Total Bilirubin (0.2 - 1.3 mg/dL) Pending Direct Bilirubin (< 0.4 mg/dL) Pending AST (14 - 36 U/L) Pending ALT (9 - 52 U/L) Pending Alkaline Phosphatase (<127 U/L) Pending Troponin I (< 0.11 ng/ml) < 0.01 Total Protein (6.3 - 8.2 g/dL) Pending Albumin (3.5 - 5.0 g/dL) Pending Hematology CBC w Diff NO MAN DIFF REQ WBC (4.8 - 10.8 /CUMM) 6.4 RBC (4.20 - 5.40 /CUMM) 4.41 Hgb (12.0 - 16.0 G/DL) 12.7 Hct (37 - 47 %) 38.9 MCV (81.0 - 99.0 FL) 88.3 MCH (27.0 - 31.0 PG) 28.8 RDW (11.5 - 14.5 %) 14.3 Plt Count (130 - 400 /CUMM) 174 MPV (7.4 - 10.4 FL) 8.8 Gran % (42.2 - 75.2 %) 75.1 Lymphocytes % (20.5 - 51.1 %) 13.8 L Monocytes % (1.7 - 9.3 %) 9.6 H Eosinophils % (0 - 5 %) 1.2 Basophils % (0.0 - 2.0 %) 0.3 Absolute Granulocytes (1.4 - 6.5 /CUMM) 4.8 Absolute Lymphocytes (1.2 - 3.4 /CUMM) 0.9 L Absolute Monocytes (0.10 - 0.60 /CUMM) 0.6 Absolute Eosinophils (0.0 - 0.7 /CUMM) 0.1 Absolute Basophils (0.0 - 0.2 /CUMM) 0 PUBS MCHC (33.0 - 37.0 G/DL) 32.6 L 10/12 1902 1850 Blood Gas pH (7.35 - 7.45 PH) 7.47 H pCO2 (35 - 45 TORR) 39 pO2 (80 - 100 TORR) 68 L HCO3 (21 - 28 MEQ/L) 28 ABG O2 Sat (Measured) (>96.0 %) 94.0 L Carboxyhemoglobin (1.5 - 5.0 %) 0.6 L O2 Concentration % 10L O2 Delivery Method NC Chemistry Sodium (137 - 145 mmol/L) 139 Potassium (3.5 - 5.1 mmol/L) 3.2 L Chloride (98 - 107 mmol/L) 101 Carbon Dioxide (22 - 30 mmol/L) 28 Anion Gap (5 - 16) 10 BUN (7 - 17 mg/dL) 15 Creatinine (0.5 - 1.0 mg/dL) 0.7 Estimated GFR (>60 ml/min) > 60 BUN/Creatinine Ratio (7 - 25 %) 21.4 Calcium (8.4 - 10.2 mg/dL) 8.2 L Phosphorus (2.5 - 4.5 mg/dL) 2.6 Magnesium (1.6 - 2.3 mg/dL) 2.1 Troponin I (< 0.11 ng/ml) < 0.01 Albumin (3.5 - 5.0 g/dL) 2.7 L Coagulation D-Dimer (70 - 232 ng/ml) 976 H Hematology CBC w Diff NO MAN DIFF REQ WBC (4.8 - 10.8 /CUMM) 8.8 RBC (4.20 - 5.40 /CUMM) 4.60 Hgb (12.0 - 16.0 G/DL) 13.1 Hct (37 - 47 %) 40.2 MCV (81.0 - 99.0 FL) 87.5 MCH (27.0 - 31.0 PG) 28.4 RDW (11.5 - 14.5 %) 13.6 Plt Count (130 - 400 /CUMM) 197 MPV (7.4 - 10.4 FL) 8.4 Gran % (42.2 - 75.2 %) 80.2 H Lymphocytes % (20.5 - 51.1 %) 9.9 L Monocytes % (1.7 - 9.3 %) 8.7 Eosinophils % (0 - 5 %) 0.6 Basophils % (0.0 - 2.0 %) 0.6 Absolute Granulocytes (1.4 - 6.5 /CUMM) 7.0 H Absolute Lymphocytes (1.2 - 3.4 /CUMM) 0.9 L Absolute Monocytes (0.10 - 0.60 /CUMM) 0.8 H Absolute Eosinophils (0.0 - 0.7 /CUMM) 0.1 Absolute Basophils (0.0 - 0.2 /CUMM) 0.1 PUBS MCHC (33.0 - 37.0 G/DL) 32.5 L Miscellaneous Phlebotomy Draw Site LEFT RADIAL 10/12 10/12 1759 UNK Chemistry Phosphorus Cancelled Albumin Cancelled Hematology CBC w Diff Cancelled WBC Cancelled RBC Cancelled Hgb Cancelled Hct Cancelled MCV Cancelled MCH Cancelled RDW Cancelled Plt Count Cancelled MPV Cancelled PUBS MCHC Cancelled Vital Signs Date Time Temp Pulse Resp B/P Pulse O2 O2 Flow FiO2 Ox Delivery Rate 10/13 0822 96.8 76 24 149/72 96 Nasal 60% Cannula 10/13 0800 95 Nasal 60% Cannula 10/13 0529 98 Nasal 60% Cannula 10/13 0400 97 Nasal 60% Cannula 10/13 0210 80 23 167/77 10/13 0129 98 Nasal 60% Cannula 10/13 0054 91 Nasal Cannula 10/13 0000 94 Nasal 10L Cannula 10/12 2300 97.4 80 27 134/70 94 Nasal 10L Cannula 10/12 2210 49 20 168/82 10/13 1999 93 Nasal 10L Cannula 10/12 1928 Nasal 10L Cannula 10/12 1726 98.4 78 18 130/74 91 Nasal 4.0L Cannula 10/12 1509 98.9 76 20 145/69 92 Nasal 4.0L Cannula 10/12 0916 70 110/60 10/12 0915 70 110/16
--- NOTE | 2016-10-13 11:08 | PN- Infect Dx ---
Subjective Subjective: Afebrile. She was moved to ICU overnight because of desaturation with multiple pauses on the heart monitor. At present she reports fatigue. She also notes abdominal discomfort. Objective Last 24 Hrs of Vital Signs/I&O Vital Signs Date Time Temp Pulse Resp B/P Pulse O2 O2 Flow FiO2 Ox Delivery Rate 10/13 821 96.8 76 24 149/72 96 Nasal 60% Cannula 10/13 0800 95 Nasal 60% Cannula 10/13 0529 98 Nasal 60% Cannula 10/13 0400 97 Nasal 60% Cannula 10/13 0210 80 23 167/77 10/13 0129 98 Nasal 60% Cannula 10/13 0054 91 Nasal Cannula 10/13 0000 94 Nasal 10L Cannula 10/12 2300 97.4 80 27 134/70 94 Nasal 10L Cannula 10/12 2210 49 20 168/82 10/12 2000 93 Nasal 10L Cannula 10/12 1928 Nasal 10L Cannula 10/12 1726 98.4 78 18 130/74 91 Nasal 4.0L Cannula 10/12 1509 98.9 76 20 145/69 92 Nasal 4.0L Cannula Intake & Output 10/13 1600 10/13 0800 10/13 0000 Intake Total 310 260 Output Total 400 200 Balance -90 60 Intake, IV 250 200 Intake, Oral 60 60 Number 0 0 Bowel Movements Output, Urine 400 200 Physical Exam Other Physical Findings: She is lethargic but arousable on high flow oxygen Lungs decreased breath sounds bilaterally Heart regular rhythm with a 1/6 systolic ejection murmur Abdomen soft, tender on minimal palpation, with positive bowel sounds Extremities no cyanosis, clubbing or edema Results Last 24 Hours of Lab Results: Laboratory Tests 10/13 10/13 10/13 10/12 0624 0425 0108 1924 Chemistry Sodium (137 - 145 mmol/L) 136 L Potassium (3.5 - 5.1 mmol/L) 3.7 Chloride (98 - 107 mmol/L) 99 Carbon Dioxide (22 - 30 mmol/L) 30 Anion Gap (5 - 16) 7 BUN (7 - 17 mg/dL) 11 Creatinine (0.5 - 1.0 mg/dL) 0.6 Estimated GFR (>60 ml/min) > 60 BUN/Creatinine Ratio (7 - 25 %) 18.3 Total Bilirubin (0.2 - 1.3 mg/dL) 0.9 Direct Bilirubin (< 0.4 mg/dL) 0.5 H AST (14 - 36 U/L) 15 ALT (9 - 52 U/L) 34 Alkaline Phosphatase (<127 U/L) 94 Troponin I (< 0.11 ng/ml) < 0.01 Total Protein (6.3 - 8.2 g/dL) 5.1 L Albumin (3.5 - 5.0 g/dL) 2.6 L Coagulation D-Dimer (70 - 232 ng/ml) 976 H Hematology CBC w Diff NO MAN DIFF REQ WBC (4.8 - 10.8 /CUMM) 6.4 RBC (4.20 - 5.40 /CUMM) 4.41 Hgb (12.0 - 16.0 G/DL) 12.7 Hct (37 - 47 %) 38.9 MCV (81.0 - 99.0 FL) 88.3 MCH (27.0 - 31.0 PG) 28.8 RDW (11.5 - 14.5 %) 14.3 Plt Count (130 - 400 /CUMM) 174 MPV (7.4 - 10.4 FL) 8.8 Gran % (42.2 - 75.2 %) 75.1 Lymphocytes % (20.5 - 51.1 %) 13.8 L Monocytes % (1.7 - 9.3 %) 9.6 H Eosinophils % (0 - 5 %) 1.2 Basophils % (0.0 - 2.0 %) 0.3 Absolute Granulocytes (1.4 - 6.5 /CUMM) 4.8 Absolute Lymphocytes (1.2 - 3.4 /CUMM) 0.9 L Absolute Monocytes (0.10 - 0.60 /CUMM) 0.6 Absolute Eosinophils (0.0 - 0.7 /CUMM) 0.1 Absolute Basophils (0.0 - 0.2 /CUMM) 0 PUBS MCHC (33.0 - 37.0 G/DL) 32.6 L 10/12 10/12 1902 1850 Blood Gas pH (7.35 - 7.45 PH) 7.47 H pCO2 (35 - 45 TORR) 39 pO2 (80 - 100 TORR) 68 L HCO3 (21 - 28 MEQ/L) 28 ABG O2 Sat (Measured) (>96.0 %) 94.0 L Carboxyhemoglobin (1.5 - 5.0 %) 0.6 L O2 Concentration % 10L O2 Delivery Method NC Chemistry Sodium (137 - 145 mmol/L) 139 Potassium (3.5 - 5.1 mmol/L) 3.2 L Chloride (98 - 107 mmol/L) 101 Carbon Dioxide (22 - 30 mmol/L) 28 Anion Gap (5 - 16) 10 BUN (7 - 17 mg/dL) 15 Creatinine (0.5 - 1.0 mg/dL) 0.7 Estimated GFR (>60 ml/min) > 60 BUN/Creatinine Ratio (7 - 25 %) 21.4 Calcium (8.4 - 10.2 mg/dL) 8.2 L Phosphorus (2.5 - 4.5 mg/dL) 2.6 Magnesium (1.6 - 2.3 mg/dL) 2.1 Troponin I (< 0.11 ng/ml) < 0.01 Albumin (3.5 - 5.0 g/dL) 2.7 L Hematology CBC w Diff NO MAN DIFF REQ WBC (4.8 - 10.8 /CUMM) 8.8 RBC (4.20 - 5.40 /CUMM) 4.60 Hgb (12.0 - 16.0 G/DL) 13.1 Hct (37 - 47 %) 40.2 MCV (81.0 - 99.0 FL) 87.5 MCH (27.0 - 31.0 PG) 28.4 RDW (11.5 - 14.5 %) 13.6 Plt Count (130 - 400 /CUMM) 197 MPV (7.4 - 10.4 FL) 8.4 Gran % (42.2 - 75.2 %) 80.2 H Lymphocytes % (20.5 - 51.1 %) 9.9 L Monocytes % (1.7 - 9.3 %) 8.7 Eosinophils % (0 - 5 %) 0.6 Basophils % (0.0 - 2.0 %) 0.6 Absolute Granulocytes (1.4 - 6.5 /CUMM) 7.0 H Absolute Lymphocytes (1.2 - 3.4 /CUMM) 0.9 L Absolute Monocytes (0.10 - 0.60 /CUMM) 0.8 H Absolute Eosinophils (0.0 - 0.7 /CUMM) 0.1 Absolute Basophils (0.0 - 0.2 /CUMM) 0.1 PUBS MCHC (33.0 - 37.0 G/DL) 32.5 L Miscellaneous Phlebotomy Draw Site LEFT RADIAL 10/12 2377 Chemistry Phosphorus Cancelled Hematology CBC w Diff Cancelled WBC Cancelled RBC Cancelled Hgb Cancelled Hct Cancelled MCV Cancelled MCH Cancelled RDW Cancelled Plt Count Cancelled MPV Cancelled PUBS MCHC Cancelled Last 24 Hours of Sushil Results: Blood cultures October 08 one bottle positive for diphtheroids Blood cultures 2 October 12 negative Recent Imaging Studies: CTA of the chest October 12 reveals minimal dependent atelectasis at both lung bases, with no evidence of pulmonary embolism Assessment/Plan Impression: Respiratory failure, now requiring high flow oxygen, of unclear etiology with no evidence of pneumonia, pulmonary embolism or congestive heart failure. She remains afebrile with white blood cell count normal off antibiotics. Her positive blood culture has been identified as a diphtheroids, which presumably represents a contaminant and does not require treatment. Suggestion: 1. Await Pulmonary evaluation 2. Continue to follow off antibiotics
--- NOTE | 2016-10-13 11:27 | PN- General Surgery ---
Surgical Brief Attending Note Brief Attending Note: Patient become acutely hypoxemic. Question aspiration per ICU team. Concern for pneumonia and/or atelectasis. No evidence of PE on CT angiogram. From my perspective she can eat and ambulate and be discharged to rehabilitation when her hypoxemia has resolved. Any questions can be relayed to Isiah Diez MD will be covering in my absence.
--- NOTE | 2016-10-13 14:58 | NUR ---
PHYSICAL THERAPY- PT TRANSFERRED TO ICU W/ RESP DISTRESS. WILL DISCONTINUE P.T. AT THIS TIME. PLEASE RECONSULT ONCE PT MEDICALLY STABLE AND APPROPRIATE.
[2016-10-13 16:00] VITALS: BP 144/70
--- NOTE | 2016-10-13 17:19 | ECHOCARDIOGRAM REPORT ---
SRAVANTHI PARIKH Age: 86 : 1930 Gender: F Exam Date: 10/13/2016 11:10 Exam Location: [facility] Ht (in): 60 Wt (lb): 150 BSA: 1.72 BP: 131 / 59 Ordering Physician: CASEY CLINE MD Referring Physician: CASEY CLINE MD Technologist: Dolores Villegas Room Number: 111 Indications: ARRHYTHMIAS Rhythm: Sinus Technical Quality: Poor, Technically difficult study FINDINGS Left Ventricle Left ventricle not well visualized, grossly normal. No obvious regional wall motion abnormalities. Normal size left ventricle. Borderline normal left ventricular ejection fraction estimated at 50-55%. Right Ventricle Right ventricle not well visualized, grossly normal. Right Atrium Normal right atrial size. Left Atrium Moderate left atrial dilatation. Mitral Valve Mild thickening/calcification of the anterior mitral valve leaflet. Moderate mitral annular calcification. [id number] mitral regurgitation. 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 The valve was not well visualized anatomically Tricuspid Valve Tricuspid valve not well visualized. [id number] tricuspid regurgitation. Right ventricular systolic pressure estimated at 40 mmHg. Pulmonic Valve Pulmonic valve not well visualized. Pericardium No pericardial effusion. Great Vessels Aortic root and proximal ascending aorta not well visualized. CONCLUSIONS 1. This was a technically difficult and limited examination due to the patient's body habitus. 2. 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 The valve was not well visualized anatomically. The peak gradient across the aortic outflow tract is 13 mmHg. 3. Thickening and calcification of the mitral leaflets is present with moderate anular calcification and mild to moderate mitral insufficiency with moderate left atrial enlargement. 4. There is no obvious pericardial fluid present. 5. The left ventricular chamber size and systolic function appear normal. Accurate wall motion assessment was not possible. Mild diastolic dysfunction is present 6. The right heart structures were not optimally visualized. Mild to moderate tricuspid insufficiency is present with no evidence of significant pulmonary hypertension. Tiffany Vilchis M.D. (Electronically Signed) Final Date: 13 October 2016 17:18 MEASUREMENTS (Male / Female) Normal Values 2D ECHO LV Diastolic Diameter PLAX 2.6 cm 4.2 - 5.9 / 3.9 - 5.3 cm LV Systolic Diameter PLAX 2.2 cm 2.1 - 4.0 cm LV Fractional Shortening PLAX 15.4 % 25 - 46 % LV Ejection Fraction 2D Teich 34.1 % IVS Diastolic Thickness 0.9 cm LVPW Diastolic Thickness 0.9 cm LV Relative Wall Thickness 0.7 RV Internal Dim ED PLAX 2.5 cm 1.9 - 3.8 cm LVOT Diameter 1.7 cm LA Systolic Diameter LX 4.8 cm 3.0 - 4.0 / 2.7 - 3.8 cm LA Volume 51.0 cm 18 - 58 / 22 - 52 cm DOPPLER AV Peak Velocity 178.0 cm/s AV Peak Gradient 12.7 mmHg AV Mean Velocity 130.0 cm/s AV Mean Gradient 8.0 mmHg AV Velocity Time Integral 33.3 cm LVOT Peak Velocity 106.0 cm/s LVOT Peak Gradient 4.5 mmHg LVOT Mean Velocity 76.2 cm/s LVOT Mean Gradient 3.0 mmHg LVOT Velocity Time Integral 21.2 cm LVOT Stroke Volume 48.1 cm AV Area Cont Eq vti 1.4 cm AV Area Cont Eq pk 1.4 cm MV Peak Velocity 145.0 cm/s MV Peak Gradient 8.4 mmHg MV Mean Velocity 89.3 cm/s MV Mean Gradient 4.0 mmHg Mitral E Point Velocity 87.4 cm/s Mitral A Point Velocity 115.0 cm/s Mitral E to A Ratio 0.8 MV PHT Velocity 128.0 cm/s MV Deceleration Kings 449.0 cm/s MV Pressure Half Time 85.5 ms MV Area PHT 2.6 cm MV Deceleration Time 338.0 ms MR Peak Velocity 567.0 cm/s MR Peak Gradient 128.6 mmHg TR Peak Velocity 260.0 cm/s TR Peak Gradient 27.0 mmHg Right Atrial Pressure 10.0 mmHg Pulmonary Artery Systolic Pressu 37.0 mmHg Right Ventricular Systolic Press 37.0 mmHg LV E' Lateral Velocity 6.0 cm/s Mitral E to LV E' Lateral Ratio 14.5 LV E' Septal Velocity 6.3 cm/s Mitral E to LV E' Septal Ratio 13.8
--- NOTE | 2016-10-13 17:47 | RADIOLOGY REPORT ---
EXAMINATION: XR MODIFIED BARIUM SWALLOW CLINICAL INFORMATION: Difficulty breathing. Evidence of hiatal hernia on CT scan. Evaluate for possible aspiration. COMPARISON: CTA of the chest dated 10/12/2016. TECHNIQUE: A modified barium swallow was performed with speech pathologist in attendance. Pur?e, nectar thick, thin, bread, and cracker consistencies were given to the patient and the swallowing mechanism was observed fluoroscopically with 10 spot films taken using the last image hold feature. FLUOROSCOPY TIME: 1 minute 40 seconds. FINDINGS: With all consistencies, the oropharyngeal phase of swallowing is normal with no laryngeal or nasopharyngeal aspiration seen. There is premature spillage of contrast into the piriform sinuses with all consistencies and undercoating of the epiglottis with all consistencies. With thin liquid barium, transient penetration of contrast to above the level of the vocal cords is seen on 2 or 3 occasions without eliciting a cough reflex. IMPRESSION: 1. Transient penetration of contrast to above the level of the vocal cords is seen with thin liquid barium without eliciting a cough reflex. 2. Undercoating of the epiglottis seen with all other consistencies. 3. Mildly disordered oropharyngeal phase of swallowing with premature spillage of contrast into the piriform sinuses. 4. Speech pathologist assessment issued separately.
--- NOTE | 2016-10-13 17:55 | RADIOLOGY REPORT ---
EXAMINATION: XR PORTABLE CHEST CLINICAL INFORMATION: Worsening of breathing and increasing O2 requirements. History of aortic valve replacement. Crackles on physical exam. Presumptive diagnosis of pleural effusion. COMPARISON: Several prior chest x-rays, most recent of which is dated 10/12/2016. CTA of the chest dated 10/12/2016. TECHNIQUE: Portable AP upright view of the chest was obtained. FINDINGS: The patient is status post median sternotomy and aortic valve replacement. Ectasia and tortuosity of the aorta is seen. The cardiomediastinal silhouette is enlarged, unchanged. There are persistent increased reticular opacities seen in the lung bases bilaterally, unchanged, consistent with subsegmental atelectasis. There is lobulated pleural plaque seen along the lateral chest lowe bilaterally. A retrocardiac hiatal hernia is noted. Bony structures are grossly unremarkable. IMPRESSION: 1. Unchanged appearance of the chest with mild bibasilar subsegmental atelectasis and bilateral pleural plaques. 2. Large retrocardiac hiatal hernia.
--- NOTE | 2016-10-13 22:24 | NUR ---
AVSS.A/OX3.FOLLOW COMMANDS.NO C'O GEN DISCOMFORT. LUNG SOUNDS DIMINISHED AND WEANED HIGH FLOW NC TO 4L O2 WITH SATS >92%.HOB ELEVATED. BETH PO WELL.PLAN OF CARE REVIEWED.
--- NOTE | 2016-10-13 23:55 | NUR ---
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
[2016-10-14] VITALS: BP 140/84
[2016-10-14 05:34] LABS: ABSOLUTE BASOPHIL COUNT 0 /CUMM (0.0-0.2); ABSOLUTE EOSINOPHIL COUNT 0.3 /CUMM (0.0-0.7); ABSOLUTE GRANULOCYTE CT 4.1 /CUMM (1.4-6.5); ABSOLUTE LYMPH COUNT 0.9 /CUMM (1.2-3.4); ABSOLUTE MONOCYTE COUNT 0.7 /CUMM (0.10-0.60); BASOPHIL % 0 % (0.0-2.0); EOSINOPHIL % 4.6 % (0-5); GRANULOCYTE % 68.8 % (42.2-75.2); HEMATOCRIT 38.5 % (37-47); MEAN CORPUSCULAR HGB 28.8 PG (27.0-31.0); MEAN CORPUSCULAR HGB CONC 32.7 G/DL (33.0-37.0); MEAN CORPUSCULAR VOLUME 88.1 FL (81.0-99.0); MEAN PLATELET VOLUME 8.3 FL (7.4-10.4); PLATELET COUNT 197 /CUMM (130-400); RBC DISTRIBUTION WIDTH 14.4 % (11.5-14.5); RED BLOOD CELL CT 4.36 /CUMM (4.20-5.40)
[2016-10-14 05:43] LABS: PT 11.4 SEC (9.4-12.5); PTT 32 SEC (25-37)
--- NOTE | 2016-10-14 07:29 | PN- Resident CRCU ---
Subjective HPI/CRCU Issues: Ms Britton is a 86 lady with PMH significant for DM type 2, HTN, GERD, hypothyroidism, CVA, aortic valve replacement, anxiety, Schatzki's ring s/p surgery correction, appendectomy, and hysterectomy who presented to the ED with RUQ abdominal pain of one week with episodes of nonbloody watery diarrhea on 01/2017. Abdominal CT revealed mild intrahepatic biliary ductal dilatation and MRI indicated multiple gallstones; she underwent ERCP on the same day with sphincterotomy and removal of common bile duct stones. This was followed by a cholecystectomy two days later on 10/10/16. Patient was on general medicine floor until yesterday evening when she was found to be desaturating to 88% on 4L oxygen per NC and with changes in mentation with confusion and lethargy, she also reportedly had pauses on the monitoring analyst, however no records are available. Patient was transferred to the ICU for close monitoring. Yesterday morning she was on high flow O2 (60%), we have been tapering down oxygen and doing incentive spirometry since yesterday. CXR repeat last night showed improvement of atelectasis. Today morning she is down to 5L through NC, breathing comfortably and is not in any distress, alert and oriented. Reports pain in the abdomen only when sneezes or coughs. Patient had a 3 second period of bradycardia (HR down to 40s) overnight on the monitor last night 24 Hour Events: Laboratory Tests 10/14 0500 Chemistry Sodium (137 - 145 mmol/L) 141 Potassium (3.5 - 5.1 mmol/L) 3.8 Chloride (98 - 107 mmol/L) 102 Carbon Dioxide (22 - 30 mmol/L) 29 Anion Gap (5 - 16) 9 BUN (7 - 17 mg/dL) 11 Creatinine (0.5 - 1.0 mg/dL) 0.6 Estimated GFR (>60 ml/min) > 60 Glucose (65 - 99 mg/dL) 111 H Calcium (8.4 - 10.2 mg/dL) 8.1 L Phosphorus (2.5 - 4.5 mg/dL) 3.6 Magnesium (1.6 - 2.3 mg/dL) 2.3 Total Bilirubin (0.2 - 1.3 mg/dL) 0.6 AST (14 - 36 U/L) 12 L ALT (9 - 52 U/L) 34 Albumin (3.5 - 5.0 g/dL) 2.5 L Coagulation PT (9.4 - 12.5 SEC) 11.4 INR (0.90 - 1.19) 1.09 APTT (25 - 37 SEC) 32 Hematology CBC w Diff NO MAN DIFF REQ WBC (4.8 - 10.8 /CUMM) 6.0 RBC (4.20 - 5.40 /CUMM) 4.36 Hgb (12.0 - 16.0 G/DL) 12.6 Hct (37 - 47 %) 38.5 MCV (81.0 - 99.0 FL) 88.1 MCH (27.0 - 31.0 PG) 28.8 RDW (11.5 - 14.5 %) 14.4 Plt Count (130 - 400 /CUMM) 197 MPV (7.4 - 10.4 FL) 8.3 Gran % (42.2 - 75.2 %) 68.8 Lymphocytes % (20.5 - 51.1 %) 14.4 L Monocytes % (1.7 - 9.3 %) 12.2 H Eosinophils % (0 - 5 %) 4.6 Basophils % (0.0 - 2.0 %) 0 L Absolute Granulocytes (1.4 - 6.5 /CUMM) 4.1 Absolute Lymphocytes (1.2 - 3.4 /CUMM) 0.9 L Absolute Monocytes (0.10 - 0.60 /CUMM) 0.7 H Absolute Eosinophils (0.0 - 0.7 /CUMM) 0.3 Absolute Basophils (0.0 - 0.2 /CUMM) 0 PUBS MCHC (33.0 - 37.0 G/DL) 32.7 L Vital Signs Date Time Temp Pulse Resp B/P Pulse O2 O2 Flow FiO2 Ox Delivery Rate 10/14 0921 74 149/67 10/14 0921 74 149/67 10/14 0800 96.3 72 23 130/72 96 Nasal 5.0L Cannula 10/14 0748 96 Nasal 5.0L Cannula 10/14 0400 92 Nasal 5.0L Cannula 10/14 0000 97 Nasal 5.0L Cannula 10/14 0000 98.4 73 24 140/84 97 Nasal 5.0L Cannula 10/133 94 Nasal 45% Cannula 10/13 1622 Nasal 4.0L Cannula 10/13 1600 95 Nasal 50% Cannula 10/13 1600 97.0 74 28 144/70 95 Nasal 50% Cannula 10/13 1359 94 Nasal 55% Cannula 10/13 1200 97 Nasal 50% Cannula Intake & Output 10/14 1600 10/14 0800 10/14 0000 Intake Total 50 220 Output Total 150 600 Balance -100 -380 Intake, Oral 50 220 Number 0 2 Bowel Movements Output, Urine 150 600 Objective Vital Signs & I&O Last 8 Hrs of Vitals and I&O: T max 98.4 BP systolic 100-174 BP diastolic 67-78 HR 62-73 RR 18-24, 5L NC 93-97% I 50 O 150 Exam General Appearance: well developed/nourished, no apparent distress, alert Head: atraumatic, normal appearance Ears, Nose, Throat: normal ENT inspection Neck: supple Respiratory: chest non-tender, no respiratory distress, quiet respiration, decreased breath souds, no wheezing no rhonchi Cardiovascular: regular rate/rhythm Gastrointestinal: soft, non-tender Current Medications: Current Medications Sig/Rajeev Start time Last Medication Dose Route Stop Time Status Admin Amlodipine Besylate 10 MG DAILY 10/11 1000 AC 10/14 PO 0921 Clopidogrel Bisulfate 75 MG DAILY 10/12 1437 AC 10/14 PO 0921 Docusate Sodium 100 MG DAILY NEEDED PRN 10/12 0230 AC 10/12 PO 0621 Enoxaparin Sodium 40 MG DAILY 10/11 1000 AC 10/14 SC 0921 Glycerin 2 SPRAY Q2P PRN 10/10 1145 AC 10/12 PO 2154 Insulin Aspart 0 TIDAC 10/11 1700 AC 10/14 SC 1431 Levothyroxine Sodium 0.05 MG DAILY AC 10/11 0700 AC 10/14 PO 0614 Metoprolol Tartrate 25 MG BID 10/10 2200 AC 10/14 PO 0921 Morphine Sulfate 2 MG Q6P PRN 10/10 1145 AC IV Olanzapine 2.5 MG QPM 10/10 2200 AC 10/13 PO 2159 Omeprazole 20 MG DAILY AC 10/11 0700 AC 10/14 PO 0614 Oxycodone HCl 5 MG Q6 PRN 10/10 1145 DC 10/12 PO 0636 Potassium Chloride 20 MEQ DAILY 10/13 1730 AC 10/14 PO 0921 Senna/Docusate Sodium 2 TAB DAILY NEEDED PRN 10/12 0230 AC PO Sodium Chloride 2 SPRAY Q4P PRN 10/12 2215 AC HARSHIL Tramadol HCl 25 MG Q6 PRN 10/10 1145 AC PO Impression/Plan Impression/Problem List Impression: Ms Britton is a 86 lady with PMH significant for DM type 2, HTN, GERD, hypothyroidism, CVA, aortic valve replacement, anxiety, Schatzki's ring s/p surgery correction, appendectomy, and hysterectomy who presented to the ED with RUQ abdominal pain of one week with episodes of nonbloody watery diarrhea on 01/2017. She underwent ERCP with sphincterotomy and removal of common bile duct stones, followed by a cholecystectomy two days later on 10/10/16. On 10/12/2016 in he evening the patient was found to be desaturating to 88% on 4L oxygen per NC and with changes in mentation with confusion and lethargy, she also reportedly had pauses on the monitoring analyst. Patient was transferred to the ICU for close monitoring. Problem list and plan: Respiratory - Acute hypoxic respiratory failure, was on high flow oxygen with 60% FiO2 yesterday -CTA of the chest revealed large hiatal hernia, no evidence of a PE, minimal dependent atelectasis at lung bases bilaterally. Patient also has severe kyphosis that restricts lung expansion, in addition to the abdominal pain post cholecystectomy * saturating now on 4L NC * continue on O2 supplementation to keep SO2>92% * continue incentive spirometry Cardiovascular - Episode of pause in the monitor last night, no similar episode or bradyarrhythmia since moving to ICU. No chest pain or palpitations, no dizziness. history of aortic valve replacement. EKG: NSR, rate 82, LBBB. troponin (-)x3 . no further episodes has happened * cardiac monitoring * cardiology consult placed, appreciated recommendations * continue metoprolol 25 mg BID - History of CVA * continue plavix 75 daily - HTN * Amlodipine 10 mg daily and metoprolol 25 mg BID ID - Positive blood culture * Diphtheroids, possibly contamination * watch off ABx * monitor for fever abd repeat CBC in am GI - Abdominal pain s/p cholecystectomy * reports abdominal pain with coughing and deep breaths. diet has started on the patient. * Dulcolax suppository was given yesterday, patient had bowel movement last night * Continue bowel regimen including colace and senokot * Control mild pain with tramadol, moderate pain with oxycodone, severe pain with morphine. * GI and surgery recommendations appreciated - GERD * omeprazole 40 mg daily Endocrine - DM, hypothyroidism * Accuchecks and novolog insulin SS * levothyroxine 0.05 mg daily Alimentary - Diet * modified barium swallow ordered given large hiatal hernia and possible risk of aspiration * she is on regular diet, changed to chopped and nectar thick liquids Pain * will control mild pain, tramadol. moderate pain, oxycodone, severe pain morphine. DVT px * SC lovenox FULL code Problem List: 1. Abdominal pain 2. Status post cholecystectomy 3. Acute respiratory failure with hypoxia 4. Atelectasis 5. Hiatal hernia Pain Ratin Tomorrow's Labs & Rationales: BEP, Mg (monitor electrolytes) Plan DVT/Prophylaxis: mechanical, pharmacological Code Status: Full Code
[2016-10-14 08:00] VITALS: BP 130/72
--- NOTE | 2016-10-14 08:12 | RADIOLOGY REPORT ---
EXAMINATION: XR PORTABLE CHEST CLINICAL INFORMATION: Worsening breathing. Increased oxygen requirement. History of aortic valve replacement. COMPARISON: CXR from 10/13/2016. TECHNIQUE: Portable AP view of the chest was obtained. FINDINGS: Patient is rotated to the left. Lungs are hypoinflated and without acute edema. Linear opacities of discoid atelectasis in each lung. Also, mild atelectasis is present in the medial left lower lobe adjacent to the hiatal hernia. Aortic valve is replaced. Mild cardiomegaly. Atherosclerotic calcification of the aorta. Bone density appears diffusely decreased. Dextroscoliosis of thoracic spine. Mild osteoarthritis of glenohumeral joints. IMPRESSION: 1. Cardiomegaly without acute pulmonary edema. 2. Pulmonary hypoinflation and persistent mild atelectasis in each lung. No acute pulmonary findings compared to the prior radiograph.
--- NOTE | 2016-10-14 08:33 | NUR ---
0630 PATIENT HAS SLEPT WELL OVERNIGHT, REMAINS WELL ORIENTED TO SURROUNDINGS, DENIES NEED FOR PAIN MED- DOES STATE ABDOMEN TENDER WITH MOVING AND TURNING BUT DISCOMFORT STOPS WHEN MOVEMENT STOPS, DR SHEPHERD HAS VIEWED MONITOR STRIP SHOWING SHORT (1+ SECOND)- THESE SEEM TO OCCUR WHEN O2 SAT DECREASES TO 90 TO 92% FOR PERIODS < 30 SECONDS- ? SCOTT, PATIENT RESTING QUIETLY, AWAITING AM MD ROUNDS
--- NOTE | 2016-10-14 09:25 | PN- Att Addend ---
Attending Addendum Attending Brief Note Patient oxygen requirement improved and she is awake and alert. General Appearance: Awake and alert Skin: Grossly normal HEENT: PEERLA Neck: Supple, No JVD Cardiovascular: Regular Rate, Normal S1, Normal S2, No Murmurs Lungs: Clear to Auscultation, Normal Air Movement Abdomen: Right quadrant pain Neurological: Normal Speech, Strength at 5/5 X4 Ext, Cranial Nerves 3-12 NL, Reflexes 2+ Extremities: No Clubbing, No Cyanosis, No Edema Vascular: Normal Pulses Assessment 86-year-old with history of diabetes, hypertension, GERD, hypothyroidism, history of CVA and aortic valve replacement, presenting with right upper quadrant pain. MRCP confirmed mild cholecystitis with choledocholithiasis for which she underwent ERCP status post balloon dilatation and sphincterotomy. She is currently status post cholecystectomy currently being followed off antibiotics. Diphtheroids and 1 out of 2 bottles likely contamination. Now requiring high flow oxygen with CTA negative. Suspect hypoxic respiratory failure is in the setting of Roxicodone vs pain. Her oxygen requirements have improved. Plan Discontinue oxycodone Morphine 3 mg every 6 hour when necessary pain Incentive spirometry Out of bed to chair Follow off antibiotics Taper oxygen as tolerated PT evaluation Continue other home medications including insulin subcutaneous DVT prophylaxis Current Medications Sig/Rajeev Start time Last Medication Dose Route Stop Time Status Admin Amlodipine Besylate 10 MG DAILY 10/11 1000 AC 10/13 PO 0959 Bisacodyl 10 MG ONCE ONE 10/13 1100 DC 10/13 NM 10/13 1101 1230 Clopidogrel Bisulfate 75 MG DAILY 10/12 1437 AC 10/13 PO 0959 Docusate Sodium 100 MG DAILY NEEDED PRN 10/12 0230 AC 10/12 PO 0621 Enoxaparin Sodium 40 MG DAILY 10/11 1000 AC 10/13 SC 1000 Glycerin 2 SPRAY Q2P PRN 10/10 1145 AC 10/12 PO 2154 Insulin Aspart 0 TIDAC 10/11 1700 AC SC Levothyroxine Sodium 0.05 MG DAILY AC 10/11 0700 AC 10/14 PO 0614 Metoprolol Tartrate 25 MG BID 10/10 2200 AC 10/13 PO 2159 Morphine Sulfate 2 MG Q6P PRN 10/10 1145 AC IV Olanzapine 2.5 MG QPM 10/10 2200 AC 10/13 PO 2159 Omeprazole 20 MG DAILY AC 04/10 0700 AC 10/14 PO 0614 Oxycodone HCl 5 MG Q6 PRN 10/10 1145 DC 10/12 PO 0636 Potassium Chloride 20 MEQ DAILY 10/13 1730 AC 10/13 PO 1728 Senna/Docusate Sodium 2 TAB DAILY NEEDED PRN 10/12 0230 AC PO Sodium Chloride 2 SPRAY Q4P PRN 10/12 2215 AC HARSHIL Tramadol HCl 25 MG Q6 PRN 10/10 1145 AC PO Laboratory Tests 10/14 0500 Chemistry Sodium (137 - 145 mmol/L) 141 Potassium (3.5 - 5.1 mmol/L) 3.8 Chloride (98 - 107 mmol/L) 102 Carbon Dioxide (22 - 30 mmol/L) 29 Anion Gap (5 - 16) 9 BUN (7 - 17 mg/dL) 11 Creatinine (0.5 - 1.0 mg/dL) 0.6 Estimated GFR (>60 ml/min) > 60 Glucose (65 - 99 mg/dL) 111 H Calcium (8.4 - 10.2 mg/dL) 8.1 L Phosphorus (2.5 - 4.5 mg/dL) 3.6 Magnesium (1.6 - 2.3 mg/dL) 2.3 Total Bilirubin (0.2 - 1.3 mg/dL) 0.6 AST (14 - 36 U/L) 12 L ALT (9 - 52 U/L) 34 Albumin (3.5 - 5.0 g/dL) 2.5 L Coagulation PT (9.4 - 12.5 SEC) 11.4 INR (0.90 - 1.19) 1.09 APTT (25 - 37 SEC) 32 Hematology CBC w Diff NO MAN DIFF REQ WBC (4.8 - 10.8 /CUMM) 6.0 RBC (4.20 - 5.40 /CUMM) 4.36 Hgb (12.0 - 16.0 G/DL) 12.6 Hct (37 - 47 %) 38.5 MCV (81.0 - 99.0 FL) 88.1 MCH (27.0 - 31.0 PG) 28.8 RDW (11.5 - 14.5 %) 14.4 Plt Count (130 - 400 /CUMM) 197 MPV (7.4 - 10.4 FL) 8.3 Gran % (42.2 - 75.2 %) 68.8 Lymphocytes % (20.5 - 51.1 %) 14.4 L Monocytes % (1.7 - 9.3 %) 12.2 H Eosinophils % (0 - 5 %) 4.6 Basophils % (0.0 - 2.0 %) 0 L Absolute Granulocytes (1.4 - 6.5 /CUMM) 4.1 Absolute Lymphocytes (1.2 - 3.4 /CUMM) 0.9 L Absolute Monocytes (0.10 - 0.60 /CUMM) 0.7 H Absolute Eosinophils (0.0 - 0.7 /CUMM) 0.3 Absolute Basophils (0.0 - 0.2 /CUMM) 0 PUBS MCHC (33.0 - 37.0 G/DL) 32.7 L Vital Signs Date Time Temp Pulse Resp B/P Pulse O2 O2 Flow FiO2 Ox Delivery Rate 10/14 0800 96.3 72 23 130/72 96 Nasal 5.0L Cannula 10/14 0748 96 Nasal 5.0L Cannula 10/14 0400 92 Nasal 5.0L Cannula 10/14 0000 97 Nasal 5.0L Cannula 10/14 0000 98.4 73 24 140/84 97 Nasal 5.0L Cannula 10/13 2043 94 Nasal 45% Cannula 10/13 1622 Nasal 4.0L Cannula 10/13 1600 95 Nasal 50% Cannula 10/13 1600 97.0 74 28 144/70 95 Nasal 50% Cannula 10/13 1359 94 Nasal 55% Cannula 10/13 1200 97 Nasal 50% Cannula
--- NOTE | 2016-10-14 10:57 | PN- CRCU ---
Subjective HPI/Critical Care Issues: pt seen and examined comfortable off high flow o2 on 5LNC feeling better monitored on tele Objective Current Medications: Current Medications Sig/Rajeev Start time Last Medication Dose Route Stop Time Status Admin Amlodipine Besylate 10 MG DAILY 10/11 1000 AC 10/14 PO 0921 Bisacodyl 10 MG ONCE ONE 10/13 1100 DC 10/13 NE 10/13 1101 1230 Clopidogrel Bisulfate 75 MG DAILY 10/12 1437 AC 10/14 PO 0921 Docusate Sodium 100 MG DAILY NEEDED PRN 10/12 0230 AC 10/12 PO 0621 Enoxaparin Sodium 40 MG DAILY 10/11 1000 AC 10/14 SC 0921 Glycerin 2 SPRAY Q2P PRN 10/10 1145 AC 10/12 PO 2154 Insulin Aspart 0 TIDAC 10/11 1700 AC SC Levothyroxine Sodium 0.05 MG DAILY AC 10/11 0700 AC 10/14 PO 0614 Metoprolol Tartrate 25 MG BID 10/10 2200 AC 10/14 PO 0921 Morphine Sulfate 2 MG Q6P PRN 10/10 1145 AC IV Olanzapine 2.5 MG QPM 10/10 2200 AC 10/13 PO 2159 Omeprazole 20 MG DAILY AC 10/11 0700 AC 10/14 PO 0614 Oxycodone HCl 5 MG Q6 PRN 10/10 1145 DC 10/12 PO 0636 Potassium Chloride 20 MEQ DAILY 10/13 1730 AC 10/14 PO 0921 Senna/Docusate Sodium 2 TAB DAILY NEEDED PRN 10/12 0230 AC PO Sodium Chloride 2 SPRAY Q4P PRN 10/12 2215 AC HARSHIL Tramadol HCl 25 MG Q6 PRN 10/10 1145 AC PO Vital Signs & I&O Last 24 Hrs of Vitals and I&O: Vital Signs Date Time Temp Pulse Resp B/P Pulse O2 O2 Flow FiO2 Ox Delivery Rate 10/14 0921 74 149/67 10/14 0921 74 149/67 10/14 0800 96.3 72 23 130/72 96 Nasal 5.0L Cannula 10/14 0748 96 Nasal 5.0L Cannula 10/14 0400 92 Nasal 5.0L Cannula 10/14 0000 97 Nasal 5.0L Cannula 10/14 0000 98.4 73 24 140/84 97 Nasal 5.0L Cannula 10/13 2043 94 Nasal 45% Cannula 10/13 1622 Nasal 4.0L Cannula 10/13 1600 95 Nasal 50% Cannula 10/13 1600 97.0 74 28 144/70 95 Nasal 50% Cannula 10/13 1359 94 Nasal 55% Cannula 10/13 1200 97 Nasal 50% Cannula Intake & Output 10/14 1600 10/14 0800 10/14 0000 Intake Total 50 220 Output Total 150 600 Balance -100 -380 Intake, Oral 50 220 Number 0 2 Bowel Movements Output, Urine 150 600 Exam Other Physical Findings: gen awake and alert heent ncat cvs s1, s2 lungs rare rhonchi bibasilar abd soft, bs+ ext without edema Results Last 24 Hrs of Lab Results: Laboratory Tests 10/14/16 0500: Anion Gap 9, Estimated GFR > 60, Glucose 111 H, Calcium 8.1 L, Phosphorus 3.6, Magnesium 2.3, Total Bilirubin 0.6, AST 12 L, ALT 34, Albumin 2.5 L, PT 11.4, INR 1.09, APTT 32, CBC w Diff NO MAN DIFF REQ, RBC 4.36, MCV 88.1, MCH 28.8, RDW 14.4, MPV 8.3, Gran % 68.8, Lymphocytes % 14.4 L, Monocytes % 12.2 H, Eosinophils % 4.6, Basophils % 0 L, Absolute Granulocytes 4.1, Absolute Lymphocytes 0.9 L, Absolute Monocytes 0.7 H, Absolute Eosinophils 0.3, Absolute Basophils 0, PUBS MCHC 32.7 L Impression/Plan Impression/Plan Impression/Plan: Impression 86-year-old woman * Postoperative respiratory failure and hypoxemia likely secondary to hypoinflation requiring high flow oxygen, all likely related to atelectasis * Arrhythmia with long pauses and atrial and ventricular ectopy * History of aVR * Hypertension and hypothyroidism Plan Respiratory -Reduce FiO2 requirements as tolerated to maintain oxygen saturation above 92% -Incentive spirometry coupled with pain control judiciously -No evidence of pulmonary emboli, no effusions or congestion ID -Diphtheroids and the blood possibly contaminants per primary team -Monitor white count and fevers CVS -Cardiology consultation with Dr. Vilchis -Continue Plavix -Medication adjustments will be performed by cardiology -Hemodynamic monitoring -Arrhythmia monitoring/telemetry monitoring Heme -Monitor coags and H&H Metabolic -Monitor electrolytes including magnesium phosphate and potassium. Replete as needed -Monitor ins and outs Alimentary -Per surgery, surgical and GI follow-up Neuro -History of CVA no active issues at this time DVT prophylaxis at all times TTS 35 min IST at least 10 times daily Okay with tele DG if okay with cardiology Code Status: Full Code
--- NOTE | 2016-10-14 11:07 | PN- Infect Dx ---
Subjective Subjective: Afebrile without complaints Objective Last 24 Hrs of Vital Signs/I&O Vital Signs Date Time Temp Pulse Resp B/P Pulse O2 O2 Flow FiO2 Ox Delivery Rate 10/14 09 74 149/67 10/14 0921 74 149/67 10/14 0800 96.3 72 23 130/72 96 Nasal 5.0L Cannula 10/14 0748 96 Nasal 5.0L Cannula 10/14 0400 92 Nasal 5.0L Cannula 10/14 0000 97 Nasal 5.0L Cannula 10/14 0000 98.4 73 24 140/84 97 Nasal 5.0L Cannula 10/13 2043 94 Nasal 45% Cannula 10/13 1622 Nasal 4.0L Cannula 10/13 1600 95 Nasal 50% Cannula 10/13 1600 97.0 74 28 144/70 95 Nasal 50% Cannula 10/13 1359 94 Nasal 55% Cannula 10/13 1200 97 Nasal 50% Cannula Intake & Output 10/14 1600 10/14 0800 10/14 0000 Intake Total 50 220 Output Total 150 600 Balance -100 -380 Intake, Oral 50 220 Number 0 2 Bowel Movements Output, Urine 150 600 Physical Exam Other Physical Findings: She appears comfortable, with no obvious respiratory distress Lungs bibasilar crackles Heart regular rhythm with 2/6 systolic murmur Abdomen is soft, mildly tender on palpation on the right, with no guarding or rebound, positive bowel sounds Extremities no cyanosis, clubbing or edema Results Last 24 Hours of Lab Results: Laboratory Tests 10/14 0500 Chemistry Sodium (137 - 145 mmol/L) 141 Potassium (3.5 - 5.1 mmol/L) 3.8 Chloride (98 - 107 mmol/L) 102 Carbon Dioxide (22 - 30 mmol/L) 29 Anion Gap (5 - 16) 9 BUN (7 - 17 mg/dL) 11 Creatinine (0.5 - 1.0 mg/dL) 0.6 Estimated GFR (>60 ml/min) > 60 Glucose (65 - 99 mg/dL) 111 H Calcium (8.4 - 10.2 mg/dL) 8.1 L Phosphorus (2.5 - 4.5 mg/dL) 3.6 Magnesium (1.6 - 2.3 mg/dL) 2.3 Total Bilirubin (0.2 - 1.3 mg/dL) 0.6 AST (14 - 36 U/L) 12 L ALT (9 - 52 U/L) 34 Albumin (3.5 - 5.0 g/dL) 2.5 L Coagulation PT (9.4 - 12.5 SEC) 11.4 INR (0.90 - 1.19) 1.09 APTT (25 - 37 SEC) 32 Hematology CBC w Diff NO MAN DIFF REQ WBC (4.8 - 10.8 /CUMM) 6.0 RBC (4.20 - 5.40 /CUMM) 4.36 Hgb (12.0 - 16.0 G/DL) 12.6 Hct (37 - 47 %) 38.5 MCV (81.0 - 99.0 FL) 88.1 MCH (27.0 - 31.0 PG) 28.8 RDW (11.5 - 14.5 %) 14.4 Plt Count (130 - 400 /CUMM) 197 MPV (7.4 - 10.4 FL) 8.3 Gran % (42.2 - 75.2 %) 68.8 Lymphocytes % (20.5 - 51.1 %) 14.4 L Monocytes % (1.7 - 9.3 %) 12.2 H Eosinophils % (0 - 5 %) 4.6 Basophils % (0.0 - 2.0 %) 0 L Absolute Granulocytes (1.4 - 6.5 /CUMM) 4.1 Absolute Lymphocytes (1.2 - 3.4 /CUMM) 0.9 L Absolute Monocytes (0.10 - 0.60 /CUMM) 0.7 H Absolute Eosinophils (0.0 - 0.7 /CUMM) 0.3 Absolute Basophils (0.0 - 0.2 /CUMM) 0 PUBS MCHC (33.0 - 37.0 G/DL) 32.7 L Last 24 Hours of Sushil Results: Blood cultures October 12 negative Recent Imaging Studies: Chest x-ray October 14, personally reviewed, reveals cardiomegaly with bibasilar atelectasis, left greater than right Modified barium swallow October 13 reveals transient penetration of contrast to above the level of the vocal cords Assessment/Plan Impression: Improved, with decreasing oxygen requirements, with temperatures and white blood cell count remaining normal off antibiotics. Her one positive blood culture for diphtheroids represents a contaminant and her repeat blood cultures remain negative. Suggestion: 1. Continue to follow off antibiotics Will no longer follow at this time, but please call with any questions
[2016-10-14 16:11] VITALS: BP 132/70
--- NOTE | 2016-10-14 19:02 | PN- Cardiology ---
Subjective Subjective: IMproved overall. No new CV symptoms. NO significant bradyarrhythmias noted on the monitor. Objective Vital Signs and I&Os Vital Signs Date Time Temp Pulse Resp B/P Pulse O2 O2 Flow FiO2 Ox Delivery Rate 10/14 1611 98.0 72 20 132/70 96 Nasal 4.0L Cannula 10/14 1125 95 Nasal 4.0L Cannula 10/14 0921 74 149/67 10/14 0921 74 149/67 10/14 0800 96.3 72 23 130/72 96 Nasal 5.0L Cannula 10/14 0748 96 Nasal 5.0L Cannula 10/14 0400 92 Nasal 5.0L Cannula 10/14 0000 97 Nasal 5.0L Cannula 10/14 0000 98.4 73 24 140/84 97 Nasal 5.0L Cannula 10/13 2043 94 Nasal 45% Cannula Intake & Output 10/14 1600 10/14 0800 10/14 0000 10/13 1600 10/13 0800 10/13 0000 Intake Total 530 50 220 250 310 260 Output Total 440 150 600 250 400 200 Balance 90 -100 -380 0 -90 60 Intake, IV 250 200 Intake, Oral 530 50 220 250 60 60 Number 0 0 2 0 0 Bowel Movements Output, Stool 0 Output, Urine 440 150 600 250 400 200 Current Medications: Current Medications Sig/Rajeev Start time Last Medication Dose Route Stop Time Status Admin Amlodipine Besylate 10 MG DAILY 10/11 1000 AC 10/14 PO 0921 Clopidogrel Bisulfate 75 MG DAILY 10/12 1437 AC 10/14 PO 0921 Docusate Sodium 100 MG DAILY NEEDED PRN 10/12 0230 AC 10/12 PO 0621 Enoxaparin Sodium 40 MG DAILY 10/11 1000 AC 10/14 SC 0921 Glycerin 2 SPRAY Q2P PRN 10/10 1145 AC 10/12 PO 2154 Insulin Aspart 0 TIDAC 10/11 1700 AC 10/14 SC 1431 Levothyroxine Sodium 0.05 MG DAILY AC 10/11 0700 AC 10/14 PO 0614 Metoprolol Tartrate 25 MG BID 10/10 2200 AC 10/14 PO 0921 Morphine Sulfate 2 MG Q6P PRN 10/10 1145 AC IV Olanzapine 2.5 MG QPM 10/10 2200 AC 10/13 PO 2159 Omeprazole 20 MG DAILY AC 10/11 0700 AC 10/14 PO 0614 Oxycodone HCl 5 MG Q6 PRN 10/10 1145 DC 10/12 PO 0636 Potassium Chloride 20 MEQ DAILY 10/13 1730 AC 10/14 PO 0921 Senna/Docusate Sodium 2 TAB DAILY NEEDED PRN 10/12 0230 AC PO Sodium Chloride 2 SPRAY Q4P PRN 10/12 2215 AC HARSHIL Tramadol HCl 25 MG Q6 PRN 10/10 1145 AC PO Results Last 48 Hrs of Labs/Mics: Laboratory Tests 10/14/16 0500: Anion Gap 9, Estimated GFR > 60, Glucose 111 H, Calcium 8.1 L, Phosphorus 3.6, Magnesium 2.3, Total Bilirubin 0.6, AST 12 L, ALT 34, Albumin 2.5 L, PT 11.4, INR 1.09, APTT 32, CBC w Diff NO MAN DIFF REQ, RBC 4.36, MCV 88.1, MCH 28.8, RDW 14.4, MPV 8.3, Gran % 68.8, Lymphocytes % 14.4 L, Monocytes % 12.2 H, Eosinophils % 4.6, Basophils % 0 L, Absolute Granulocytes 4.1, Absolute Lymphocytes 0.9 L, Absolute Monocytes 0.7 H, Absolute Eosinophils 0.3, Absolute Basophils 0, PUBS MCHC 32.7 L 10/13/16 0624: Anion Gap 7, Estimated GFR > 60, BUN/Creatinine Ratio 18.3, Magnesium 2.0, Total Bilirubin 0.9, Direct Bilirubin 0.5 H, AST 15, ALT 34, Alkaline Phosphatase 94, Troponin I < 0.01, Total Protein 5.1 L, Albumin 2.6 L 10/13/16 0425: CBC w Diff NO MAN DIFF REQ, RBC 4.41, MCV 88.3, MCH 28.8, RDW 14.3, MPV 8.8, Gran % 75.1, Lymphocytes % 13.8 L, Monocytes % 9.6 H, Eosinophils % 1.2, Basophils % 0.3, Absolute Granulocytes 4.8, Absolute Lymphocytes 0.9 L, Absolute Monocytes 0.6, Absolute Eosinophils 0.1, Absolute Basophils 0, PUBS MCHC 32.6 L 10/13/16 0108: Troponin I < 0.01 10/12/16 1924: D-Dimer 976 H Microbiology 10/12 2229 UPPER RESP: Surveillance Culture - COMP 10/12 2229 GI: Surveillance Culture - COMP Assessment/Plan Assessment/Plan Assessment: 1. Hypoxemic respiratory failure of unclear etiology - No CHF, effusion or PE on CTA; bibasilar atelectasis noted. At the present time, there is no obvious cardiac etiology for her hypoxemia. On examination, there is no evidence of overt prosthetic valve failure. Echocardiogram iwas technically suboptimal and shunt, though unlikely, could not be ruled out by the echocardiogram. 2. Reported arrhythmia with long pauses 3. Frequent atrial and ventricular ectopy. 4. History of AVR 5. HTN 6. Hypothyroidism Recommendations: - Continue current management - Keep on telemetry for now to monitor for further bradycardia. - Further plans in AM Continue telemetry? Yes
[2016-10-15 01:20] VITALS: BP 138/74
--- NOTE | 2016-10-15 06:53 | PN- Housestaff ---
Subjective Follow-up For: Status postcholecystectomy, postoperative hypoxic respiratory failure, bradycardia Complaints: no complaints Tele-Events Since Last Visit: Sinus rhythm, heart rate ranging from 65-73 Subjective: I followed and examined the patient today. She is resting comfortably in her bed, not in distress, and her only complaint is feeling in her right side of her neck, which is worse when she turns around. She is still requiring additional oxygen via nasal cannula at 4 L/m, is not bradycardic, vitals have been stable otherwise, and does not have any overnight issues. Review of Systems Constitutional: Reports: see HPI. Objective Last 24 Hrs of Vital Signs/I&O Vital Signs Date Time Temp Pulse Resp B/P Pulse O2 O2 Flow FiO2 Ox Delivery Rate 10/15 1549 99.1 69 16 102/64 95 Nasal 3.0L Cannula 10/15 1130 Nasal 4.0L Cannula 10/15 1118 83 118/70 10/15 1117 83 118/70 10/15 0800 94 Nasal 4.0L Cannula 10/15 0746 97.7 72 16 118/78 94 Nasal 4.0L Cannula 10/15 0120 98.5 68 20 138/74 95 Nasal Cannula 10/15 0000 Nasal 4.0L Cannula 10/14 2056 76 140/72 10/14 1910 95 Nasal 4.0L Cannula Intake & Output 10/15 1600 10/15 0800 10/15 0000 Intake Total 480 310 Output Total 400 800 Balance 480 -400 -490 Intake, IV 10 Intake, Oral 480 300 Number 0 Bowel Movements Output, Urine 400 800 Physical Exam General Appearance: Alert, Oriented X3, Cooperative, No Acute Distress Other Physical Findings: Head: atraumatic, normal appearance Ears, Nose, Throat: normal ENT inspection Neck: supple, has a lipoma around 5 x 4 cm at back of her neck more towards right side, nontender Respiratory: chest non-tender, no respiratory distress, quiet respiration, decreased breath souds, no wheezing no rhonchi, is on NC at 4 L/min Cardiovascular: regular rate/rhythm Gastrointestinal: soft, non-tender Current Medications: Current Medications Sig/Rajeev Start time Last Medication Dose Route Stop Time Status Admin Amlodipine Besylate 10 MG DAILY 10/11 1000 AC 10/15 PO 1117 Clopidogrel Bisulfate 75 MG DAILY 10/12 1437 AC 10/15 PO 1117 Diclofenac Sodium 1 RICHMOND 4 TIMES/DAY 10/15 1000 AC 10/15 TOP 1500 Docusate Sodium 100 MG DAILY NEEDED PRN 10/12 0230 AC 10/12 PO 0621 Enoxaparin Sodium 40 MG DAILY 10/11 1000 AC 10/15 SC 1118 Glycerin 2 SPRAY Q2P PRN 10/10 1145 AC 10/12 PO 2154 Insulin Aspart 0 TIDAC 10/11 1700 AC 10/15 SC 1312 Levothyroxine Sodium 0.05 MG DAILY AC 10/11 0700 AC 10/15 PO 0610 Metoprolol Tartrate 25 MG BID 10/10 2200 AC 10/15 PO 1118 Morphine Sulfate 2 MG Q6P PRN 10/10 1145 DC IV Olanzapine 2.5 MG QPM 10/10 2200 AC 10/14 PO 205 Omeprazole 20 MG DAILY AC 10/11 0700 AC 10/15 PO 0610 Potassium Chloride 20 MEQ DAILY 10/13 1730 AC 10/15 PO 1117 Senna/Docusate Sodium 2 TAB DAILY NEEDED PRN 10/12 0230 AC PO Sodium Chloride 2 SPRAY Q4P PRN 10/12 2215 AC HARSHIL Tramadol HCl 25 MG Q6 PRN 10/10 1145 DC PO Last 24 Hrs of Lab/Sushil Results Last 24 Hrs of Labs/Mics: Laboratory Tests 10/15/16 1040: Anion Gap 10, Estimated GFR > 60, BUN/Creatinine Ratio 20.0, Magnesium 2.3 Assessment/Plan Assessment: 86/F who presented with right upper quadrant pain. CT abdomen and pelvis was done and reveals Multiple gallstones with the findings being suspicious for acute cholecystitis. She was been found to have evidence of cholecystitis and choledocholithiasis on an MRCP. ERCP was done with sphincterotomy/balloon extraction, approximately 6 stones were removed. On admission examination: RUQ tenderness. Initially Lactic acid was elevated to 2.9. Her liver function test was abnormal. Urinalysis was benign. #Discharge disposition: She is still requiring oxygen via NC at 3 l/min today, and this resp difficulty has been present since post-operative period. Dr Lobo is on board and agrees to the plan to try taper her oxygen, and if and when she is taking lesser, i.e., 2 l/min oxygen rate via NC, then can be discharged to [facility]. #Cholecystitis secondary to obstructive stones, cholecystectomy (10/10/16) POD#5 One of two blood cultures that were sent on admission growing Diptheroids, likely contamination. Patient WBCs within normal limits, she is hemodynamically stable, and afebrile. * We'll continue watch off antibiotic as per ID recommendations. * Continue omeprazole 20 mg daily * Trying to taper her pain meds * We will follow-up liver enzymes * Continue Plavix (from POD2) per surgery. * Follow up with in 2 weeks post DC. #History of aortic valve replacement and recent bradycardia On admission patient EKG shows nonspecific abnormalities. It's not significantly different from the last EKG that we had in 2012. However given the long history of valve replacement, troponin and EKG were trended- negative. * She had episodes of bradycardia, and was thus transfered to telemetry unit for monitoring and action if needed, but she has not required it at all as her heart rate has been in normal range all time while she is in telemetry unit. * Per cardiology, she can be watched off telemetry from today. Remove pacer pads and no pacer nearby required 24 hrs anymore. #Right sided neck pain, likely mechanical Would benefit from local NSAID, local Diclofenac gel over the area locally. #Hypothyroidism * Continue levothyroxin 0.05 mg daily #Hypertension * Continue metoprolol 25 mg daily * Continue amlodipine 10 mg daily #DM * Finger stick * Insulin sliding scale Continue all other home medication Regular diet DVT prophylaxis plavix Full code Problem List: 1. Acute cholecystitis 2. Choledocholithiasis 3. Hiatal hernia 4. Acute respiratory failure with hypoxia 5. Bradycardia Pain Ratin Pain Location: - Pain Goal: Remain pain free Pain Plan: prn Tomorrow's Labs & Rationales: BEP, Mg to replete lytes
[2016-10-15 07:46] VITALS: BP 118/78
--- NOTE | 2016-10-15 09:39 | PN- Pulmonary ---
Subjective HPI/Critical Care Issues: pt seen and examined transferred out of icu c/o neck pain respiratory status stable Objective Current Medications: Current Medications Sig/Rajeev Start time Last Medication Dose Route Stop Time Status Admin Amlodipine Besylate 10 MG DAILY 10/11 1000 AC 10/14 PO 0921 Clopidogrel Bisulfate 75 MG DAILY 10/12 1437 AC 10/14 PO 0921 Diclofenac Sodium 1 RICHMOND 4 TIMES/DAY 10/15 1000 AC TOP Docusate Sodium 100 MG DAILY NEEDED PRN 10/12 0230 AC 10/12 PO 0621 Enoxaparin Sodium 40 MG DAILY 10/11 1000 AC 10/14 SC 0921 Glycerin 2 SPRAY Q2P PRN 10/10 1145 AC 10/12 PO 2154 Insulin Aspart 0 TIDAC 10/11 1700 AC 10/14 SC 1431 Levothyroxine Sodium 0.05 MG DAILY AC 10/11 0700 AC 10/15 PO 0610 Metoprolol Tartrate 25 MG BID 10/10 2200 AC 10/14 PO 2056 Morphine Sulfate 2 MG Q6P PRN 10/10 1145 AC IV Olanzapine 2.5 MG QPM 10/10 2200 AC 10/14 PO 2054 Omeprazole 20 MG DAILY AC 10/11 0700 AC 10/15 PO 0610 Potassium Chloride 20 MEQ DAILY 10/13 1730 AC 10/14 PO 0921 Senna/Docusate Sodium 2 TAB DAILY NEEDED PRN 10/12 0230 AC PO Sodium Chloride 2 SPRAY Q4P PRN 10/12 2215 AC HARSHIL Tramadol HCl 25 MG Q6 PRN 10/10 1145 AC PO Vital Signs & I&O Last 24 Hrs of Vitals and I&O: Vital Signs Date Time Temp Pulse Resp B/P Pulse O2 O2 Flow FiO2 Ox Delivery Rate 10/15 0746 97.7 72 16 118/78 94 Nasal 4.0L Cannula 10/15 0120 98.5 68 20 138/74 95 Nasal Cannula 10/15 0000 Nasal 4.0L Cannula 10/14 2056 76 140/72 10/14 1910 95 Nasal 4.0L Cannula 10/14 1611 98.0 72 20 132/70 96 Nasal 4.0L Cannula 10/14 1600 95 Nasal 4.0L Cannula 10/14 1125 95 Nasal 4.0L Cannula Intake & Output 10/15 1600 10/15 0800 10/15 0000 Intake Total 310 Output Total 400 800 Balance -400 -490 Intake, IV 10 Intake, Oral 300 Number 0 Bowel Movements Output, Urine 400 800 Exam Other Physical Findings: gen awake and alert heent neck discomfort on right, ?lipoma cvs s1, s2 lungs rare rhonchi bibasilar abd soft, bs+ ext without edema Impression/Plan Impression/Plan Impression/Plan: Impression 86-year-old woman * Resolving Postoperative respiratory failure and hypoxemia likely secondary to hypoinflation requiring high flow oxygen, all likely related to atelectasis * Arrhythmia with long pauses and atrial and ventricular ectopy * History of aVR * Hypertension and hypothyroidism * neck discomfort - defer to primary team Plan -Reduce FiO2 requirements as tolerated to maintain oxygen saturation above 92% -Incentive spirometry coupled with pain control judiciously -No evidence of pulmonary emboli, no effusions or congestion -Cardiology consultation with Dr. Vilchis appreciated -Continue Plavix DVT prophylaxis at all times IST at least 10 times daily
--- NOTE | 2016-10-15 09:46 | PN- Att Addend ---
Attending Addendum Attending Brief Note Patient oxygen requirement improved and she is awake and alert. She complains of right-sided neck pain. General Appearance: Awake and alert Skin: Grossly normal HEENT: PEERLA Neck: Supple, No JVD Cardiovascular: Regular Rate, Normal S1, Normal S2, No Murmurs Lungs: Clear to Auscultation, Normal Air Movement Abdomen: Right quadrant pain Neurological: Normal Speech, Strength at 5/5 X4 Ext, Cranial Nerves 3-12 NL, Reflexes 2+ Extremities: No Clubbing, No Cyanosis, No Edema Vascular: Normal Pulses Assessment 86-year-old with history of diabetes, hypertension, GERD, hypothyroidism, history of CVA and aortic valve replacement, presenting with right upper quadrant pain. MRCP confirmed mild cholecystitis with choledocholithiasis for which she underwent ERCP status post balloon dilatation and sphincterotomy. She is currently status post cholecystectomy currently being followed off antibiotics. Diphtheroids and 1 out of 2 bottles likely contamination. Now requiring high flow oxygen with CTA negative. Suspect hypoxic respiratory failure is in the setting of Roxicodone vs pain. Her oxygen requirements have improved. Minimal pain. Plan Discontinue pain meds voltaren gel and apply heat pack to the neck Incentive spirometry Out of bed to chair Follow off antibiotics Taper oxygen as tolerated PT evaluation Continue other home medications including insulin subcutaneous DVT prophylaxis Current Medications Sig/Rajeev Start time Last Medication Dose Route Stop Time Status Admin Amlodipine Besylate 10 MG DAILY 10/11 1000 AC 10/14 PO 0921 Clopidogrel Bisulfate 75 MG DAILY 10/12 1437 AC 10/14 PO 0921 Diclofenac Sodium 1 RICHMOND 4 TIMES/DAY 10/15 1000 AC TOP Docusate Sodium 100 MG DAILY NEEDED PRN 10/12 0230 AC 10/12 PO 0621 Enoxaparin Sodium 40 MG DAILY 10/11 1000 AC 10/14 SC 0921 Glycerin 2 SPRAY Q2P PRN 10/10 1145 AC 10/12 PO 215 Insulin Aspart 0 TIDAC 10/11 1700 AC 10/14 SC 1431 Levothyroxine Sodium 0.05 MG DAILY AC 10/11 0700 AC 10/15 PO 0610 Metoprolol Tartrate 25 MG BID 10/10 2200 AC 10/14 PO 205 Morphine Sulfate 2 MG Q6P PRN 10/10 1145 AC IV Olanzapine 2.5 MG QPM 10/10 2200 AC 10/14 PO 205 Omeprazole 20 MG DAILY AC 10/11 0700 AC 10/15 PO 0610 Potassium Chloride 20 MEQ DAILY 10/13 1730 AC 10/14 PO 0921 Senna/Docusate Sodium 2 TAB DAILY NEEDED PRN 10/12 0230 AC PO Sodium Chloride 2 SPRAY Q4P PRN 10/12 2215 AC HARSHIL Tramadol HCl 25 MG Q6 PRN 10/10 1145 AC PO Vital Signs Date Time Temp Pulse Resp B/P Pulse O2 O2 Flow FiO2 Ox Delivery Rate 10/15 0746 97.7 72 16 118/78 94 Nasal 4.0L Cannula 10/15 0120 98.5 68 20 138/74 95 Nasal Cannula 10/15 0000 Nasal 4.0L Cannula 10/146 76 140/72 10/14 1910 95 Nasal 4.0L Cannula 10/14 1611 98.0 72 20 132/70 96 Nasal 4.0L Cannula 10/14 1600 95 Nasal 4.0L Cannula 10/14 1125 95 Nasal 4.0L Cannula
[2016-10-15 15:49] VITALS: BP 102/64
[2016-10-16 00:07] VITALS: BP 118/78
[2016-10-16 08:28] VITALS: BP 148/84
--- NOTE | 2016-10-16 08:29 | PN- Housestaff ---
ROGERIO WADE 10/16/16 0828: Subjective Follow-up For: cholesystitis and cholecystectomy Tele-Events Since Last Visit: gen med Subjective: I have seen and examined the patient. Patient does not have any nausea, vomiting, abdominal pain fevers, chills. Patient is still on 4 L oxygen. Vital signs are stable. Possible discharge today Review of Systems Constitutional: Reports: see HPI. Objective Last 24 Hrs of Vital Signs/I&O Vital Signs Date Time Temp Pulse Resp B/P Pulse O2 O2 Flow FiO2 Ox Delivery Rate 10/16 0942 80 148/84 10/16 0942 80 148/84 10/16 0828 98.7 80 18 148/84 95 Nasal 3.0L Cannula 10/16 0800 Nasal 3.0L Cannula 10/16 0007 98.9 64 16 118/78 96 Nasal Cannula 10/16 0000 95 Nasal 3.0L Cannula 10/15 2133 80 108/70 10/15 1600 95 Nasal 3.0L Cannula 10/15 1549 99.1 69 16 102/64 95 Nasal 3.0L Cannula 10/15 1130 Nasal 4.0L Cannula 10/15 1118 83 118/70 10/15 1117 83 118/70 Intake & Output 10/16 1600 10/16 0800 10/16 0000 Intake Total 100 420 Output Total 300 500 Balance -200 -80 Intake, IV 20 Intake, Oral 100 400 Number 0 Bowel Movements Output, Urine 300 500 Physical Exam General Appearance: Alert, Oriented X3, Cooperative, No Acute Distress Other Physical Findings: Head: atraumatic, normal appearance Ears, Nose, Throat: normal ENT inspection Neck: supple, has a lipoma around 5 x 4 cm at back of her neck more towards right side, nontender Respiratory: chest non-tender, no respiratory distress, quiet respiration, decreased breath souds, no wheezing no rhonchi, is on NC at 4 L/min Cardiovascular: regular rate/rhythm Gastrointestinal: soft, non-tender Current Medications: Current Medications Sig/Rajeev Start time Last Medication Dose Route Stop Time Status Admin Amlodipine Besylate 10 MG DAILY 10/11 1000 AC 10/16 PO 0942 Clopidogrel Bisulfate 75 MG DAILY 10/12 1437 AC 10/16 PO 0942 Diclofenac Sodium 1 RICHMOND 4 TIMES/DAY 10/15 1000 AC 10/16 TOP 0942 Docusate Sodium 100 MG .STK-MED ONE 10/15 194 DC PO 10/15 194 Docusate Sodium 100 MG DAILY NEEDED PRN 10/12 0230 AC 10/16 PO 0942 Enoxaparin Sodium 40 MG DAILY 10/11 1000 AC 10/16 SC 0943 Glycerin 2 SPRAY Q2P PRN 10/10 1145 AC 10/12 PO 2154 Insulin Aspart 0 TIDAC 10/11 1700 AC 10/15 SC 1312 Levothyroxine Sodium 0.05 MG DAILY AC 10/11 0700 AC 10/16 PO 0647 Metoprolol Tartrate 25 MG BID 10/10 2200 AC 10/16 PO 0942 Morphine Sulfate 2 MG Q6P PRN 10/10 1145 DC IV Olanzapine 2.5 MG QPM 10/10 2200 AC 10/15 PO 2131 Omeprazole 20 MG DAILY AC 10/11 0700 AC 10/16 PO 0647 Polyethylene Glycol 17 GM DAILY 10/16 1000 AC PO Potassium Chloride 20 MEQ DAILY 10/13 1730 AC 10/16 PO 0942 Senna/Docusate Sodium 2 TAB DAILY NEEDED PRN 10/12 0230 AC 10/16 PO 0941 Sodium Chloride 2 SPRAY Q4P PRN 10/12 2215 AC HARSHIL Tramadol HCl 25 MG Q6 PRN 10/10 1145 DC PO Last 24 Hrs of Lab/Sushil Results Last 24 Hrs of Labs/Mics: Laboratory Tests 10/16/16 0600: Anion Gap 11, Estimated GFR > 60, BUN/Creatinine Ratio 25.0, Magnesium 2.2 10/15/16 1040: Anion Gap 10, Estimated GFR > 60, BUN/Creatinine Ratio 20.0, Magnesium 2.3 Assessment/Plan Assessment: 86/F who presented with right upper quadrant pain. CT abdomen and pelvis was done and reveals Multiple gallstones with the findings being suspicious for acute cholecystitis. She was been found to have evidence of cholecystitis and choledocholithiasis on an MRCP. ERCP was done with sphincterotomy/balloon extraction, approximately 6 stones were removed. On admission examination: RUQ tenderness. Initially Lactic acid was elevated to 2.9. Her liver function test was abnormal. Urinalysis was benign. #Discharge disposition: She is still requiring oxygen via NC at 3 l/min today, and this resp difficulty has been present since post-operative period. Dr Lobo is on board and agrees to the plan to try taper her oxygen, and if and when she is taking lesser, i.e., 2 l/min oxygen rate via NC, then can be discharged to [facility]. #Cholecystitis secondary to obstructive stones, cholecystectomy (10/10/16) POD#5 One of two blood cultures that were sent on admission growing Diptheroids, likely contamination. Patient WBCs within normal limits, she is hemodynamically stable, and afebrile. * We'll continue watch off antibiotic as per ID recommendations. * Continue omeprazole 20 mg daily * Trying to taper her pain meds * We will follow-up liver enzymes * Continue Plavix (from POD2) per surgery. * Follow up with in 2 weeks post DC. #History of aortic valve replacement and recent bradycardia On admission patient EKG shows nonspecific abnormalities. It's not significantly different from the last EKG that we had in 2011. However given the long history of valve replacement, troponin and EKG were trended- negative. * She had episodes of bradycardia, and was thus transfered to telemetry unit for monitoring and action if needed, but she has not required it at all as her heart rate has been in normal range all time while she is in telemetry unit. * Per cardiology, she can be watched off telemetry from today. Remove pacer pads and no pacer nearby required 24 hrs anymore. #Right sided neck pain, likely mechanical Would benefit from local NSAID, local Diclofenac gel over the area locally. #Hypothyroidism * Continue levothyroxin 0.05 mg daily #Hypertension * Continue metoprolol 25 mg daily * Continue amlodipine 10 mg daily #DM * Finger stick * Insulin sliding scale Continue all other home medication Regular diet DVT prophylaxis plavix Full code Problem List: 1. Acute cholecystitis Pain Ratin Pain Location: no pain Pain Goal: Pain 4 or less Pain Plan: same Tomorrow's Labs & Rationales: discharge today YARIEL BEJARANO MD 10/16/16 1241: Attending MD Review Statement Attending Statement Attending MD Statement: examined this patient, discuss w/resident/PA/CARE TAKER, agreed w/resident/PA/CARE TAKER, reviewed EMR data (avail), amended to note Attending Assessment/Plan: Mrs. Britton was interviewed and examined. Her EHR was reviewed. She has no cardiovascular, pulmonary, or GI complaints. Sshe specifically denies shortness of breath and abdominal pain. She remains afebrile. Her systolic pressure is approximately 150. She is saturating in the mid 90s on 3 L via nasal cannula. Pulmonary exam reveals decreased breath sounds. Cardiovascular and abdominal exams are benign. CBC and BMP are satisfactory. At this time she is stable for transfer to short-term rehabilitation. Supplemental oxygen should be tapered as saturations allow. Her CMR has been reviewed and signed. Surgical and medical follow up should be scheduled once she is discharged from short-term rehabilitation.
--- NOTE | 2016-10-16 09:16 | PN- Pulmonary ---
Subjective HPI/Critical Care Issues: Patient is comfortable without complaints she denies shortness of breath Objective Current Medications: Current Medications Sig/Rajeev Start time Last Medication Dose Route Stop Time Status Admin Amlodipine Besylate 10 MG DAILY 10/11 1000 AC 10/15 PO 1117 Clopidogrel Bisulfate 75 MG DAILY 10/12 1437 AC 10/15 PO 1117 Diclofenac Sodium 1 RICHMOND 4 TIMES/DAY 10/15 1000 AC 10/15 TOP 2131 Docusate Sodium 100 MG .STK-MED ONE 10/15 194 DC PO 10/15 1946 Docusate Sodium 100 MG DAILY NEEDED PRN 10/12 0230 AC 10/15 PO 1946 Enoxaparin Sodium 40 MG DAILY 10/11 1000 AC 10/15 SC 1118 Glycerin 2 SPRAY Q2P PRN 10/10 1145 AC 10/12 PO 2154 Insulin Aspart 0 TIDAC 10/11 1700 AC 10/15 SC 1312 Levothyroxine Sodium 0.05 MG DAILY AC 10/11 0700 AC 10/16 PO 0647 Metoprolol Tartrate 25 MG BID 10/10 2200 AC 10/15 PO 2133 Morphine Sulfate 2 MG Q6P PRN 10/10 1145 DC IV Olanzapine 2.5 MG QPM 10/10 2200 AC 10/15 PO 2131 Omeprazole 20 MG DAILY AC 10/11 0700 AC 10/16 PO 0647 Polyethylene Glycol 17 GM DAILY 10/16 1000 AC PO Potassium Chloride 20 MEQ DAILY 10/13 1730 AC 10/15 PO 1117 Senna/Docusate Sodium 2 TAB DAILY NEEDED PRN 10/12 0230 AC 10/15 PO 1946 Sodium Chloride 2 SPRAY Q4P PRN 10/12 2215 AC HARSHIL Tramadol HCl 25 MG Q6 PRN 10/10 1145 DC PO Vital Signs & I&O Last 24 Hrs of Vitals and I&O: Vital Signs Date Time Temp Pulse Resp B/P Pulse O2 O2 Flow FiO2 Ox Delivery Rate 10/16 0828 98.7 80 18 148/84 95 Nasal 3.0L Cannula 10/16 0800 Nasal 3.0L Cannula 10/16 0007 98.9 64 16 118/78 96 Nasal Cannula 10/16 0000 95 Nasal 3.0L Cannula 10/15 2133 80 108/70 10/15 1600 95 Nasal 3.0L Cannula 10/15 1549 99.1 69 16 102/64 95 Nasal 3.0L Cannula 10/15 1130 Nasal 4.0L Cannula 10/15 1118 83 118/70 10/15 1117 83 118/70 Intake & Output 10/16 1600 10/16 0800 10/16 0000 Intake Total 100 420 Output Total 300 500 Balance -200 -80 Intake, IV 20 Intake, Oral 100 400 Number 0 Bowel Movements Output, Urine 300 500 Oxygen saturation 3 L 95-96% exam for chest shows decreased breath sounds at the bases there are no wheezes heard cardiac exam shows regular S1 and S2 without murmurs is no edema Impression/Plan Impression/Plan Impression/Plan: 86-year-old woman with improving respiratory status for whom discharge is planned Recommendations: Continue IST oxygen can be further tapered follow-up with Dr. Lobo as an outpatient
[2016-10-16 14:24] VITALS: BP 148/84
== END 2016-10-16 15:00 | DRG 417 ==
LOC: ENRESERVDT → ENRESERVTM → ERH 07:45 → 1NO 16:49 → ERHI 16:49 → 2NB 16:49 → ENPENDDIS 16:49 → 2NB 19:26 → CRI 10-12 19:46 → 1NO 10-14 15:20
PROVIDERS: Emergency Medicine; Internal Medicine; Ophthalmology; Physician Assistant Surgical; Student in an Organized Health Care Education/Training Program; ADMIT Internal Medicine
PROC: 0FC98ZZ Extirpation of Matter from Common Bile Duct, Via Natural or Artificial Opening Endoscopic (ICD-10-PCS; principal; 2016-10-08)
PROC: 0FT44ZZ Resection of Gallbladder, Percutaneous Endoscopic Approach (ICD-10-PCS; 2016-10-10)
DX: K80.41 Calculus of bile duct with cholecystitis, unspecified, with obstruction (principal); J96.01 Acute respiratory failure with hypoxia; E11.9 Type 2 diabetes mellitus without complications; R00.1 Bradycardia, unspecified; I10 Essential (primary) hypertension; K21.9 Gastro-esophageal reflux disease without esophagitis; E03.9 Hypothyroidism, unspecified; Z86.73 Personal history of transient ischemic attack (TIA), and cerebral infarction without residual deficits; Z95.2 Presence of prosthetic heart valve; F41.9 Anxiety disorder, unspecified
CPT/HCPCS: 1NP; 2NBSP; 75661; CCU; 74177; 74183; 74230; 81001; 82436; 87040; 87071; 88304; 90662; 93005; 93010; 93306; 96361; 96374; 96375; 97110-GO; 97116-GO; 97161-GP; 97164-GP; 97530-GO; A9579; J0131; J0696; J0744; J1100; J1650; J1815; J1885; J2310; J2405; J7040; J7042; J7060; Q9967

== ENCOUNTER 2018-03-07 20:58 | Emergency (ER) | payer OTHER ==
[~2018-03-07 20:58] MED LIST: ACETAMINOPHEN-1 EAC3 PO; AMLODIPINE-BEN1 EAC5 PO; CLOPIDOGREL75 M1 PO; METOPROLOL TART25 M1 PO; OLANZAPINE5 M2 PO; RABEPRAZOLE SOD20 M1 PO; SYNTHROID50 MCG PO
[2018-03-07 21:39] LABS: ABSOLUTE BASOPHIL COUNT 0 /CUMM (0.0-0.2); ABSOLUTE EOSINOPHIL COUNT 0.1 /CUMM (0.0-0.7); ABSOLUTE GRANULOCYTE CT 3.5 /CUMM (1.4-6.5); ABSOLUTE LYMPH COUNT 1.9 /CUMM (1.2-3.4); ABSOLUTE MONOCYTE COUNT 0.6 /CUMM (0.10-0.60); BASOPHIL % 0.5 % (0.0-2.0); EOSINOPHIL % 1.4 % (0-5); GRANULOCYTE % 58.1 % (42.2-75.2); HEMATOCRIT 44.3 % (37-47); MEAN CORPUSCULAR HGB 29.7 PG (27.0-31.0); MEAN CORPUSCULAR HGB CONC 33.2 G/DL (33.0-37.0); MEAN CORPUSCULAR VOLUME 89.3 FL (81.0-99.0); MEAN PLATELET VOLUME 9.2 FL (7.4-10.4); PLATELET COUNT 200 /CUMM (130-400); RBC DISTRIBUTION WIDTH 13.8 % (11.5-14.5); RED BLOOD CELL CT 4.96 /CUMM (4.20-5.40); WHITE BLOOD CELL COUNT 6.1 /CUMM (4.8-10.8)
--- NOTE | 2018-03-07 22:27 | RADIOLOGY REPORT ---
EXAMINATION: XR CHEST CLINICAL INFORMATION: Weakness. Infection. COMPARISON: Chest x-ray 10/14/2016 TECHNIQUE: 2 views of the chest were obtained. FINDINGS: Stable enlargement of the cardiac silhouette. Postsurgical changes of the mediastinum. Atherosclerotic disease of the aorta. The lungs are adequately aerated without gross consolidation or pleural effusion. Diffuse osteopenia with degenerative changes of the spine. IMPRESSION: Stable examination. No gross lobar consolidation.
--- NOTE | 2018-03-08 00:12 | ED GENERAL ADULT ---
History of Present Illness General Chief Complaint: General Adult Stated Complaint: SIB URGENT CARE FOR DEHYDRATION Source: patient, family Exam Limitations: clinical condition Vital Signs & Intake/Output Vital Signs & Intake/Output Vital Signs Date Time Temp Pulse Resp B/P B/P Pulse O2 O2 Flow FiO2 Mean Ox Delivery Rate 03/08 1546 97.9 63 20 197/83 96 Room Air / 1324 98.0 65 18 150/70 95 Room Air 03/08 1017 97.7 70 18 159/72 98 Room Air 03/08 0828 97.4 88 20 144/80 09/ 0828 97.4 88 20 144/80 09/ 0828 97.4 88 20 144/80 09/ 0827 97.4 88 20 144/80 97 Room Air 09 0630 97.5 94 20 142/85 96 Room Air 03/08 0024 96.7 65 18 181/83 95 Room Air 03/07 2112 97.5 78 17 149/89 95 Room Air Allergies Coded Allergies: Penicillins (Intermediate, HIVES, ITCHING 10/08/16) Reconcile Medications Acetaminophen With Codeine (Acetaminophen-Cod #3 Tablet) 300 MG-30 MG TABLET 1 TAB PO DAILY PRN PAIN (Reported) Amlodipine Besylate/Benazepril (Amlodipine-Benazepril 10-40 MG) 10 MG-40 MG CAPSULE 1 CAP PO DAILY HEART (Reported) Clopidogrel Bisulfate (Clopidogrel) 75 MG TABLET 1 TAB PO DAILY BLOOD THINNER (Reported) Levothyroxine Sodium (Synthroid) 50 MCG TABLET 1 TAB PO DAILY AC THYROID ( Reported) Metoprolol Tartrate 25 MG TABLET 1 TAB PO BID HEART (Reported) Olanzapine 5 MG TABLET 0.5 TAB PO QPM SLEEP (Reported) Rabeprazole Sodium 20 MG TABLET.DR 1 TAB PO DAILY GI (Reported) Triage Note: PT TO ED WITH DAUGHTER WHOM HAS CONCERNS FOR POTENTIAL UTI. REPORTS CONFUSION FOR THE PAST 3-4 DAYS. HX STROKE WHEN PT WAS 70 YO. NEURO CHECK INTACT AT TRIAGE. SENT TO ED FOR BLOOD WORK, CT SCAN FROM URGENT CARE. U/A NEGATIVE PER PAPERWORK. Triage Nurses Notes Reviewed? yes Onset: Gradual Duration: day(s):, waxing and waning Timing: recent history Injury Environment: home Severity: moderate Modifying Factors: Improves With: rest. Associated Symptoms: increased confusion HPI: 87 yo woman from senior independent living, presents with increased confusion and paranoid delusions. Per her daughter, "She thinks that her neighbor is out to get her. She thinks that her neighbor is right outside the door when she is not there.... It makes her really upset... There is no one there and her neighbor is not out to get her." She presented to an urgent care center, concerned for a UTI. The urgent care referred her to the ED to consider iv fluids for dehydration. She notes that she drinks regularly, "but not that much." Her appetite has been unchanged. She notes increased fatigue and global weakness. She has no fever, chills, nausea, vomiting, cough, phlegm. (Lacho ACEVEDO,Jimmy Merchant) Past History Travel History Traveled to [place] past 21 day No Medical History Any Pertinent Medical History? see below for history Neurological: CVA, dementia Cardiovascular: hypertension Gastrointestinal: schatzki ring Musculoskeletal: osteoarthritis Psychiatric: anxiety Endocrine: hypothyroidism History of MRSA: No History of VRE: No History of CDIFF: No Pneumonia Vaccine: 07/04/09 Influenza Vaccine: 04/17/12 Surgical History Surgical History: appendectomy, hysterectomy, status post porcine aortic valve replacement Psychosocial History Who do you live with Patient/Self Services at Home None What is your primary language S[place]omean Tobacco Use: Never used Family History Family History, If Any: Relation not specified for: *No pertinent family history Hx Contributory? No (Jimmy Monk MD) Review of Systems Review of Systems Constitutional: Reports: no symptoms. EENTM: Reports: no symptoms. Respiratory: Reports: no symptoms. Cardiovascular: Reports: no symptoms. GI: Reports: no symptoms. Genitourinary: Reports: no symptoms. Musculoskeletal: Reports: no symptoms. Skin: Reports: no symptoms. Neurological/Psychological: Reports: no symptoms. Hematologic/Endocrine: Reports: no symptoms. Immunologic/Allergic: Reports: no symptoms. All Other Systems: Reviewed and Negative (Jimym Monk MD) Physical Exam Physical Exam General Appearance: well developed/nourished, no apparent distress Head: atraumatic, normal appearance Eyes: Bilateral: normal appearance. Ears, Nose, Throat: normal pharynx, normal ENT inspection, dry mucosa Neck: normal inspection, supple, full range of motion Respiratory: normal breath sounds, chest non-tender, no respiratory distress, quiet respiration, lungs clear Cardiovascular: regular rate/rhythm Gastrointestinal: normal bowel sounds, soft, non-tender, no organomegaly Back: normal inspection, normal range of motion Extremities: normal inspection Neurologic/Psych: no motor/sensory deficits, awake, alert, knows name Reflexes: 1+: bicep (R), bicep (L), knee (R), knee (L). Skin: intact, poor skin turgor Core Measures ACS in differential dx? No CVA/TIA Diagnosis: No Sepsis Present: No Sepsis Focused Exam Completed? No (Lacho ACEVEDO,Jimmy Merchant) Progress Differential Diagnoses I considered the following diagnoses in my evaluation of the patient: dehydration, uti, dementia vs other. Plan of Care: Orders Procedure Date/time Status Heart Healthy Diet 03/08 B Active PT Evaluate & Treat 03/08 25 Active ED CRISIS PSYCH CONSULT 03/08 25 Active CASE MANAGEMENT CONSULT 03/08 25 Active Theraputic Activities 15 Min 03/08 UNK Complete MOBILITY D/C STATUS 03/08 UNK Complete MOBILITY GOAL STATUS 03/08 UNK Complete MOBILITY CURRENT STATUS 03/08 UNK Complete Gait Training, 15 Min 03/08 UNK Complete PT EVAL LOW COMPLEX 20 MIN 03/08 UNK Complete URINALYSIS 03/07 2125 Complete TROPONIN LEVEL 03/07 2125 Complete PHOSPHORUS 03/07 2125 Complete MAGNESIUM 03/07 2125 Complete COMPREHENSIVE METABOLIC PANEL 03/07 2125 Complete CBC WITHOUT DIFFERENTIAL 03/07 2125 Complete EKG 03/07 2113 Active Current Medications Sig/Rajeev Start time Last Medication Dose Stop Time Status Admin Amlodipine Besylate 10 MG DAILY 03/08 900 UNVr 03/08 (Norvasc) 28 Clopidogrel Bisulfate 75 MG DAILY 03/08 900 UNVr 03/08 (Plavix) 0828 Lisinopril 40 MG DAILY 03/08 900 UNVr 03/08 (Prinivil) 0828 Metoprolol Tartrate 25 MG BID 03/08 900 UNVr 03/08 (Lopressor) 0828 Levothyroxine Sodium 0.05 MG DAILY AC 03/08 700 UNVr 03/08 (Synthroid) 0745 Omeprazole 20 MG DAILY AC 03/08 700 UNVr 03/08 (Prilosec) 0745 Laboratory Tests 03/07/18 2259: Urine Color YEL, Urine Clarity CLEAR, Urine pH 5.5, Ur Specific [place] 1.020, Urine Protein NEG, Urine Ketones NEG, Urine Nitrite NEG, Urine Bilirubin NEG, Urine Urobilinogen 0.2, Ur Leukocyte Esterase SMALL H, Ur Microscopic SEDIMENT EXAMINED, Urine RBC RARE, Urine WBC 1-3 H, Ur Epithelial Cells RARE, Urine Bacteria RARE H, Urine Mucus RARE, Urine Hemoglobin NEG, Urine Glucose NEG 03/07/182124: Anion Gap 11, Estimated GFR > 60, BUN/Creatinine Ratio 21.3, Glucose 126 H, Calcium 9.3, Phosphorus 3.8, Magnesium 2.1, Total Bilirubin 0.4, AST 22, ALT 45, Alkaline Phosphatase 102, Troponin I < 0.01, Total Protein 6.6, Albumin 3.9, Globulin 2.7, Albumin/Globulin Ratio 1.4, CBC w Diff NO MAN DIFF REQ, RBC 4.96, MCV 89.3, MCH 29.7, MCHC 33.2, RDW 13.8, MPV 9.2, Gran % 58.1, Lymphocytes % 30.5, Monocytes % 9.5 H, Eosinophils % 1.4, Basophils % 0.5, Absolute Granulocytes 3.5, Absolute Lymphocytes 1.9, Absolute Monocytes 0.6, Absolute Eosinophils 0.1, Absolute Basophils 0 Diagnostic Imaging: Viewed by Me: Radiology Read. Discussed w/RAD: Radiology Read. Radiology Impression: PATIENT: SRAVANTHI PARIKH PRESENT AGE: 87 PATIENT ACCOUNT NO: [id number] : [birth year] LOCATION: [facility] ORDERING PHYSICIAN: Yvette MARSH SERVICE DATE: 03/07/18 EXAM TYPE : RAD - XRY-CHEST XRAY, TWO VIEWS EXAMINATION: XR CHEST CLINICAL INFORMATION: Weakness. Infection. COMPARISON: Chest x-ray 10/14/2016 TECHNIQUE: 2 views of the chest were obtained. FINDINGS: Stable enlargement of the cardiac silhouette. Postsurgical changes of the mediastinum. Atherosclerotic disease of the aorta. The lungs are adequately aerated without gross consolidation or pleural effusion. Diffuse osteopenia with degenerative changes of the spine. IMPRESSION: Stable examination. No gross lobar consolidation. DICTATED BY: Ernie Bentley MD DATE/TIME DICTATED:03/07/182219 TRACTOR DRILL OPERATOR:DAYAN DATE/TIME TRANSCRIBED:03/07/182219 CONFIDENTIAL, DO NOT COPY WITHOUT APPROPRIATE AUTHORIZATION. <Electronically signed in Other Vendor System> SIGNED BY: Ernie Bentley MD 03/07/182226, PATIENT: SARVANTHI PARIKH PRESENT AGE: 87 PATIENT ACCOUNT NO: [id number] : [birth year] LOCATION: [facility] ORDERING PHYSICIAN: Jimmy Monk MD SERVICE DATE: 03/08/18 EXAM TYPE: CAT - CT HEAD WO IV CONTRAST EXAMINATION: CT HEAD WITHOUT CONTRAST CLINICAL INFORMATION: Mental status change. COMPARISON: May 08, 2012. TECHNIQUE: Contiguous axial images of the brain were obtained without IV contrast. DLP: 616 mGy-cm. FINDINGS: There are no pathologic extra-axial fluid collections. The lateral, third, fourth ventricles are nondilated and concordant with the appearance of the sulci. There is no evidence for acute intraparenchymal hemorrhage or infarct. There is neither mass nor mass effect. There is mild periventricular low-attenuation indicative of small vessel disease. There is no shift of midline structures. The paranasal sinuses and mastoid air cells are clear. There are no osseous lesions. IMPRESSION: No evidence for acute intracranial injury. Manifestations of small vessel disease. DICTATED BY: Abelino Maloney MD DATE/TIME DICTATED:03/08/18499 TRACTOR DRILL OPERATOR:DAYAN DATE/TIME TRANSCRIBED:03/08/18499 CONFIDENTIAL, DO NOT COPY WITHOUT APPROPRIATE AUTHORIZATION. <Electronically signed in Other Vendor System> SIGNED BY: Abelino Maloney MD 03/08/18504 Initial ED EKG: lbbb no change from prior (Lacho ACEVEDO,Jimmy Merchant) Comments: Please see crisis note. (Faisal ACEVEDO,Humza) Departure Departure Disposition: HOME OR SELF CARE Condition: Stable Clinical Impression Primary Impression: Delusions Referrals: Jaime ACEVEDO,Renzo Torrez (PCP/Family) Departure Forms: Customer Survey General Discharge Information Comments pt to be signed out to dr. lacey, pending crises eval, case management eval, PT eval. She will likely need med optimization, consider placement. (Jimmy Monk MD) Critical Care Note Critical Care Note Critical Care Time: non-applicable (Lacho ACEVEDO,Jimmy Merchant)
--- NOTE | 2018-03-08 05:05 | CT SCAN REPORT ---
EXAMINATION: CT HEAD WITHOUT CONTRAST CLINICAL INFORMATION: Mental status change. COMPARISON: May 08, 2012. TECHNIQUE: Contiguous axial images of the brain were obtained without IV contrast. DLP: 616 mGy-cm. FINDINGS: There are no pathologic extra-axial fluid collections. The lateral, third, fourth ventricles are nondilated and concordant with the appearance of the sulci. There is no evidence for acute intraparenchymal hemorrhage or infarct. There is neither mass nor mass effect. There is mild periventricular low-attenuation indicative of small vessel disease. There is no shift of midline structures. The paranasal sinuses and mastoid air cells are clear. There are no osseous lesions. IMPRESSION: No evidence for acute intracranial injury. Manifestations of small vessel disease.
--- NOTE | 2018-03-08 16:08 | ED PSYCH CRISIS CONSULTATION ---
Crisis Consult Basic Assessment Date of Consult: 03/08/18 Responsible Person/Accompanied By: Brought in by daughter Insurance Authorization: Insurance #1: Insurance name: [facility]ICARE [facility] H[facility] Phone number: Policy number: [id number] Group number: [id number] Authorization number: ED Provider: Patient's ED Provider: Humza Malone MD Primary Care Physician: Patient's PCP: Renzo Sandoval MD PCP's Current Psychiatrist: Geriatric Psychiatrist through [facility] Chief Complaint: General Adult Patient's Quote: "My daughter took me for a urine test." Present Illness: The patient is an 87 year old, female presenting to the hospital on the- concerns of her daughter, Carey. The patient presents calm and cooperative and is alert and oriented X4. She states that her daughter "wanted her to get a urine test." The patient states that she resides at home, alone in senior housing. She states that she is not depressed or anxious, noting that she does feel lonely at times. She states that she has a good life and when she is lonely,she works on her [employer] book. She denies any thoughts to harm herself or others. She states that she has aides that come to help her on Tuesday and and that her daughter Carey, comes to visit. The patient states that her only concern is that she has a 25 year old neighbor that often stands outside her home and yells her name. She states that sometimes "her neighbor holds a club and wants her to come outside." The patient denies any other hallucination, delusions or paranoia. She denies any drug or alcohol abuse. She would like to be discharged to go back home. YANELI spoke to her daughter Carey Britton ([phone], ), for collateral information. Carey states that she was concerned that the patient had a UTI and that she wanted her to be evaluated for that. Carey states that the patient is seen by a Geriatric specialist through [facility] and is [facility] to [facility]. Carey states that since her mother has been cleared for her UTI, that she would like her to be discharged home. Carey states that she arranged for family to be with the patient around the clock, until the patient sees her Geriatric specialist next week. Carey states that she will be advocating for [facility] to increase services. This clinical writer asked if she would like a visiting nurse to be set up, to assist with medications, however Carey states that at this time, she will be managing the patients medications. Carey states that the patient has never been suicidal or homicidal and has no concerns with her returning home today. Carey states that the patient does have a young disabled neighbor, that the patient has delusions about, however states that the neighbor has never done anything to harm the patient and is not a risk to the patient. Patient's Address: [address] [place] [address] Other Phone Number: Who Do You Live With? Patient/Self Family/Informants Interviewed: Glen Britton- [phone] Allergies - Coded Allergies: Penicillins (Intermediate, HIVES, ITCHING 10/08/16) Current Medications - Scheduled Medications Amlodipine Besylate/Benazepril (Amlodipine-Benazepril 10-40 MG) 10 MG-40 MG CAPSULE 1 CAP PO DAILY HEART #90 (Reported) Entered as Reported by Roderick Montana on 10/08/16818 Clopidogrel Bisulfate (Clopidogrel) 75 MG TABLET 1 TAB PO DAILY BLOOD THINNER #90 (Reported) Entered as Reported by Roderick Montana on 10/08/16818 Levothyroxine Sodium (Synthroid) 50 MCG TABLET 1 TAB PO DAILY AC THYROID #90 (Reported) Entered as Reported by Roderick Montana on 10/08/16 08 Metoprolol Tartrate 25 MG TABLET 1 TAB PO BID HEART #180 (Reported) Entered as Reported by Roderick Montana on 10/08/16 08 Olanzapine 5 MG TABLET 0.5 TAB PO QPM SLEEP #30 (Reported) Entered as Reported by Roderick Montana on 10/08/16 0832 Rabeprazole Sodium 20 MG TABLET.DR 1 TAB PO DAILY GI #90 (Reported) Entered as Reported by Roderick Montana on 10/08/16 0820 Scheduled PRN Medications Acetaminophen With Codeine (Acetaminophen-Cod #3 Tablet) 300 MG-30 MG TABLET 1 TAB PO DAILY PRN PAIN #30 (Reported) Entered as Reported by Roderick Montana on 10/08/16 0821 Laboratory Results: Laboratory Tests 03/07/189: Urine Color YEL, Urine Clarity CLEAR, Urine pH 5.5, Ur Specific [place] 1.020, Urine Protein NEG, Urine Ketones NEG, Urine Nitrite NEG, Urine Bilirubin NEG, Urine Urobilinogen 0.2, Ur Leukocyte Esterase SMALL H, Ur Microscopic SEDIMENT EXAMINED, Urine RBC RARE, Urine WBC 1-3 H, Ur Epithelial Cells RARE, Urine Bacteria RARE H, Urine Mucus RARE, Urine Hemoglobin NEG, Urine Glucose NEG 03/07/185: Anion Gap 11, Estimated GFR > 60, BUN/Creatinine Ratio 21.3, Glucose 126 H, Calcium 9.3, Phosphorus 3.8, Magnesium 2.1, Total Bilirubin 0.4, AST 22, ALT 45, Alkaline Phosphatase 102, Troponin I < 0.01, Total Protein 6.6, Albumin 3.9, Globulin 2.7, Albumin/Globulin Ratio 1.4, CBC w Diff NO MAN DIFF REQ, RBC 4.96, MCV 89.3, MCH 29.7, MCHC 33.2, RDW 13.8, MPV 9.2, Gran % 58.1, Lymphocytes % 30.5, Monocytes % 9.5 H, Eosinophils % 1.4, Basophils % 0.5, Absolute Granulocytes 3.5, Absolute Lymphocytes 1.9, Absolute Monocytes 0.6, Absolute Eosinophils 0.1, Absolute Basophils 0 Past History Past Medical History Neurological: CVA, dementia Cardiovascular: hypertension Gastrointestinal: schatzki ring Musculoskeletal: osteoarthritis, FRACTURED BILATERAL SHOULDERS Psychiatric: anxiety Endocrine: hypothyroidism Past Surgical History Surgical History: appendectomy, hysterectomy, status post porcine aortic valve replacement Psychosocial History Strengths/Capabilities: The patient resides in senior housing and has support from her family and [facility]. Physical Limitations (Interventions): Unclear Psychiatric Treatment History Psych Treatment Psychiatric Treatment Yes Inpatient Treatment No Outpatient Treatment Yes Location of Treatment [facility] Reason for Treatment Geriatric Psychiatry Dates of Treatment Currently in treatment and has appt. next week. Response to Treatment Per her daughter Carey, the Geriatric provider at [facility], does a great job with the patient and works with the [facility]. Diagnosis by History: N/A Substance Use/Abuse History Drug Use/Abuse Substances Used/Abused No First Use N/A Last Used N/A How much used/taken N/A How often N/A For how long N/A Route of use N/A Substance Abuse Treatment Substance Abuse Treatment Past Substance Abuse TX No Inpatient Treatment No Outpatient Treatment No Location of Treatment N/A Reason for Treatment N/A Dates of Treatment N/A Response to Treatment N/A Comments: N/A Current Mental Status Mental Status Orientation: Person, Place, Situation Affect: WNL Speech: WNL Neuro-vegetative: WNL Appearance Appearance- Dress/Hygiene: The patient was sitting in the bed and appeared neat and well kempt. Behaviors Thought Process: WNL Thought Content: The patient does appear to have a fixed delusion about her neighbor, which her daughter states is not true. Memory: WNL Insight: WNL SI/HI Risk Assessment Past Suicidal Ideation/Attempts No Current Suicidal Ideation/Att No Past Homicidal Ideation/Att: No Current Homicidal Ideation/Attempts No Degree of Intent: N/A Danger To: N/A Gravely Disabled: N/A Risk Factors: age (under 24/over 65), lives alone Lethality Ratin PTSD Checklist PTSD Done? pt unable to participate ED Management Sitter: No Restraints: No DSM5/PS Stressors/Medical Prob Diagnosis' (DSM 5, Stressors, Medical): R41.9 Unspecified Neurocognitive Disorder Medical: Hypothyroidism, Osteoarthritis, Hypertension, CVA. Current GAF: 45 Comments: N/A Departure Disposition Psych Medical Clearance Date: 03/08/18 Medically Cleared at: 1500 Time Started: 1500 Time Ended: 1600 Psychiatrist Consulted: Jimmy Dominique MD Date Disposition Established: 03/08/18 Time Disposition Established: 1600 Plan for Disposition - Modality: Outpatient (F/U with current provider) Rationale for Disposition: The patient presented to the ED, because her daughter was concerned that she had a UTI and that she needed more support at home. The patient was cleared by Medicine. She appears calm and cooperative, alert and oriented. She denies feeling depressed and denies any current suicidal or homicidal ideations. She does appear to have some fixed delsions. SW spoke to her daughter Carey, who has planned for her to return home and have family with her around the clock, until she sees her Geriatric Psychiatrist next week. Carey has no concerns for the patients safety and does not think she is a risk to herself or others. Carey will be calling the [facility] and asking them to increase supports (she already has aides twice a week). Carey states that she does not think that the patient needs a VNA to help with medications and states that she will be helping to dispense the patients medications. The Case was discused with Dr. Dominique and he does not find her to be a risk to herself and is in agreement with discharging her home, to follow up with her current provider through [facility]. Additional Instructions: N/A Referrals Jaime ACEVEDO,Renzo Torrez (PCP/Family)
[2018-03-08 19:31] VITALS: BP 148/72
== END 2018-03-08 19:30 ==
LOC: ERH 20:58
PROVIDERS: Physician Assistant
DX: F22 Delusional disorders (principal); F03.90 Unspecified dementia, unspecified severity, without behavioral disturbance, psychotic disturbance, mood disturbance, and anxiety; I10 Essential (primary) hypertension; K22.2 Esophageal obstruction; F41.9 Anxiety disorder, unspecified; E03.9 Hypothyroidism, unspecified; M19.90 Unspecified osteoarthritis, unspecified site
CPT/HCPCS: 71046; 81001; 93005; 93010; 97116-GP; 97161-GP; 97530-GP; G0463; G8978-GP; G8979-GP; G8980-GP